=== PATIENT | male | born 1945 | race Caucasian/White ===

== ENCOUNTER 2024-11-12 20:51 | Emergency (ER) | payer MEDICARE, SELFPAY ==
[2024-11-12] VITALS (7 sets, daily range): BP systolic 138–155; BP diastolic 91–98; PULSE 70–100; RESP 12–16; TEMP 36.7; O2SAT 94–99
--- NOTE | ~2024-11-12 | XR_ITS ---
CHEST RADIOGRAPH CLINICAL HISTORY: covid (+), feeling weak . COMPARISON: None available TECHNIQUE: Single portable view of the chest. FINDINGS The cardiomediastinal silhouette is unremarkable. Patchy groundglass opacification bilaterally. Remainder of the lungs are clear. IMPRESSION: Patchy groundglass opacification bilaterally without a focal infiltrate. Reviewed, dictated and finalized at location A.
--- NOTE | 2024-11-12 21:17 | ED_ITS ---
HPI - Weakness General Chief complaint: Weakness Stated complaint: COVID+, WORSENING COVID S/S, WEARS 4L HOME O2. Time Seen by Provider: 11/12/24 20:51 Source: patient Mode of arrival: EMS Limitations: no limitations History of Present Illness HPI Narrative: This is a 79-year-old male who with PMH of COPD on chronic 4 L O2 nasal cannula who presents to the ED for chief complaint of feeling unwell with recent COVID diagnosis. Patient states that he tested positive for COVID about a week ago. States that he had been doing okay the last several days but today started feeling very nauseous and having dry heaves. Denies any actual emesis. Denies diarrhea or GI bleeding symptoms. Denies urinary symptoms, flank pain, chest pain. States that he feels like he is breathing well and has not had to use his rescue inhaler. He is taking his regular inhalers as prescribed. Related Data Allergies Allergy/AdvReac Type Severity Reaction Status Date / Time No Known Allergies Allergy Verified 11/12/24 23:18 Review of Systems 2 Review of Systems: All systems as dictated in HPI Exam 2 Narrative: GENERAL: Well-appearing, well-nourished, and in no acute distress. HEAD: Normocephalic, atraumatic. EYES: PERRLA and EOMI. ENT: Nares clear, no rhinorrhea or epistaxis. Mucous membranes moist. Oropharynx without tonsillar hypertrophy exudate or other lesions. NECK: Supple. No adenopathy or masses. CHEST: No respiratory distress. Clear to auscultation. No wheezes rales or rhonchi. Saturating well on 4 L nasal cannula. HEART: Regular rate and rhythm. No murmur heard. Normal peripheral pulses. ABDOMEN: Soft, nontender, nondistended, normal active bowel sounds. MSK: Normal range of motion. No edema. SKIN: Warm, dry, no rash. NEURO: Alert and oriented x4. No focal deficits. PSYCH: Normal mood and affect. Course Vital Signs Vital signs: Vital Signs Pulse Rate 100 11/12/24 20:54 Respiratory Rate 16 11/12/24 20:54 Blood Pressure 155/91 H 11/12/24 20:54 Pulse Oximetry 98 11/12/24 20:54 Oxygen Delivery Nasal Cannula 11/12/24 20:54 Oxygen Flow Rate 4 11/12/24 20:54 Temperature 98.1 F 11/12/24 21:05 Pulse Rate 93 11/13/24 00:35 Respiratory Rate 16 11/13/24 00:35 Blood Pressure 116/87 11/13/24 00:35 Pulse Oximetry 97 11/13/24 00:35 Oxygen Delivery Nasal Cannula 11/12/24 23:53 Oxygen Flow Rate 4 11/12/24 23:53 MDM - Weakness MDM Narrative Medical decision making narrative: This is a 79-year-old male who presents to the ED for chief complaint of feeling generally weak and nauseous, after recently diagnosed with COVID. Vitals are normal. Exam is benign. He is saturating well on 4 L nasal cannula which is his baseline with COPD. He is not feeling short of breath or having chest pain today. Lab work is unremarkable overall. CXR: IMPRESSION: Patchy groundglass opacification bilaterally without a focal infiltrate Patient is feeling much better after fluid administration, Zofran and Tylenol. Presentation consistent with viral syndrome. He is well out of the window for any benefit from something like Paxlovid Patient will be discharged in stable condition. Supportive measures discussed and return precautions given. Patient is understanding and agreeable with plan for discharge with PCP follow-up. Lab Data 11/12/24 22:08 11/12/24 22:08 Labs: Lab Results 11/12/24 Range/Units 22:08 WBC 9.2 (4.5-10.0) K/mm3 RBC 5.16 (4.6-6.20) M/mm3 Hgb 16.2 (14.0-18.0) g/dL Hct 47.8 (42.0-52.0) % MCV 92.6 (80-100) fl MCH 31.4 (26-34) pg MCHC 33.9 (32-36) g/dl RDW 13.4 (11.5-14.5) % Plt Count 360 (150-375) k/mm3 MPV 8.9 (7.4-10.4) fl Immature Gran % (Auto) 0.2 (0-0.5) % Neut % (Auto) 59.0 (45.5-73.1) % Lymph % (Auto) 24.5 (18.3-44.2) % [place] % (Auto) 7.3 (2.6-8.5) % Eos % (Auto) 8.2 H (0-4.4) % Baso % (Auto) 0.8 (0.2-1.2) % Lymph # (Auto) 2.26 (0.9-3.2) K/mm3 [place] # (Auto) 0.7 H (0.1-0.6) K/mm3 Eos # (Auto) 0.8 H (0-0.3) K/mm3 Baso # (Auto) 0.1 (0.0-0.1) K/mm3 Abs Immat Gran (auto) 0.02 (0.00-0.031) K/mm3 Absolute Neuts (auto) 5.5 (1.3-6.7) K/mm3 Absolute Nucleated RBC 0.000 (0.0-0.012) K/mm3 Nucleated RBC % 0.0 (0.0-0.2) % Sodium 140 (137-145) mmol/L Potassium 4.0 (3.4-5.0) mmol/L Chloride 106 (98-107) mmol/L Carbon Dioxide 23 (22-30) mmol/L Anion Gap 11 (4-12) mmol/L BUN 13 (9-20) mg/dL Creatinine 1.07 (0.7-1.3) mg/dL Estim Creat Clear Calc 54 ml/min Estimated GFR > 60 (59 - ) Glucose 108 (65-110) mg/dL Calcium 9.0 (8.4-10.2) mg/dL Total Bilirubin 0.7 (0.2-1.3) mg/dL AST 31 (17-59) U/L ALT 30 (6-50) U/L Alkaline Phosphatase 135 H (38-126) U/L Total Protein 7.0 (6.3-8.2) g/dL Albumin 4.2 (3.5-5.1) g/dL Urine Color Yellow (Yellow) Urine Appearance Clear (Clear) Urine pH 5.5 (5.0-9.0) Ur Specific [place] 1.016 (1.001-1.035) Urine Protein Trace (Negative) mg/dL Urine Glucose (UA) Negative (Negative) mg/dL Urine Ketones 1+ H (Negative) mg/dL Ur Blood (Man) Negative (Negative) Urine Nitrate Negative (Negative) Urine Bilirubin Negative (Negative) Urine Urobilinogen 1.0 (<2.0) mg/dL Leukocyte Esterase Rfl Negative (Negative) [place]/UL Urine RBC 0-2 (0-2) /hpf Urine WBC 0-5 (0-3) /hpf Ur Squamous Epith Cells None seen (Few) /hpf Urine Bacteria None seen /hpf Urine Casts 0-2 Discharge Plan Discharge Clinical Impression: Acute viral syndrome Patient Disposition: Home, Self-Care Condition: Stable Instructions: Antibiotic Form Additional Instructions: Exam and imaging today are reassuring overall. Please continue to stay well hydrated. Use Tylenol 500 mg every 6 hours as needed for aches and pains. Zofran as needed for nausea. If you have any new or worsening symptoms please return to the ER for further evaluation. Patient Language: Amharic Prescriptions: New ondansetron 4 mg tablet,disintegrating 4 mg PO Q8H PRN (Reason: nausea and vomiting) Qty: 10 0RF Follow-up/Referrals: UNKNOWN,DOCTOR [Primary Care Provider] - Time of Disposition: 00:03
--- NOTE | 2024-11-12 21:18 | ECG_ITS ---
Test Date: 2024-11-12 23:18:02 Measurements Intervals [place] Rate: 94 P: 77 LA: 180 QRS: -81 QRSD: 153 T: 66 QT: 390 QTc: 488 Interpretive Statements SINUS RHYTHM LEFT AXIS DEVIATION RIGHT BUNDLE BRANCH BLOCK INFERIOR INFARCT, AGE INDETERMINATE BASELINE ARTIFACT- I, II, AVR, AVL, V3-V6 ABNORMAL ECG No previous ECG available for comparison Electronically Signed On 11-13-2024 06:44:54 BUDGET EXAMINER by Gurwinder Kim D.O.
[2024-11-12 22:27] LABS: Basophils Absolute Auto 0.1 K/mm3 (0.0-0.1); Basophils Percent Auto 0.8 % (0.2-1.2); Eosinophils Absolute Auto 0.8 K/mm3 (0-0.3); Eosinophils Percent Auto 8.2 % (0-4.4); Hematocrit 47.8 % (42.0-52.0); Hemoglobin 16.2 g/dL (14.0-18.0); Immature Granulocyte Absolute 0.02 K/mm3 (0.00-0.031); Immature Granulocyte Percent A 0.2 % (0-0.5); Lymphocytes Absolute Auto 2.26 K/mm3 (0.9-3.2); Lymphocytes Percent Auto 24.5 % (18.3-44.2); Mean Corpuscular HGB Conc 33.9 g/dl (32-36); Mean Corpuscular Hemoglobin 31.4 pg (26-34); Mean Corpuscular Volume 92.6 fl (80-100); Mean Platelet Volume 8.9 fl (7.4-10.4); Monocytes Absolute Auto 0.7 K/mm3 (0.1-0.6); Monocytes Percent Auto 7.3 % (2.6-8.5); Neutrophils Absolute Auto 5.5 K/mm3 (1.3-6.7); Platelet Count Result 360 k/mm3 (150-375); Red Blood Count 5.16 M/mm3 (4.6-6.20); Red Cell Distribution Width 13.4 % (11.5-14.5); White Blood Count 9.2 K/mm3 (4.5-10.0)
[2024-11-12 22:33] LABS: Add Urine Microscopic? YES; Appearance Urine Clear (Clear); Bacteria Urine None Seen /hpf; Bilirubin Urine Negative (Negative); Blood Urine Negative (Negative); Color Urine Yellow (Yellow); Glucose Urine UA Negative (Negative); Ketones Urine 1+ mg/dL (Negative); Leukocyte Esterase Ur Negative LEU/UL (Negative); Nitrate Urine Negative (Negative); Non Pathogenic Casts 0-2; Protein Urine Trace mg/dL (Negative); RBC Urine 0-2 /hpf (0-2); Specific Grav Ur 1.016 (1.001-1.035); Squamous Epithelial Cell Urine None Seen /hpf (Few); WBC Urine 0-5 /hpf (0-3); pH Urine 5.5 (5.0-9.0)
[2024-11-12 22:37] LABS: Alanine Aminotransferase 30 U/L (6-50); Albumin Level 4.2 g/dL (3.5-5.1); Alkaline Phosphatase 135 U/L (38-126); Anion Gap 11 mmol/L (4-12); Aspartate Amino Transferase 31 U/L (17-59); Bilirubin,Total 0.7 mg/dL (0.2-1.3); Blood Urea Nitrogen 13 mg/dL (9-20); Carbon Dioxide 23 mmol/L (22-30); Chloride 106 mmol/L (98-107); Estimated CRCL calculation 54 ml/min; Estimated Glomerular Filt Rate > 60; Glucose 108 mg/dL (65-110); Sodium 140 mmol/L (137-145)
--- OUTSIDE RECORDS SUMMARY | 2024-11-12 23:17 | XMS_ITS | Encounter Summary ---
Author Organization [facility] Address [address] [place] [address] Phone Care Team Providers Care Environmental Laboratory Technician Name Role Phone Unknown, Notinfile Primary Care Provider Unavail able Rufus Candelario MD Primary Care Provider [phone] Coby Adler RN Unavailable [phone] Encounter Details Date Type Department Care Team (Latest Contact Info) Description 05/25/2015 Orders Only [facility] Scanning, Provider Social History Tobacco Use Types Packs/Day Years Used Date Smoking Tobacco: Never Assessed Sex and Gender Information Value Date Recorded Sex Assigned at Not on file Legal Sex Male 9:59 AM CDT Gender Identity Not on file Sexual Orientation Not on file documented as of this encounter Plan of Treatment Not on file documented as of this encounter Procedures Procedure Name Priority Date/Time Associated Diagnosis Comments SCAN - RADIOLOGY/IMAGING 05/25/2015 documented in this encounter Results * SCAN - RADIOLOGY/IMAGING (05/25/2015) Anatomical Region Laterality Modality Other us Provider Scanning Final Result documented in this encounter Visit Diagnoses Not on filedocumented in this encounter Additional Health Concerns Infection Onset Date Last Indicated Resolved Time Tuberculosis (rule out) 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 Ana Crook, RN AFB + BW on 10/1710/23/2023 10/23/2023 12/10/2023 3:[address] COVID: Suspected 12/10/2023 12/10/2023 12/10/2023 8:28 PM BLENDING LINE ATTENDANT Rhino/Enterovirus 12/10/2023 12/10/2023 12/17/2023 3:05 AM CDT documented as of this encounter Care Teams Environmental Laboratory Technician Relationship Specialty Start Date End Date Unknown, Notinfile PCP - General 01/24/23 04/14/23 Rufus Candelario MD [address] [place] [address] PCP - General Family Medicine 04/15/23 Coby Adler, RN [address] [address] [facility] Out[facility] Welder Fitter 12/17/23 12/17/23 documented as of this encounter
--- OUTSIDE RECORDS SUMMARY | 2024-11-12 23:17 | XMS_ITS | Encounter Summary ---
Author Organization [facility] Address [address] [place] [address] Phone Care Team Providers Care Electric Meter Tester Helper Name Role Phone Unknown, Notinfile Primary Care Provider Unavail able Rufus Candelario MD Primary Care Provider [phone] Coby Adler RN Unavailable [phone] Encounter Details Date Type Department Care Team (Latest Contact Info) Description 02/18/2020 Orders Only [facility] Scanning, Provider [...] Date/Time Associated Diagnosis Comments SCAN - RADIOLOGY/IMAGING 02/18/2020 documented in this encounter Results * SCAN - RADIOLOGY/IMAGING (02/18/2020) Anatomical Region Laterality Modality Other us Provider [...] COVID: Suspected 12/10/2023 12/10/2023 12/10/2023 8:28 PM VENTILATOR SPECIALIST Rhino/Enterovirus 12/10/2023 12/10/2023 12/17/2023 3:05 AM CDT documented as of this encounter Care Teams Electric Meter Tester Helper Relationship Specialty Start Date End Date Unknown, Notinfile PCP - General 01/24/23 04/14/23 Rufus Candelario MD [address] [place] [address] PCP - General Family Medicine 04/15/23 Coby Adler, RN [address] [address] [facility] Outpatient Environmental Consultant 12/17/23 12/17/23 documented as of this encounter
--- OUTSIDE RECORDS SUMMARY | 2024-11-12 23:17 | XMS_ITS | Encounter Summary ---
Author Organization [facility] Address [address] [place] [address] Phone Care Team Providers Care Assessment Expert Name Role Phone Unknown, Notinfile Primary Care Provider Unavail Rufus Mack MD Primary Care Provider [phone] Coby Adler RN Unavailable [phone] Encounter Details Date Type Department Care Team (Latest Contact Info) Description 08/08/2022 Orders Only [facility] Scanning, Provider [...] Date/Time Associated Diagnosis Comments SCAN - RADIOLOGY/IMAGING 08/08/2022 documented in this encounter Results * SCAN - RADIOLOGY/IMAGING (08/08/2022) Anatomical Region Laterality Modality Other us Provider Scanning Final Result documented in this encounter Visit Diagnoses Not on filedocumented in this encounter Additional Health Concerns Infection Onset Date Last Indicated Resolved Time Tuberculosis (rule out) 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 Ana Crook, SER[employer]IN [employer] + BW on 10/1710/23/2023 10/23/2023 12/10/2023 3:[address] COVID: Suspected 12/10/2023 12/10/2023 12/10/2023 8:28 PM VICE PRESIDENT GLOBAL ADVERTISING SALES Rhino/Enterovirus 12/10/2023 12/10/2023 12/17/2023 3:05 AM CDT documented as of this encounter Care Teams Assessment Expert Relationship Specialty Start Date End Date Unknown, Notinfile PCP - General 01/24/23 04/14/23 Rufus Candelario MD [address] [place] [address] PCP - General Family Medicine 04/15/23 Coby Adler, RN [address] [facility] [address] [place] [address] [facility] Outpatient Ocean Import Representative 12/17/23 12/17/23 documented as of this encounter
--- OUTSIDE RECORDS SUMMARY | 2024-11-12 23:17 | XMS_ITS | Encounter Summary ---
Author Organization [facility] Address [address] [place] [address] Phone Care Team Providers Care Automotive Machinist Name Role Phone Unknown, Notinfile Primary Care Provider Unavail Rufus Mack MD Primary Care Provider [phone] Coby Adler RN Unavailable [phone] Encounter Details Date Type Department Care Team (Latest Contact Info) Description 08/23/2021 Orders Only [facility] Scanning, Provider [...] Date/Time Associated Diagnosis Comments SCAN - RADIOLOGY/IMAGING 08/23/2021 documented in this encounter Results * SCAN - RADIOLOGY/IMAGING (08/23/2021) Anatomical Region Laterality Modality Other us Provider Scanning Edited Result - Final documented in this encounter Visit Diagnoses Not on filedocumented in this encounter Additional Health Concerns Infection Onset Date Last Indicated Resolved Time Tuberculosis (rule out) 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 Ana Crook RN [employer] + BW on 10/1710/23/2023 10/23/2023 12/10/2023 3:[address] COVID: Suspected 12/10/2023 12/10/2023 12/10/2023 8:28 PM PRODUCTION CONTROL PEGBOARD CLERK Rhino/Enterovirus 12/10/2023 12/10/2023 12/17/2023 3:05 AM CDT documented as of this encounter Care Teams Automotive Machinist Relationship Specialty Start Date End Date Unknown, Notinfile PCP - General 01/24/23 04/14/23 Rufus Candelario MD [address] [place] [address] PCP - General Family Medicine 04/15/23 Coby Adler, SERAFIN [address] [address] [facility] Outpatient Police Chief Deputy 12/17/23 12/17/23 documented as of this encounter
--- OUTSIDE RECORDS SUMMARY | 2024-11-12 23:18 | XMS_ITS | Encounter Summary ---
Author Organization [facility] Address [address] [place] [address] Phone Care Team Providers Care Ux Researcher Name Role Phone Unknown, Notinfile Primary Care Provider Unavail able Rufus Candelario MD Primary Care Provider [phone] Coby Adler RN Unavailable [phone] Encounter Details Date Type Department Care Team (Latest Contact Info) Description 08/24/2020 Orders Only [facility] Scanning, Provider [...] Date/Time Associated Diagnosis Comments SCAN - RADIOLOGY/IMAGING 08/24/2020 documented in this encounter Results * SCAN - RADIOLOGY/IMAGING (08/24/2020) Anatomical Region Laterality Modality Other us Provider [...] COVID: Suspected 12/10/2023 12/10/2023 12/10/2023 8:28 PM TERRAZZO INSTALLER Rhino/Enterovirus 12/10/2023 12/10/2023 12/17/2023 3:05 AM CDT documented as of this encounter Care Teams Ux Researcher Relationship Specialty Start Date End Date Unknown, Notinfile PCP - General 01/24/23 04/14/23 Rufus Candelario MD [address] [place] [address] PCP - General Family Medicine 04/15/23 Coby Adler, RN [address] [address] [facility] Outpatient Materials Supervisor 12/17/23 12/17/23 documented as of this encounter
--- OUTSIDE RECORDS SUMMARY | 2024-11-12 23:18 | XMS_ITS | Encounter Summary ---
Author Organization [facility] Address [address] [place] [address] Phone Care Team Providers Care Guard Driver Name Role Phone Unknown, Notinfile Primary Care Provider Unavail able Rufus Candelario MD Primary Care Provider [phone] Coby Alder RN Unavailable [phone] Encounter Details Date Type Department Care Team (Latest Contact Info) Description 08/03/2019 Orders Only [facility] Scanning, Provider [...] Date/Time Associated Diagnosis Comments SCAN - RADIOLOGY/IMAGING 08/03/2019 documented in this encounter Results * SCAN - RADIOLOGY/IMAGING (08/03/2019) Anatomical Region Laterality Modality Other us Provider [...] COVID: Suspected 12/10/2023 12/10/2023 12/10/2023 8:28 PM OPS MANAGER Rhino/Enterovirus 12/10/2023 12/10/2023 12/17/2023 3:05 AM CDT documented as of this encounter Care Teams Guard Driver Relationship Specialty Start Date End Date Unknown, Notinfile PCP - General 01/24/23 04/14/23 Rufus Candelario MD [address] [place] [address] PCP - General Family Medicine 04/15/23 Coby Adler, RN [address] [address] [facility] Outpatient Wall Cleaner 12/17/23 12/17/23 documented as of this encounter
--- OUTSIDE RECORDS SUMMARY | 2024-11-12 23:18 | XMS_ITS | Clinical Summary ---
Author Organization [facility] Address [address] [place] [address] Care Team Providers Care Jewelry Salesperson Name Role Phone Rufus Candelario MD Primary Care Provider [phone] Allergies No known active allergies Medications cyanocobalamin, vitamin B-12, (VITAMIN B-12 ORAL) Take by mouth daily Active albuterol HFA (Ventolin HFA) 90 mcg/actuation inhaler Inhale 1 puff every 6 (six) hours as needed for wheezing 3 each 3 04/15/20 23 Active naloxone (NARCAN) 4 mg/actuation spray,non-aerosol Administer 1 spray into affected nostril(s) as needed for opioid reversal or respiratory depression Call 911. Administer a single spray in one nostril. Repeat every 3 minutes as needed if no or minimal response. 2 each 1 05/01/20 23 Active vitamin D3-vitamin K2 25 mcg (1,000 unit)-90 mcg tablet,disintegrat ing Take by mouth daily Active fluticasone-umecli din-vilanter (Trelegy Ellipta) 200-62.5-25 mcg inhaler Inhale 1 puff daily 90 each 3 10/09/19 24 Active gabapentin (NEURONTIN) 300 mg capsule Take 1 capsule (300 mg total) by mouth 3 (three) times a day 90 capsule 11 12/16/19 24 025 Active ondansetron ODT (ZOFRAN-ODT) 4 mg disintegrating tabletIndications: Drug-induced nausea and vomiting Take 1 tablet (4 mg total) by mouth every 8 (eight) hours as needed for nausea 20 tablet 12/20/19 24 Active rosuvastatin (CRESTOR) 5 mg tablet Take 1 tablet by mouth once daily 100 tablet 1 03/08/[address] (CYMBALTA) 60 mg capsule Take 1 capsule by mouth once daily 90 capsule 3 06/29/20 24 Active amLODIPine (NORVASC) 10 mg tablet Take 1 tablet by mouth once daily 90 tablet 3 06/29/20 24 Active oxygen Administer 2 L/min into each nostril as needed Active allopurinoL (ZYLOPRIM) 100 mg tablet Take 1 tablet by mouth once daily 90 tablet 09/14/20 24 Active oxyCODONE (ROXICODONE) 20 mg tabletIndications: Pain Take 1 tablet (20 mg total) by mouth every 6 (six) hours as needed for pain 120 tablet 10/19/19 25 025 Active oxyCODONE (ROXICODONE) 20 mg tabletIndications: Pain Take 1 tablet (20 mg total) by mouth every 6 (six) hours as needed for pain 120 tablet 09/22/20 24 025 Discontin ued(Reord er) Active Problems Problem Noted Date Diagnosed Date Concern about memory 09/08/2024 Assessment & Plan (09/08/2024 4:08 PM FINISH INSPECTOR): Patient reports some concerns about memory, especially short-term Often things will come back to home, though can take extra time to find things Able to drive and does not get lost, able to manage finances Power of claims attorney for Will continue to monitor Drug-induced nausea and vomiting 12/20/2023 Assessment & Plan (12/20/2023 11:18 AM CDT): Has been having nausea with his Linezolid Has been eating with medication Zofran as needed Hypoxia 12/16/2023 Assessment & Plan (12/16/2023 11:25 AM CDT): -check walking O2 assessment prior to discharge -O2 walk test in clinic recently did not show hypoxia Bronchiectasis without complication 12/11/2023 Assessment & Plan (12/12/2023 1:21 PM FINISH INSPECTOR): -continue airway clearance with hypertonic saline twice daily and flutter valve Assessment & Plan (12/11/2023 12:39 PM FINISH INSPECTOR): -continue airway clearance with hypertonic saline twice daily and flutter valve 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 Afterwards likely transition to inhaled amikacin, clofazimine, ?linezolid vs omadacycline -monitor irration at PICC insertion site (demarcated today) Assessment & Plan (12/12/2023 1:20 PM FINISH INSPECTOR): -diagnosed 10/2023 on bronchoscopy, nodular disease w/ cavitary nodules but no large cavities -subspecies abscessus, macrolide resistant -continue Imipenem 500mg IV BID (renally dosed), tigecycline 25mg IV daily (increase to 50mg IV daily as tolerated) -start PO linezolid 600mg daily -PICC placed, plan for 2 months of IV antibiotics, tentatively. Afterwards likely transition to inhaled amikacin, clofazimine, ?linezolid vs omadacycline Assessment & Plan (12/11/2023 12:36 PM FINISH INSPECTOR): -diagnosed 10/2023 on bronchoscopy, nodular disease w/ cavitary nodules but no large cavities -subspecies abscessus, macrolide resistant -start Imipenem 500mg IV BID (renally dosed), tigecycline 25mg IV daily (increase to 50mg IV daily as tolerated) -start PO linezolid 600mg daily -PICC placed, plan for 2 months of IV antibiotics, tentatively. Afterwards likely transition to inhaled amikacin, clofazimine, ?linezolid vs omadacycline Assessment & Plan (12/16/2023 3:17 PM CDT): Bronch 10/17/23 grew Mycobacterium abscessus, a few M chimaera-intracellulare. Now admitted for treatment. - PICC placed. - Pulm following - Started IV imipenem 500 BID (renally dosed), tigecycline 50 mg IV daily and PO linezolid 600 daily. Planning to discharge with linezolid BID with weekly labs - Acappella flutter valve - Hypertonic saline nebs - Discuss referral for home infusion with CM Chronic pain 12/10/2023 Assessment & Plan (09/08/2024 4:07 PM FINISH INSPECTOR): Stable, has chronic pain, multiple sites, generally well controlled with current medications Patient unable to bend over to do work, has pain with walking Current doses no longer providing significant relief Patient is strictly medications, no risk for abuse Will increase oxycodone to 20 mg q.6 hours p.r.n. Assessment & Plan (12/10/2023 6:36 PM FINISH INSPECTOR): - cont home oxy, duloxetine, gabapentin - pending renal function, may want to dose reduce gabapentin - stool softeners PRN Gout 12/10/2023 Assessment & Plan (02/11/2024 4:05 PM CDT): Stable, well controlled, no major flares Continue allopurinol 100 mg daily Assessment & Plan (12/10/2023 6:35 PM FINISH INSPECTOR): - allopurinol CKD (chronic kidney disease) 12/10/2023 Assessment & Plan (09/08/2024 4:07 PM FINISH INSPECTOR): Last EGFR was 54, PTH mildly elevated normal serum calcium, will continue to avoid nephrotoxic medications; focused with the appropriate blood pressure control If advancement of disease, may benefit from SGLT2 inhibitor Assessment & Plan (12/16/2023 11:25 AM CDT): -monitor renal function, renally dose meds -elevation in creatinine to 1.9 3/6. Unlikely due to antibiotics which were just started, but will monitor. Cr currently stable and at baseline Assessment & Plan (12/12/2023 1:21 PM FINISH INSPECTOR): -monitor renal function, renally dose meds -elevation in creatinine to 1.9 3/6. Unlikely due to antibiotics which were just started, but will monitor. Agree with IV hydration Assessment & Plan (12/11/2023 12:37 PM FINISH INSPECTOR): -monitor renal function, renally dose meds Assessment & Plan (12/14/2023 11:54 AM FINISH INSPECTOR): Cr 1.55 outpatient, presumably representing CKD3. 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 - RPP + rhino/entero virus - CXR as elsewhere - abx as elsewhere - see COPD Cervical radiculopathy 04/30/2023 Assessment & Plan (07/22/2023 10:03 AM CDT): Continues to have constant pain; has some relief with current medications to improve function -symptoms worse in lower back -with medication able to take [facility] and -use every 6 hours (4 tabs per day) Left foot drop 04/30/2023 Lumbosacral neuritis 04/30/2023 Lumbar spondylosis with myelopathy 04/30/2023 Assessment & Plan (02/11/2024 4:05 PM CDT): Continues to have significant pain, some progression, doing well with current medications with no major side effects Constipation controlled with laxatives Continue gabapentin 300 mg t.i.d., oxycodone 15 mg q.6 hours p.r.n. Assessment & Plan (07/22/2023 12:45 PM CDT): Has left calf pain with walking -had surgery in 2014; with left foot drop foot Continue gabapentin 600 mg t.i.d., oxycodone 15 mg q.i.d. 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, can not run lift or bull due to pain and drop foot Can not engaging guarding Continue oxycodone q.i.d.; has good relief with pain medications, though continues to have limitations to physical activities due to neuropathy and myelopathy Continue oxycodone 15 mg q.i.d.; gabapentin 600 mg t.i.d., duloxetine 60 mg daily Chronic obstructive pulmonary disease 04/15/2023 Assessment & Plan (09/08/2024 4:07 PM FINISH INSPECTOR): Stable, patient reports it takes less to cause dyspnea and cause limitations SpO2 is low today At home uses oxygen, has generator Does not meet his often with general movement Continue Trelegy Ellipta 1 puff daily Assessment & Plan (02/11/2024 4:04 PM CDT): Stable, doing well with patient, no major concerns; patient declines further treatment for mycobacterium; had significant side effects related to antibacterial medications Patient is not able to stay at hospital as he needs to be at home to care for Continue Trelegy Ellipta; continue albuterol Continue to monitor breathing function determine if further treatment will be required Assessment & Plan (12/13/2023 4:45 PM FINISH INSPECTOR): -Continue home Trelegy daily and albuterol prn Assessment & Plan (12/12/2023 1:20 PM FINISH INSPECTOR): -Continue home Trelegy daily and albuterol prn Assessment & Plan (12/11/2023 12:36 PM FINISH INSPECTOR): Continue home Trelegy and albuterol prn Assessment & Plan (12/11/2023 10:25 AM FINISH INSPECTOR): COPD w/ severe airflow limitation and lower lobe predominant bronchiectasis. Thirty-five pack-year smoking history, quit in 2001. Patient reports he has not been wearing any oxygen at home recently, although did have a walking O2 assessment indicating the need for 2 L at night and with exertion. On arrival to the floor, SpO2 85% on room air, improved to 88% on 2 L. - cont home inhalers - CXR with Scattered nodular opacities in the right upper lobe were better evaluated on prior CT scan. No consolidation, edema, effusion or PTX. - RPP + rhino/enterovirus, supportive care - pulmonology c/s, appreciate recommendations - supplemental oxygen to maintain SpO2 at least 88% Assessment & Plan (07/22/2023 12:43 PM CDT): Breathing is improved, completed treatment for exacerbatino -continues to have mild (improving) cough with some production -no fever or chills -continues to use inhalers as needed -has been off oxygen for 6 months --was discontinued only due to move; had been on O2 for nightime and during exertion -did not use inhaler when feeling bad, but tries to use every day Continue Trelegy Ellipta 1 puff daily, albuterol p.r.n. Assessment & Plan (04/30/2023 5:52 PM CDT): Stable, well controlled; continue Trelegy 1 puff daily Hypertensive disorder 02/09/2019 Assessment & Plan (02/11/2024 4:05 PM CDT): Stable, well controlled, blood pressure at goal today; no chest pain or headaches, continue to monitor Assessment & Plan (12/15/2023 7:15 AM CDT): - Continue home amlodipine - Holding losartan Assessment & Plan (07/22/2023 12:44 PM CDT): Stable, well controlled -bp at goal today; n oside effects from medicatin Continue losartan 50 mg daily, amlodipine 10 mg daily Assessment & Plan (04/30/2023 5:52 PM CDT): Stable, well controlled; blood pressure at target Continue amlodipine 10 mg daily, losartan 50 mg daily Dyslipidemia 08/10/2018 Assessment & Plan (09/08/2024 4:06 PM FINISH INSPECTOR): Stable, well controlled Continue rosuvastatin 5 mg daily Assessment & Plan (02/11/2024 4:05 PM CDT): Stable, well controlled, LDL goal Continue Crestor 5 mg daily Assessment & Plan (12/15/2023 7:14 AM CDT): - Continue home statin Assessment & Plan (07/22/2023 12:44 PM CDT): Stable, follow-up with lipid panel; continue Crestor 5 mg daily; encourage low- fat high-fiber diet Encounters Date Type Department Care Team Description 10/14/2024 4:10 PM FINISH INSPECTOR - 10/14/2024 11:59 PM FINISH INSPECTOR Hospital Encounter [facility] [address] [place] [address] Chronic obstructive pulmonary disease, unspecified COPD type (HCC) Discharge Disposition: Discharge to home or self care 10/14/2024 3:30 PM FINISH INSPECTOR - 10/14/2024 11:59 PM FINISH INSPECTOR Hospital Encounter [facility] [address] [facility] [address] [place] [address] Chronic obstructive pulmonary disease, unspecified COPD type (HCC) Discharge Disposition: Discharge to home or self care 10/14/2024 3:30 PM FINISH INSPECTOR Office Visit [facility] [address] [facility] [address]th [place] [address] [place] [address] Lester Hair MD Chronic obstructive pulmonary disease, unspecified COPD type (HCC) (Primary Dx); Bronchiectasis without complication (HCC); Cavitary lesion of lung; 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; Hypoxemia 10/14/2024 Telephone [facility] [address] [facility] 8th [place] [address] [place] [address] Andrea Sherman RN 10/14/2024 Orders Only [facility] [address] [facility] 8[address] [place] [address] [place] [address] Andrea Sherman RN Chronic obstructive pulmonary disease, unspecified COPD type (HCC) (Primary Dx) 08/27/2024 Telephone [facility] [address] [phone] Rufus Candelario MD Test Results 08/25/2024 11:00 AM FINISH INSPECTOR Office Visit [facility] [address] [address] Rufus Candelario MD Medicare annual wellness visit, subsequent (Primary Dx); Need for hepatitis B screening test; Encounter for hepatitis C screening test for low risk patient; Dyslipidemia; Chronic pain syndrome; Elevated PTHrP level; Centrilobular emphysema (HCC); Stage 3a chronic kidney disease (HCC); Concern about memory 08/24/2024 Telephone [facility] [address] [address] Rufus Candelario MD Test Results 08/21/2024 11:22 AM FINISH INSPECTOR - 08/21/2024 11:59 PM FINISH INSPECTOR Hospital Encounter [facility] [address] [place] [address] Hemoptysis Discharge Disposition: Discharge to home or self care 08/21/2024 11:13 AM FINISH INSPECTOR - 08/21/2024 11:59 PM FINISH INSPECTOR Hospital Encounter [address] [address] Hemoptysis; Mycobacterium abscessus infection Discharge Disposition: Discharge to home or self care 08/20/[address] [address] Cristy Quick 08/19/2024 10:20 AM FINISH INSPECTOR Lab [facility] [address] [place] [phone] Dyslipidemia; Encounter for hepatitis C screening test for low risk patient; Need for hepatitis B screening test; Hypocalcemia 08/18/2024 Telephone [facility] [address] [address] Ruufs Candelario MD Lab Orders from Last 3 Months Immunizations Name Administration Dates Next Due Influenza, Quadrivalent, Hig h Dose, Preservative Free, Intrr 08/02/2023 Influenza, Quadrivalent, Spl it, Intramuscular 07/20/2020 Influenza, Quadrivalent, Spl it, Preservative Free, Intramuscular 10/13/2014 Influenza, Trivalent, Cell Culture-based MDCK, Preservative Free, Antibiotic Free, Intramuscular 07/21/2018,06/11/2017 Influenza, Trivalent, High D ose, Split, Preservative Free, Intramuscular 06/29/2019 Influenza, Trivalent, IM (MDV) 06/18/2016,2014 Influenza, Unspecified 07/30/2024,2023(Deferred: Patient ill today),09/23/2023(Deferred: Patient Refused),07/22/2023(Deferred: Patient Refused),07/11/2023(Deferred: Patient Refused),10/07/2022(Deferred: Patient Refused),07/13/2022(Deferred: Patient Refused),07/07/2022(Deferred: Patient Refused),10/07/2021(Deferred: Patient Refused),07/20/2020,06/29/2019, 018 MMR 03/13/2019 Pneumococcal Conjugate 7-Valent 10/02/2016 Pneumococcal Polysaccharide PPV23 10/02/2016,,07/21/2015 RSV Vaccine, Pref, Recombina nt, Subunit, Adjuvanted, PF, IM (Arexvy) 08/02/2023 Sars-cov-2 Covid-19 Mrna, Bi valent, Original/omicron Ba.1 07/30/2024 ZOSTER Recombinant 07/14/2019,05/12/2019 Surgical History Surgery Date Site/Laterality Comments SPINE SURGERY 10/07/2014 - 10/06/2015 L4 Medical History Medical History Date Comments Hypertension COPD (chronic obstructive pulmonary disease) (HC C) Hyperlipidemia Chronic kidney disease Family History Medical History Relation Name Comments Heart disease Mother Hypertension Mother Stroke Mother Relation Name Status Comments Mother Social History Tobacco Use Types Packs/Day Years Used Date Smoking Tobacco: Former Cigarettes Smokeless Tobacco: Never AUDIT-C Answer Date Recorded Q1: How often do you have a drink containing alc ohol? 2-3 times a week 10/17/2023 Q2: How many drinks containi ng alcohol do you have on a typical day when you are drinking? 3 or 4 10/17/2023 Q3: How often do you have si x or more drinks on one occasion? Never 10/17/2023 PHQ-2 Answer Date Recorded PHQ-2 Total Score (If total score is 3 or more points, staff should administer the PHQ-9) 0 08/25/2024 Personal Safety Answer Date Recorded Have you ever been in or are you currently in a harmful physical or emotional relationship or is someone making you feel afraid or unsafe? Denies 12/10/2023 Sex and Gender Information Value Date Recorded Sex Assigned at Not on file Legal Sex Male 9:59 AM CDT Gender Identity Not on file Sexual Orientation Not on file Obstetrics History Last Filed Vital Signs Vital Sign Reading Time Taken Comments Blood Pressure 150/68 10/14/2024 3:21 PM FINISH INSPECTOR Pulse 107 10/14/2024 3:21 PM FINISH INSPECTOR Temperature 37.1 C (98.8 F) 10/14/2024 3:21 PM FINISH INSPECTOR Respiratory Rate 18 10/14/2024 3:21 PM FINISH INSPECTOR Oxygen Saturation 84% 10/14/2024 3:21 PM FINISH INSPECTOR Inhaled Oxygen Concentration - - Weight 88 kg (194 lb) 10/14/2024 3:21 PM FINISH INSPECTOR Height 182.9 cm (6') 10/14/2024 3:21 PM FINISH INSPECTOR Body Mass Index 26.31 10/14/2024 3:21 PM FINISH INSPECTOR Plan of Treatment Health Maintenance Due Date Last Done Comments DTaP/Tdap/Td Vaccine (1 - Tdap) 1956 Depression Screening 08/25/2025 08/25/2024, 01/22/2024, 12/20/2023, Additional history exists Fall Risk Assessment 08/25/2025 08/25/2024, 01/22/2024, 12/16/2023, Additional history exists Well Visit 65+ 08/25/2025 08/25/2024 Pneumococcal vaccine 65+ Completed 016, 10/02/2016, 09/20/2015, Additional history exists Zoster Vaccine Completed 07/14/2019, 05/12/2019 Influenza Vaccine Completed 07/30/2024, , 06/25/2022, Additional history exists Hepatitis B Screening Completed 08/19/2024 Hepatitis C Screening Completed 08/19/2024 Procedures Procedure Name Priority Date/Time Associated Diagnosis Comments XR CHEST PA LATERAL 2 VIEWS Schedule Routine, Read Routine (OP Routine) 10/14/2024 4:16 PM FINISH INSPECTOR Chronic obstructive pulmonary disease, unspecified COPD type (HCC) PULMONARY FUNCTION TEST (PFT) Routine 10/14/2024 4:01 PM FINISH INSPECTOR Chronic obstructive pulmonary disease, unspecified COPD type (HCC) XR CHEST PA LATERAL 2 VIEWS Schedule Routine, Read Routine (OP Routine) 08/21/2024 11:39 AM FINISH INSPECTOR Hemoptysis CT CHEST WO CONTRAST Schedule Routine, Read Routine (OP Routine) 08/21/2024 11:28 AM FINISH INSPECTOR Hemoptysis Mycobacterium abscessus infection EGFR Routine 08/19/2024 10:22 AM FINISH INSPECTOR Hypocalcemia DIFFERENTIAL AUTO Routine 08/19/2024 10: 22 AM FINISH INSPECTOR Dyslipidemia COMPREHENSIVE METABOLIC PANEL Routine 08/19/2024 10:22 AM FINISH INSPECTOR Hypocalcemia PTH Routine 08/19/2024 10:22 AM FINISH INSPECTOR Hypocalcemia PHOSPHORUS Routine 08/19/2024 10:22 AM FINISH INSPECTOR Hypocalcemia MAGNESIUM Routine 08/19/2024 10:22 AM FINISH INSPECTOR Hypocalcemia VITAMIN D 25 HYDROXY Routine 08/19/2024 10:22 AM FINISH INSPECTOR Hypocalcemia LIPID PANEL Routine 08/19/2024 10:22 AM FINISH INSPECTOR Dyslipidemia CBC WITH AUTO DIFFERENTIAL Routine 08/19/2024 10:22 AM FINISH INSPECTOR Dyslipidemia HEPATITIS B SURFACE ANTIGEN Routine 08/19/2024 10:22 AM FINISH INSPECTOR Need for hepatitis B screening test HEPATITIS B CORE ANTIBODY, TOTAL Routine 08/19/2024 10:22 AM FINISH INSPECTOR Need for hepatitis B screening test HEPATITIS B SURFACE ANTIBODY (IMMUNE STATUS) Routine 08/19/2024 10:22 AM FINISH INSPECTOR Need for hepatitis B screening test HEPATITIS C ANTIBODY Routine 08/19/2024 10:22 AM FINISH INSPECTOR Encounter for hepatitis C screening test for low risk patient ALKALINE PHOSPHATASE, ISOENZYMES Routine 08/19/2024 10:18 AM FINISH INSPECTOR from Last 3 Months Results * X-ray chest 2 views (10/14/2024 4:16 PM FINISH INSPECTOR) Anatomical Region Laterality Modality Body, Chest N/A Computed Radiogr aphy 10/14/2024 4:59 PM FINISH INSPECTOR Impressions 10/14/2024 5:00 PM FINISH INSPECTOR The current study is compared with the prior radiograph and CT dated 08/21/2024. No pneumothorax or pleural effusion. No focal consolidation. The lungs are mildly hyperexpanded. The cardiomedial sternal silhouette is normal. Numerous subcentimeter pulmonary nodules in the setting of the patient's treated nontuberculous mycobacterial infection are better seen on comparison CT, most of which are not well seen on this study. Remonstrated left upper lobe pulmonary nodule with central cavitation. Dictated by: Orville Perkins M.D. The radiology attending physician has personally reviewed this study, and had reviewed and/or edited this written report and agrees with it. Electronically signed by: Haroon Garcia M.D. Narrative 10/14/2024 5:00 PM FINISH INSPECTOR EXAMINATION: 2 view chest radiograph Procedure Note Haroon Garcia MD - 10/14/2024 EXAMINATION: 2 view chest radiograph IMPRESSION: The current study is compared with the prior radiograph and CT dated 08/21/2024. No pneumothorax or pleural effusion. No focal consolidation. The lungs are mildly hyperexpanded. The cardiomedial sternal silhouette is normal. Numerous subcentimeter pulmonary nodules in the setting of the patient's treated nontuberculous mycobacterial infection are better seen on comparison CT, most of which are not well seen on this study. Remonstrated left upper lobe pulmonary nodule with central cavitation. Dictated by: Orville Perkins M.D. The radiology attending physician has personally reviewed this study, and had reviewed and/or edited this written report and agrees with it. Electronically signed by: Haroon Garcia M.D. us Lester Sidhu MD IMG XR PROCEDURES F inal Result * Pulmonary Function Test -[facility] PFT [facility]- [facility]; Oxygen Assessment Titration (10/14/2024 4:01PM FINISH INSPECTOR) Anatomical Region Laterality Modality PFT Narrative 10/15/2024 5:16 PM FINISH INSPECTOR Table formatting from the original result was not included. [facility] of [facility] & Critical Care Medicine [address] [place] [address]; [place] [facility]; [place] [address]; [phone] Pulmonary Function Laboratory Pulmonary Stress Test Simple/Oxygen Assessment Patient: Norman Fry Date: 10/14/2024 : 1945 Ht: 72 IN Wt: 194 LBS Time (min) Distance (ft)/ Reyes O2 L/M SpO2 HR Som* BP FEV1 % Pred Rest: RA 86 97 2 150/79 2/4 88/91 103/96 Walk/Bike: 1 4 91 107 2 2 4/6 87/89 110/114 2 3 6/8 87/91 110/106 2 4 8 89 119 4 5 88/90 113/119 4 6 min 0 sec 8 89 122 5 Recovery: 1 8 90 116 5 134/76 3 8 92 110 3 *Som rate of perceived exertion (1-10 dyspnea scale) Reji, CHEST 2003; [id number] Walk Test Summary: Six Minute Walk Distance: 850 ft Six-minute Walk Work [distance (m) x body wt (kg)]: 09968 kg.m (normal >60,000kg.m) Oxygen required to maintain SpO2 greater than 90% during six minutes of walkin L/M Comments: PATIENT UNABLE TO TO TOLERATE 15 L. Interpretation: Breathing room air and then supplemental O2 at 2 L/min, SpO2 is in the hypoxemic range at rest. During exercise sufficient to increase pulse, SpO2 falls to hypoxemic levels while breathing supplemental O2 at 4, 6, and then 8 L/min. On this basis, SpO2 is adequate at rest breathing supplemental O2 at 4 L/min and while walking breathing supplemental O2 at 15 L/min. Petar Maher MD By signing this report, the attending pulmonary physician certifies that he has personally reviewed and interpreted the graphic and numerical data associated with this pulmonary function study and has reviewed and /or edited a preliminary draft report and agrees with the written final report. us Lester Sidhu MD PFT ORDERABLES Fin al Result * XR Chest PA Lateral 2 Views (08/21/2024 11:39 AM FINISH INSPECTOR) Anatomical Region Laterality Modality Body, Chest N/A Computed Radiogr aphy 08/25/2024 8:44 PM FINISH INSPECTOR Narrative 08/25/2024 8:52 PM FINISH INSPECTOR EXAM DESCRIPTION: XR CHEST PA LATERAL 2 VIEWS REASON FOR STUDY: Coughed up blood x 3 weeks ago. No complaints at this time. Former smoker. Hx of COPD. Pt states that he has 2 spots on his lungs the past 2 years. No surgery to heart/lungs. TECHNIQUE: There are 2 radiographic view(s) of the chest. COMPARISON: Prior exam 12/11/2023, 10/17/2023 and 08/16/2023 FINDINGS: LUNGS: Lungs are hyperinflated as was previously seen. No confluent infiltrate or effusion. Areas of tiny nodularity have not significantly changed on the plain films compared to the prior exams. Patient has been recently followed up with CT. HEART/MEDIASTINUM: Cardiac silhouette normal in size. Mediastinal and hilar contours appear normal. LINES/TUBES: None. BONES: No acute osseous abnormality. IMPRESSION: Hyperinflation of the lungs as was previously seen, unchanged. Mild underlying emphysematous change favored. Areas of tiny nodularity have not significantly changed on the plain films compared to the prior exams dating back to 08/16/2023. Nodules have been followed by CT which is more sensitive. THIS IS AN ELECTRONICALLY VERIFIED FINAL REPORT 08/25/2024 8:52 PM - Electronically signed by Haroon JERRY: ROSALINO Report ID: [id number] Reading Location: [place] [address] Procedure Note Haroon Beatty MD - 08/25/2024 EXAM DESCRIPTION: XR CHEST PA LATERAL 2 VIEWS REASON FOR STUDY: Coughed up blood x 3 weeks ago. No complaints at this time. Formersmoker. Hx of COPD. Pt states that he has 2 spots on his lungs the past 2years. No surgery to heart/lungs. TECHNIQUE: There are 2 radiographic view(s) of the chest. COMPARISON: Prior exam 12/11/2023, 10/17/2023 and 08/16/2023 FINDINGS: LUNGS: Lungs are hyperinflated as was previously seen. No confluent infiltrate or effusion. Areas of tiny nodularity have not significantly changed on the plain films compared to the prior exams. Patient has been recently followed up with CT. HEART/MEDIASTINUM: Cardiac silhouette normal in size. Mediastinal andhilar contours appear normal. LINES/TUBES: None. BONES: No acute osseous abnormality. IMPRESSION: Hyperinflation of the lungs as was previously seen, unchanged. Mild underlying emphysematous change favored. Areas of tiny nodularity have not significantly changed on the plainfilms compared to the prior exams dating back to 08/16/2023. Nodules have been followed by CT which is more sensitive. THIS IS AN ELECTRONICALLY VERIFIED FINAL REPORT 08/25/2024 8:52 PM - Electronically signed by Haroon Beatty M.D. MJ: ROSALINO Report ID: [id number] Reading Location: [id number] us Rufus Candelario MD IMG XR PROCEDURES Final R esult * CT Chest WO Contrast (08/21/2024 11:28 AM FINISH INSPECTOR) Anatomical Region Laterality Modality Body N/A Computed Tomogra phy 08/26/2024 2:57 PM FINISH INSPECTOR Narrative 08/26/2024 3:21 PM FINISH INSPECTOR EXAM DESCRIPTION: CT CHEST WO CONTRAST REASON FOR STUDY: Hemoptysis Pt states he had a episode about 1 month ago that he coughed up blood one morning. Pt also states that he has a slow growing fungus in his lungs. TECHNIQUE: CT scan of the chest performed without intravenous contrast using helical scanning technique. Reconstructed coronal and sagittal MPR images reviewed. All images stored on PACS. Automated exposure control was used as a dose optimization technique for this examination. COMPARISON: May 01, 2024 FINDINGS: The sensitivity for detection of solid visceral lesions is diminished without the use of intravenous contrast. LUNGS: Poorly defined spiculated nodule in left lung apex (transverse image 16) is unchanged. 11 mm cavitary nodule in lateral left upper lobe (transverse image 45) is unchanged. There are multiple new poorly defined nodules in the right lower lobe with the largest measuring 9 mm (transverse image 56), 7 mm (transverse image 67), and 10 mm (transverse image 70). Pleural-based nodular opacity seen along the lateral right lower lobe on transverse image 121 of the prior study has resolved. Otherwise, fairly extensive bilateral tree-in-bud opacities appear very similar to the prior exam. Multiple waxing and waning nodules such as this are strongly suggestive of an atypical infectious etiology. PLEURA: No effusion. No pneumothorax. MEDIASTINUM/JEET: Small calcified mediastinal and hilar lymph nodes in keeping with old granulomatous disease. Scattered small noncalcified mediastinal lymph nodes are unchanged. HEART: Heart size is normal with no pericardial effusion. CORONARY ARTERY CALCIFICATION: Moderate multivessel coronary artery calcifications. VASCULATURE: Unchanged ectasia of the ascending thoracic aorta measuring up to 4.2 cm in AP diameter. Otherwise, no thoracic aortic aneurysm. AXILLA: No adenopathy. CHEST WALL: No masses. No subcutaneous air. HARDWARE/LINES/TUBES: None. UPPER ABDOMEN: Partially visualized low-density left renal mass is probably a cyst. 4 mm nonobstructing calculus mid right kidney. MUSCULOSKELETAL: Old healed fracture anterolateral right 5th rib. No acute bony abnormality. OTHER: No other significant abnormality. IMPRESSION: Poorly defined spiculated nodule in left lung apex is unchanged. 11 mm cavitary nodule in lateral left upper lobe is unchanged. Multiple new poorly defined nodules in the right lower lobe with the largest measuring 9 mm and 10 mm. Pleural-based nodular opacity seen along lateral right lower lobe on the prior study has resolved. Otherwise, fairly extensive bilateral tree-in-bud opacities appear very similar to the prior exam. Multiple waxing and waning nodules such as this are strongly suggestive of an atypical infectious etiology. Follow-up non-contrast CT chest in 6 months is recommended. No pleural effusion. No adenopathy. Unchanged ectasia of ascending thoracic aorta measuring up to 4.2 cm in AP diameter. Moderate multivessel coronary artery calcifications. Partially visualized low-density left renal mass is probably a cyst. 4 mm nonobstructing calculus mid right kidney. Old healed fracture anterolateral right 5th rib. No acute bony abnormality. THIS IS AN ELECTRONICALLY VERIFIED FINAL REPORT 08/26/2024 3:21 PM - Electronically signed by Balta Browne M.D. RB: ANNELIESE Report ID: [id number] Reading Location: [id number] Procedure Note Balta Browne MD - 08/26/2024 EXAM DESCRIPTION: CT CHEST WO CONTRAST REASON FOR STUDY: Hemoptysis Pt states he had a episode about 1 month ago that he coughed up blood one morning. Pt also states that he has a slow growing fungus in his lungs. TECHNIQUE: CT scan of the chest performed without intravenous contrastusing helical scanning technique. Reconstructed coronal and sagittal MPR images reviewed. All images stored on PACS. Automated exposure control was usedas a dose optimization technique for this examination. COMPARISON: May 01, 2024 FINDINGS: The sensitivity for detection of solid visceral lesions is diminishedwithout the use of intravenous contrast. LUNGS: Poorly defined spiculated nodule in left lung apex (transverseimage 16) is unchanged. 11 mm cavitary nodule in lateral left upper lobe (transverse image 45) is unchanged. There are multiple new poorly defined nodules in the right lower lobe with the largest measuring 9 mm(transverse image 56), 7 mm (transverse image 67), and 10 mm (transverse image 70). Pleural-based nodular opacity seen along the lateral right lower lobe on transverse image 121 of the prior study has resolved. Otherwise, fairly extensive bilateral tree-in-bud opacities appear very similar to the prior exam. Multiple waxing and waning nodules such as this are stronglysuggestive of an atypical infectious etiology. PLEURA: No effusion. No pneumothorax. MEDIASTINUM/JEET: Small calcified mediastinal and hilar lymph nodes in keeping with old granulomatous disease. Scattered small noncalcified mediastinal lymph nodes are unchanged. HEART: Heart size is normal with no pericardial effusion. CORONARY ARTERY CALCIFICATION: Moderate multivessel coronary artery calcifications. VASCULATURE: Unchanged ectasia of the ascending thoracic aorta measuringup to 4.2 cm in AP diameter. Otherwise, no thoracic aortic aneurysm. AXILLA: No adenopathy. CHEST WALL: No masses. No subcutaneous air. HARDWARE/LINES/TUBES: None. UPPER ABDOMEN: Partially visualized low-density left renal mass isprobably a cyst. 4 mm nonobstructing calculus mid right kidney. MUSCULOSKELETAL: Old healed fracture anterolateral right 5th rib. Noacute bony abnormality. OTHER: No other significant abnormality. IMPRESSION: Poorly defined spiculated nodule in left lung apex is unchanged. 11 mm cavitary nodule in lateral left upper lobe is unchanged. Multiple new poorly defined nodules in the right lower lobe with thelargest measuring 9 mm and 10 mm. Pleural-based nodular opacity seen along lateral right lower lobe on the prior study has resolved. Otherwise, fairlyextensive bilateral tree-in-bud opacities appear very similar to the prior exam. Multiple waxing and waning nodules such as this are strongly suggestive ofan atypical infectious etiology. Follow-up non-contrast CT chest in 6 monthsis recommended. No pleural effusion. No adenopathy. Unchanged ectasia of ascending thoracic aorta measuring up to 4.2 cm inAP diameter. Moderate multivessel coronary artery calcifications. Partially visualized low-density left renal mass is probably a cyst. 4 mm nonobstructing calculus mid right kidney. Old healed fracture anterolateral right 5th rib. No acute bonyabnormality. THIS IS AN ELECTRONICALLY VERIFIED FINAL REPORT 08/26/2024 3:21 PM - Electronically signed by Balta Browne M.D. RB: ANNELIESE Report ID: [id number] Reading Location: [id number] us Rufus Candelario MD IMG CT PROCEDURES Final R esult * (ABNORMAL) eGFR (08/19/2024 10:22 AM FINISH INSPECTOR) Pathologist [facility] eGFR 57(L) >=60 mL/min/1. 73 m2 Comment: Interpretive Data Reference Interval Normal >/= 90 mL/min/1.73m2 Mildly decreased* 60 - 89 mL/min/1.73m2 Mildly to moderately decreased 45 - 59 mL/min/1.73m2 Moderately to severely decreased 30 - 44 mL/min/1.73m2 Severely decreased 15 - 29 mL/min/1.73m2 Kidney Failure < 15 mL/min/1.73m2 *Relative to young adult level Estimated glomerular filtration rate is determined by the 2020 CKD-EPI equation recommended by the National Kidney Foundation (A Unifying Approach to GFR Estimation: Recommendations of the NKF-ASK Task Force on Reassessing the Inclusion of Race in Diagnosing Kidney Disease, JASN 2020). The CKD-EPI equation should not be used for patients with unstable renal function and has not been validated in children and those over 70. Current interpretive data was last reviewed 2021. Testing performed by: [facility], [address] [place] [address], [place]., [id number] Blood 08/19/2024 10:2 2 AM FINISH INSPECTOR 08/19/2024 5:43 PM FINISH INSPECTOR us Rufus Candelario MD LAB BLOOD ORDERABLES Patria l Result ARACELI SANDERS ELGIN) 4 [facility] Department [place] [address] * Differential, auto (08/19/2024 10:22 AM FINISH INSPECTOR) Pathologist [facility] Neutrophil abs 3.7 1.5 - 6.5 K/cumm Comment:Testing performed by : [facility], [address] [place] [address]., [id number] Imm gran abs 0.0 0.0 - 0.1 K/cumm [facility] (CAR) Comment:Testing performed by : [facility], [address] [place] [address]., [id number] Lymphocyte abs 1.5 0.8 - 3.3 K/cumm [facility] (CAR) Comment:Testing performed by : [facility], [address] [place] [address]., [id number] Monocyte abs 0.5 0.2 - 0.8 K/cumm [facility] (CAR) Comment:Testing performed by : [facility], [address] [place] [address]., [id number] Eosinophil abs 0.5 0.0 - 0.5 K/cumm [facility] (CAR) Comment:Testing performed by : [facility], [address] [place] [address]., [address] Basophil abs 0.0 0.0 - 0.1 K/cumm [facility] (CAR) Comment:Testing performed by : [facility], [address] [place] [address]., [id number] Neutrophil pct 59.9 % [facility] (CAR) Comment: Interpretive Data Percent cell count reference ranges are not reported, since discordance with absolute values may lead to misinterpretation of CBC data. Current Interpretive Data was last revised on 2018. Testing performed by: [facility], [address] [place] [address]., [address] Imm gran pct 0.2 % [facility] (CRA) Comment: Interpretive Data Percent cell count reference ranges are not reported, since discordance with absolute values may lead to misinterpretation of CBC data. Current Interpretive Data was last revised on 2018. Testing performed by: [facility], [address] [place] [address]., [id number] Lymphocyte pct 24.2 % [facility] (CAR) Comment: Interpretive Data Percent cell count reference ranges are not reported, since discordance with absolute values may lead to misinterpretation of CBC data. Current Interpretive Data was last revised on 2018. Testing performed by: [address], [address] Monocyte pct 7.7 % [facility] (CAR) Comment: Interpretive Data Percent cell count reference ranges are not reported, since discordance with absolute values may lead to misinterpretation of CBC data. Current Interpretive Data was last revised on 2018. Testing performed by: [facility], [address] [place] [address]., [address] Eosinophil pct 7.4 % ROMA SANDERS (CAR) Comment: Interpretive Data Percent cell count reference ranges are not reported, since discordance with absolute values may lead to misinterpretation of CBC data. Current Interpretive Data was last revised on 2018. Testing performed by: [facility], [address] [place] [address]., [address] Basophil pct 0.6 % ARACELI SANDERS (CAR) Comment: Interpretive Data Percent cell count reference ranges are not reported, since discordance with absolute values may lead to misinterpretation of CBC data. Current Interpretive Data was last revised on 2018. Testing performed by: [address], [id number] Blood 08/19/2024 10:2 2 AM FINISH INSPECTOR 08/19/2024 5:19 PM FINISH INSPECTOR us Rufus Candelario MD LAB BLOOD ORDERABLES Patria mane Result ARACELI SANDERS (CAR) 1 [facility] Department [place] [address] * (ABNORMAL) CBC with auto differential (08/19/2024 10:22 AM FINISH INSPECTOR) WBC 6.2 3.8 - 9.9 K/cumm Comment:Testing performed by : [address] [address] Hgb 13.8 13.0 - 17.5 g/dL ARCAELI SANDERS (CAR) Comment:Testing performed by : [address], [address] Hct 44.1 38.9 - 50.3 % ARACELI SANDERS (CAR) Comment:Testing performed by : [address], [address] Plt 335 150 - 400 K/cumm [facility] (CAR) Comment:Testing performed by : [facility], [address] [place] [address], [address] MPV 9.0(L) 9.1 - 12.3 fL [facility] (CAR) Comment:Testing performed by : [facility], [address] [place] [address], [id number] RBC 4.60 4.30 - 5.80 M/cumm [facility] (CAR) Comment:Testing performed by : [facility], [address] [place] [address], [id number] MCV 95.9 81.3 - 96.4 fL [facility] (CAR) Comment:Testing performed by : [address], [address] MCH 30.0 27.1 - 33.3 pg [facility] (CAR) Comment:Testing performed by : [address], [address] MCHC 31.3(L) 32.3 - 35.7 g/dL [facility] (CAR) Comment:Testing performed by : [address], [address] RDW CV 14.6 11.1 - 14.9 % [facility] (CAR) Comment:Testing performed by : [address], [address] RDW SD 50.5(H) 35.7 - 48.1 fL [facility] (CAR) Comment:Testing performed by : [address], [address] NRBC abs 0.00 0.00 - 0.01 K/cumm [facility] (CAR) Comment:Testing performed by : [address], [id number] Blood 08/19/2024 10:2 2 AM FINISH INSPECTOR 08/19/2024 5:19 PM FINISH INSPECTOR us Rufus Candelario MD LAB BLOOD ORDERABLES Patria mane Result [facility] ([place]) 1 [facility] Department [place] [address] * Hepatitis C antibody Blood (08/19/2024 10:22 AM FINISH INSPECTOR) Hep C Ab Nonreactive Nonreactive Comment: Interpretive Data Nonreactive: Antibodies to HCV not detected. Does NOT exclude the possibility of recent exposure to HCV. Equivocal: Equivocal for HCV antibodies. Supplemental molecular testing will be automatically performed to determine infection status in accordance with current CDC screening recommendations. Reactive: Positive for HCV antibodies. This may represent current or past HCV infection. Supplemental molecular testing will be automatically performed to determine current infection status in accordance with current CDC screening recommendations. Interpretive data was last revised on 2019. Testing performed by: [facility], [address] [place] [address]., [id number] Blood 08/19/2024 10:2 2 AM FINISH INSPECTOR 08/19/2024 5:19 PM FINISH INSPECTOR Rufus Candelario MD LAB MICROBIOLOGY - GENERA L ORDERABLES Final Result Performing Organization Address City/[facility]/ZIP Co de Phone Number [facility] ([place]) 1 [facility] Department [place] [place] [address] * Hepatitis B core antibody, total Blood (08/19/2024 10:22 AM FINISH INSPECTOR) Pathologist [facility] Hep B core IgG/IgM Nonreactive Nonreactive Comment:Testing performed by : [facility], [address] [place] [address]., [id number] Blood 08/19/2024 10:2 2 AM FINISH INSPECTOR 08/20/2024 10:00 AM FINISH INSPECTOR Rufus Candelario MD LAB MICROBIOLOGY - GENERA L ORDERABLES Final Result [facility] ([place]) 1 [facility] Department [place] [address] * (ABNORMAL) Vitamin D 25 hydroxy (08/19/2024 10:22 AM FINISH INSPECTOR) Pathologist [facility] Vitamin D 25-OH 22(L) 30 - 80 ng/mL Comment:Testing performed by : [address] [address] Blood 08/19/2024 10:2 2 AM FINISH INSPECTOR 08/19/2024 5:19 PM FINISH INSPECTOR Rufus Candelario MD LAB BLOOD ORDERABLES Patria l Result Performing Organization Address [facility] Co de Phone Number ARACELI SANDERS CAR) [address] [place] [address] * Hepatitis B surface antibody (immune status) Blood (08/19/2024 10:22 AM FINISH INSPECTOR) HBsAb (immune status) Nonreactive Comment: Interpretive Data Nonreactive: This result is consistent with a lack of immunity to Hepatitis B Virus when used in the setting of routine screening. Equivocal: The immune status of the individual should be further assessed, if appropriate, after consideration of clinical status, risk factors, and additional diagnostic information. Reactive: This result is consistent with immunity to Hepatitis B Virus when used in the setting of routine screening. Current interpretive data was last revised on 19. Testing performed by: [address] [address] Blood 08/19/2024 10:2 2 AM FINISH INSPECTOR 08/19/2024 5:19 PM FINISH INSPECTOR Rufus Candelario MD LAB MICROBIOLOGY - GENERA L ORDERABLES Final Result Performing Organization Address City/[facility] Co de Phone Number ARACELI SANDERS (ELGIN) 1 [place] [address] * Hepatitis B Surface Antigen Blood (08/19/2024 10:22 AM FINISH INSPECTOR) HepBsAg Nonreactive Nonreactive Comment:Testing performed by : [address] [address] Blood 08/19/2024 10:2 2 AM FINISH INSPECTOR 08/19/2024 5:19 PM FINISH INSPECTOR Rufus Candelario MD LAB MICROBIOLOGY - GENERA L ORDERABLES Final Result Performing Organization Address [facility]/ZIP Co de Phone Number [facility] ([place]) [address] [place] [address] * Phosphorus (08/19/2024 10:22 AM FINISH INSPECTOR) Phosphorus, pl 3.4 2.3 - 4.5 mg/dL Comment:Testing performed by : [facility], [address] [place] [address], [id number] Blood 08/19/2024 10:2 2 AM FINISH INSPECTOR 08/19/2024 5:19 PM FINISH INSPECTOR Rufus Candelario MD LAB BLOOD ORDERABLES Patria l Result Performing Organization Address [facility] Co de Phone Number [facility] ([place]) [address] [place] [address] * (ABNORMAL) PTH (08/19/2024 10:22 AM FINISH INSPECTOR) PTH 133(H) 15 - 65 pg/mL Comment:Testing performed by : [address], [address] Blood 08/19/2024 10:2 2 AM FINISH INSPECTOR 08/19/2024 5:19 PM FINISH INSPECTOR Rufus Candelario MD LAB BLOOD ORDERABLES Patria l Result Performing Organization Address City/[facility]/ZIP Co de Phone Number [facility] ([place]) 1 [facility] [place] [address] * Magnesium (08/19/2024 10:22 AM FINISH INSPECTOR) Magnesium 1.9 1.4 - 2.5 mg/dL Comment:Testing performed by : [address] [address] Blood 08/19/2024 10:2 2 AM FINISH INSPECTOR 08/19/2024 5:19 PM FINISH INSPECTOR us Rufus Candelario MD LAB BLOOD ORDERABLES Patria antonietta Result ARACELI SANDERS (CAR) 1 [facility] Department [place] [address] * Lipid panel (08/19/2024 10:22 AM FINISH INSPECTOR) Cholesterol 163 30 - 199 mg/dL Comment: Interpretive Data Ages < or = 19 years Acceptable: <170 mg/dL Borderline high: 170-199 mg/dL High: >or= 200 mg/dL Ages > or = 20 years Desirable: <200 mg/dL Borderline high: 200-239 mg/dL High: >or= 240 mg/dL Literature References: 1. Expert Panel on Integrated Guidelines for Cardiovascular Health and Risk Reduction in Children and Adolescents. Pediatrics 2011;128:S213 2. NCEP Expert Panel. Circulation 2004;110:227 Current Interpretive Data was last revised on 2018. Testing performed by: [facility], [address] [place] [address]., [id number] Triglycerides 77 <=149 mg/dL [facility] (CAR) Comment: Interpretive Data Ages < or = 9 years Acceptable: <75 mg/dL Borderline high: 75-99 mg/dL High: >or= 100 mg/dL Ages 10 to 20 years Acceptable: <90 mg/dL Borderline high: 90-129 mg/dL High: >or= 130 mg/dL Ages > or = 20 years Desirable: <150 mg/dL Borderline high: 150-199 mg/dL High: 200-499 mg/dL Very high: >or= 499 mg/dL Literature References: 1. Expert Panel on Integrated Guidelines for Cardiovascular Health and Risk Reduction in Children and Adolescents. Pediatrics 2011;128:S213 2. NCEP Expert Panel. Circulation 2004;110:227 Current Interpretive Data was last revised on 2018. Testing performed by: [facility], [address] [place] [address]., [id number] HDL 72 >=40 mg/dL [facility] (CAR) Comment: Interpretive Data Ages < or = 19 years Acceptable: >45 mg/dL Borderline low: 40-45 mg/dL Low: <40 mg/dL Ages > or = 20 years Desirable: >or= 60 mg/dL Low: <40 mg/dL Literature References: 1. Expert Panel on Integrated Guidelines for Cardiovascular Health and Risk Reduction in Children and Adolescents. Pediatrics 2011;128:S213 2. NCEP Expert Panel. Circulation 2004;110:227 Current Interpretive Data was last revised on 2018. Testing performed by: [facility], [address] [place] [address]., [id number] LDL, calculated 76 <=129 mg/dL ARACELI SANDERS (CAR) Comment: Interpretive Data Ages < or = 19 years Acceptable: <110 mg/dL Borderline high: 110-129 mg/dL High: >or= 130 mg/dL Ages > or = 20 years Optimal: <100 mg/dL Near optimal: 100-129 mg/dL Borderline high: 130-159 mg/dL High: >160 mg/dL Calculated using the Christian LDL-C estimating equation. This equation was implemented on 2024. Prior to this date LDL-C was estimated using the Friedewald equation. Literature References: 1. Expert Panel on Integrated Guidelines for Cardiovascular Health and Risk Reduction in Children and Adolescents. Pediatrics 2011;128:S213 2. NCEP Expert Panel. Circulation 2004;110:227 3. Christian Andrews et al. MELVIN Cardiol. 2020 February 04;5(5):540-548. doi: 10.1001/jamacardio.2020.0013 Current Interpretive Data was last revised on 2024. Testing performed by: [facility], [address] [place] [address]., [id number] Non-HDL Cholesterol 91 mg/dL ARACELI SANDERS (CAR) Comment: Interpretive Data Ages < or = 19 years Acceptable: <120 mg/dL Borderline high: 120-144 mg/dL High: >145 mg/dL Ages > or = 20 years When triglycerides are >200 mg/dL, Non-HDL cholesterol is a secondary target of therapy with treatment goals that are 30 mg/dL greater than the LDL cholesterol target. Literature References: 1. Expert Panel on Integrated Guidelines for Cardiovascular Health and Risk Reduction in Children and Adolescents. Pediatrics 2011;128:S213 2. NCEP Expert Panel. Circulation 2004;110:227 Current Interpretive Data was last revised on 2018. Testing performed by: [facility], [address] [place] [address]., [id number] Chol/HDL ratio 2 [facility] (CAR) Comment:Testing performed by : [address] [address] Blood 08/19/2024 10:2 2 AM FINISH INSPECTOR 08/19/2024 5:19 PM FINISH INSPECTOR us Rufus Candelario MD LAB BLOOD ORDERABLES Patria mane Result ARACELI SANDERS (ELGIN) 1 [facility] Department [place] [address] * (ABNORMAL) Comprehensive metabolic panel (08/19/2024 10:22 AM FINISH INSPECTOR) Sodium 142 135 - 145 mmol/L Comment:Testing performed by : [address], [address] Potassium, pl 3.5 3.3 - 4.9 mmol/L [facility] (CAR) Comment:Testing performed by : [address], [address] Chloride 104 97 - 110 mmol/L [facility] (CAR) Comment:Testing performed by : [address], [address] CO2 25 22 - 32 mmol/L [facility] (CAR) Comment:Testing performed by : [address], [address] Anion gap 13 2 - 15 mmol/L [facility] (CAR) Comment:Testing performed by : [address], [address] BUN 16 6 - 25 mg/dL [facility] (CAR) Comment:Testing performed by : [address], [address] Creatinine 1.29 0.80 - 1.30 mg/dL [facility] (CAR) Comment:Testing performed by : [address], [address] Glucose 116 70 - 199 mg/dL [facility] (CAR) Comment: Interpretive Data Fasting glucose >/= 126 mg/dl is diagnostic for diabetes. Fasting is defined as no caloric intake for at least 8 hours. Fasting glucose between 100 mg/dl to 125 mg/dl is diagnostic of prediabetes. In a patient with classic symptoms of hyperglycemia or hyperglycemic crisis, a random glucose >/= 200 mg/dl is diagnostic for diabetes. In the absence of unequivocal hyperglycemia, results should be confirmed by repeat testing. The classification and Diagnosis of Diabetes Diabetes Care 202; 46: S19-S40. Current interpretive data was last revised 2022. Testing performed by: [facility], [address] [place] [address], [address] Calcium 8.6 8.5 - 10.3 mg/dL [facility] (CAR) Comment:Testing performed by : [address], [address] Bilirubin, total 0.4 0.1 - 1.2 mg/dL [facility] (CAR) Comment:Testing performed by : [address], [address] Protein, pl 6.8 6.5 - 8.5 g/dL [facility] (CAR) Comment:Testing performed by : [address], [address] Albumin 3.9 3.5 - 5.0 g/dL [facility] (CAR) Comment:Testing performed by : [address], [address] Alk phos 133(H) 40 - 130 Units/L [facility] (CAR) Comment:Testing performed by : [address], [address] ALT 11 7 - 55 Units/L [facility] (CAR) Comment:Testing performed by : [address], [address] AST 24 10 - 50 Units/L [facility] (CAR) Comment:Testing performed by : [address], [address] Blood 08/19/2024 10:2 2 AM FINISH INSPECTOR 08/19/2024 5:19 PM FINISH INSPECTOR us Rufus Candelario MD LAB BLOOD ORDERABLES Patria mane Result [facility] (CAR) 1 [facility] Department [place] [address] * (ABNORMAL) Alkaline phosphatase, isoenzymes (08/19/2024 10:18 AM FINISH INSPECTOR) Alk phos 136(H) 40 - 129 Units/L [place] [facility] Comment:Testing performed by : [facility], [address] [place] [address], [address] Alk phos isoenzymes Not Reported [facility] (CAR) Comment:Testing performed by : [facility], [address] [place] [address], [address] Alk phos, liver 1 % 47.9 27.8 - 76.3 % [facility] (CAR) Comment:Testing performed by : [address], [address] Alk phos, liver 1 65.1 16.2 - 70.2 IUnits/L [facility] (CAR) Comment:Testing performed by : [address], [address] Alk phos, liver 2 % 4.6 0.0 - 8.0 % [facility] (CAR) Comment:Testing performed by : [address], [address] Alk phos, liver 2 6.3(H) 0.0 - 5.8 IUnits/L [facility] (CAR) Comment:Testing performed by : [address], [address] Bone % 44.2 19.1 - 67.7 % [facility] (CAR) Comment:Testing performed by : [address], [address] Bone 60.1(H) 12.1 - 42.7 IUnits/L [facility] (CAR) Comment:Testing performed by : [address], [address] Intestine % 3.3 0.0 - 20.6 % [facility] (CAR) Comment:Testing performed by : [address], [address] Intestine 4.5 0.0 - 11.0 IUnits/L [facility] (CAR) Comment:Testing performed by : [facility] [address] [place] [address]., [address] Alk phos, placental Not Present Not present ARACELI SANDERS (CAR) Comment: Test Performed by: [address] [address] Car Builder: Natalie Flynn Ph.D.; CLIA# [id number] Testing performed by: [facility], [address] [place] [address]., [address] Blood 08/19/2024 10:1 8 AM FINISH INSPECTOR 08/20/2024 7:28 AM FINISH INSPECTOR us Rufus Candelario MD LAB BLOOD ORDERABLES Patria mane Result ARACELI SANDERS (CAR) 1 [facility] Department [place] [address] [place] [facility] from Last [address] [facility] MEDICARE Advance Directives For more information, please contact: [phone] * Full Code (Latest Code Status on File) Date Activated Date Inactivated Comments 12/10/2023 5:44 PM 12/16/2023 10:07 PM * Full Code Date Activated Date Inactivated Comments 10/17/2023 10:30 AM 10/18/2023 5:35 AM Care Teams Jewelry Salesperson Relationship Specialty Start Date End Date Rufus Candelario MD [address] [place] [address] PCP - General Family Medicine 04/15/23
--- OUTSIDE RECORDS SUMMARY | 2024-11-12 23:18 | XMS_ITS | Referral Summary ---
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 Selector Name Role Phone Rufus Candelario MD Primary Care Provider [phone] Encounters Date Type Department Care Team Description 10/14/2024 4:10 PM DISTRIBUTED ENERGY SYSTEMS CONSULTANT - 10/14/2024 11:59 PM DISTRIBUTED ENERGY SYSTEMS CONSULTANT Hospital [facility] [address] [place] [id number] Chronic obstructive pulmonary disease, unspecified COPD type (HCC) Discharge Disposition: Discharge to home or self care 10/14/2024 Telephone [facility] [address]th [place] [address] [place] [address] Andrea Sherman RN 10/14/2024 3:30 PM DISTRIBUTED ENERGY SYSTEMS CONSULTANT - 10/14/2024 11:59 PM DISTRIBUTED ENERGY SYSTEMS CONSULTANT Hospital Encounter [facility] [address] [place] [address] Chronic obstructive pulmonary disease, unspecified COPD type (HCC) Discharge Disposition: Discharge to home or self care 10/14/2024 Orders Only [facility] 8th [place] [address] [place] [address] Andrea Sherman, field worker obstructive pulmonary disease, unspecified COPD type (HCC) (Primary Dx) 10/14/2024 3:30 PM DISTRIBUTED ENERGY SYSTEMS CONSULTANT Office Visit [facility] [address]th [place] [address] [place] [address] Lester Hair MD Chronic obstructive pulmonary disease, unspecified COPD type (HCC) (Primary Dx); Bronchiectasis without complication (HCC); Cavitary lesion of lung; 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; Hypoxemia 08/27/2024 Telephone [facility] [address] [address] Rufus Candelario MD Test Results 08/25/2024 11:00 AM DISTRIBUTED ENERGY SYSTEMS CONSULTANT Office Visit [facility] [address] [address] Rufus Candelario MD Medicare annual wellness visit, subsequent (Primary Dx); Need for hepatitis B screening test; Encounter for hepatitis C screening test for low risk patient; Dyslipidemia; Chronic pain syndrome; Elevated PTHrP level; Centrilobular emphysema (HCC); Stage 3a chronic kidney disease (HCC); Concern about memory 08/24/2024 Telephone [facility] [address] [address] Rufus Candelario MD Test Results 08/21/2024 11:22 AM DISTRIBUTED ENERGY SYSTEMS CONSULTANT - 08/21/2024 11:59 PM DISTRIBUTED ENERGY SYSTEMS CONSULTANT Hospital Encounter [address] [address] Hemoptysis Discharge Disposition: Discharge to home or self care 08/21/2024 11:13 AM DISTRIBUTED ENERGY SYSTEMS CONSULTANT - 08/21/2024 11:59 PM DISTRIBUTED ENERGY SYSTEMS CONSULTANT Hospital Encounter [address] [address] Hemoptysis; Mycobacterium abscessus infection Discharge Disposition: Discharge to home or self care 08/20/[address] [address] Cristy Quick 08/19/2024 10:20 AM DISTRIBUTED ENERGY SYSTEMS CONSULTANT Lab [facility] [address] [place] [address] Dyslipidemia; Encounter for hepatitis C screening test for low risk patient; Need for hepatitis B screening test; Hypocalcemia 08/18/2024 Telephone [facility] [address] [address] Rufus Candelario MD Lab Orders from Last 3 Months Allergies No known active allergies Medications cyanocobalamin, vitamin B-12, (VITAMIN B-12 ORAL) Take by mouth daily Active albuterol HFA (Ventolin HFA) 90 mcg/actuation inhaler Inhale 1 puff every 6 (six) hours as needed for wheezing 3 each 04/15/20 23 Active naloxone (NARCAN) 4 mg/actuation [...] inhaler Inhale 1 puff daily 90 each 10/09/19 24 Active gabapentin (NEURONTIN) 300 mg [...] 09/08/2024 Assessment & Plan (09/08/2024 4:08 PM DISTRIBUTED ENERGY SYSTEMS CONSULTANT): Patient reports some concerns about memory, especially short-term Often things will come back to home, though can take extra time to find things Able to drive and does not get lost, able to manage finances 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 Will continue to monitor Drug-induced nausea [...] 12/11/2023 Assessment & Plan (12/12/2023 1:21 PM DISTRIBUTED ENERGY SYSTEMS CONSULTANT): -continue airway clearance with hypertonic saline twice daily and flutter valve Assessment & Plan (12/11/2023 12:39 PM DISTRIBUTED ENERGY SYSTEMS CONSULTANT): -continue airway clearance with hypertonic saline twice [...] today) Assessment & Plan (12/12/2023 1:20 PM DISTRIBUTED ENERGY SYSTEMS CONSULTANT): -diagnosed 10/2023 on bronchoscopy, nodular disease w/ [...] omadacycline Assessment & Plan (12/11/2023 12:36 PM DISTRIBUTED ENERGY SYSTEMS CONSULTANT): -diagnosed 10/2023 on bronchoscopy, nodular disease w/ [...] 12/10/2023 Assessment & Plan (09/08/2024 4:07 PM DISTRIBUTED ENERGY SYSTEMS CONSULTANT): Stable, has chronic pain, multiple sites, generally well controlled with current medications Patient unable to bend over to do work, has pain with walking Current doses no longer providing significant relief Patient is strictly medications, no risk for abuse Will increase oxycodone to 20 mg q.6 hours p.r.n. Assessment & Plan (12/10/2023 6:36 PM DISTRIBUTED ENERGY SYSTEMS CONSULTANT): - cont home oxy, duloxetine, gabapentin - pending renal function, may want to dose reduce gabapentin - stool softeners PRN Gout 12/10/2023 Assessment & Plan (02/11/2024 4:05 PM CDT): Stable, well controlled, no major flares Continue allopurinol 100 mg daily Assessment & Plan (12/10/2023 6:35 PM DISTRIBUTED ENERGY SYSTEMS CONSULTANT): - allopurinol CKD (chronic kidney disease) 12/10/2023 Assessment & Plan (09/08/2024 4:07 PM DISTRIBUTED ENERGY SYSTEMS CONSULTANT): Last EGFR was 54, PTH mildly elevated normal serum calcium, will continue to avoid nephrotoxic medications; focused with the appropriate blood pressure control If advancement of disease, may benefit from SGLT2 inhibitor Assessment & Plan (12/16/2023 11:25 AM CDT): -monitor renal function, renally dose meds -elevation in creatinine to 1.9 12/10. Unlikely due to antibiotics which were just started, but will monitor. Cr currently stable and at baseline Assessment & Plan (12/12/2023 1:21 PM DISTRIBUTED ENERGY SYSTEMS CONSULTANT): -monitor renal function, renally dose meds -elevation in creatinine to 1.9 12/10. Unlikely due to antibiotics which were just started, but will monitor. Agree with IV hydration Assessment & Plan (12/11/2023 12:37 PM DISTRIBUTED ENERGY SYSTEMS CONSULTANT): -monitor renal function, renally dose meds Assessment & Plan (12/14/2023 11:54 AM DISTRIBUTED ENERGY SYSTEMS CONSULTANT): Cr 1.55 outpatient, presumably representing CKD3. 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 - RPP + rhino/entero virus - CXR [...] 04/15/2023 Assessment & Plan (09/08/2024 4:07 PM DISTRIBUTED ENERGY SYSTEMS CONSULTANT): Stable, patient reports it takes less to [...] required Assessment & Plan (12/13/2023 4:45 PM DISTRIBUTED ENERGY SYSTEMS CONSULTANT): -Continue home Trelegy daily and albuterol prn Assessment & Plan (12/12/2023 1:20 PM DISTRIBUTED ENERGY SYSTEMS CONSULTANT): -Continue home Trelegy daily and albuterol prn Assessment & Plan (12/11/2023 12:36 PM DISTRIBUTED ENERGY SYSTEMS CONSULTANT): Continue home Trelegy and albuterol prn Assessment & Plan (12/11/2023 10:25 AM DISTRIBUTED ENERGY SYSTEMS CONSULTANT): COPD w/ severe airflow limitation and lower [...] 08/10/2018 Assessment & Plan (09/08/2024 4:06 PM DISTRIBUTED ENERGY SYSTEMS CONSULTANT): Stable, well controlled Continue rosuvastatin 5 mg daily Assessment & Plan (02/11/2024 4:05 PM CDT): Stable, well controlled, LDL goal Continue Crestor 5 mg daily Assessment & Plan (12/15/2023 7:14 AM CDT): - Continue home statin Assessment & Plan (07/22/2023 12:44 PM CDT): Stable, follow-up with lipid panel; continue Crestor 5 mg daily; encourage low- fat high-fiber diet Immunizations Name Administration Dates Next Due Influenza, [...] valent, Original/omicron Ba.1 07/30/2024 ZOSTER Recombinant 07/14/2019,05/12/2019 Social History Tobacco Use Types Packs/Day Years [...] on file Sexual Orientation Not on file Last Filed Vital Signs Vital Sign Reading Time Taken Comments Blood Pressure 150/68 10/14/2024 3:21 PM DISTRIBUTED ENERGY SYSTEMS CONSULTANT Pulse 107 10/14/2024 3:21 PM DISTRIBUTED ENERGY SYSTEMS CONSULTANT Temperature 37.1 C (98.8 F) 10/14/2024 3:21 PM DISTRIBUTED ENERGY SYSTEMS CONSULTANT Respiratory Rate 18 10/14/2024 3:21 PM DISTRIBUTED ENERGY SYSTEMS CONSULTANT Oxygen Saturation 84% 10/14/2024 3:21 PM DISTRIBUTED ENERGY SYSTEMS CONSULTANT Inhaled Oxygen Concentration - - Weight 88 kg (194 lb) 10/14/2024 3:21 PM DISTRIBUTED ENERGY SYSTEMS CONSULTANT Height 182.9 cm (6') 10/14/2024 3:21 PM DISTRIBUTED ENERGY SYSTEMS CONSULTANT Body Mass Index 26.31 10/14/2024 3:21 PM DISTRIBUTED ENERGY SYSTEMS CONSULTANT Plan of Treatment Not on file Procedures Procedure Name Priority Date/Time Associated Diagnosis Comments XR CHEST PA LATERAL 2 VIEWS Schedule Routine, Read Routine (OP Routine) 10/14/2024 4:16 PM DISTRIBUTED ENERGY SYSTEMS CONSULTANT Chronic obstructive pulmonary disease, unspecified COPD type (HCC) PULMONARY FUNCTION TEST (PFT) Routine 10/14/2024 4:01 PM DISTRIBUTED ENERGY SYSTEMS CONSULTANT Chronic obstructive pulmonary disease, unspecified COPD type (HCC) XR CHEST PA LATERAL 2 VIEWS Schedule Routine, Read Routine (OP Routine) 08/21/2024 11:39 AM DISTRIBUTED ENERGY SYSTEMS CONSULTANT Hemoptysis CT CHEST WO CONTRAST Schedule Routine, Read Routine (OP Routine) 08/21/2024 11:28 AM DISTRIBUTED ENERGY SYSTEMS CONSULTANT Hemoptysis Mycobacterium abscessus infection EGFR Routine 08/19/2024 10:22 AM DISTRIBUTED ENERGY SYSTEMS CONSULTANT Hypocalcemia DIFFERENTIAL AUTO Routine 08/19/2024 10: 22 AM DISTRIBUTED ENERGY SYSTEMS CONSULTANT Dyslipidemia COMPREHENSIVE METABOLIC PANEL Routine 08/19/2024 10:22 AM DISTRIBUTED ENERGY SYSTEMS CONSULTANT Hypocalcemia PTH Routine 08/19/2024 10:22 AM DISTRIBUTED ENERGY SYSTEMS CONSULTANT Hypocalcemia PHOSPHORUS Routine 08/19/2024 10:22 AM DISTRIBUTED ENERGY SYSTEMS CONSULTANT Hypocalcemia MAGNESIUM Routine 08/19/2024 10:22 AM DISTRIBUTED ENERGY SYSTEMS CONSULTANT Hypocalcemia VITAMIN D 25 HYDROXY Routine 08/19/2024 10:22 AM DISTRIBUTED ENERGY SYSTEMS CONSULTANT Hypocalcemia LIPID PANEL Routine 08/19/2024 10:22 AM DISTRIBUTED ENERGY SYSTEMS CONSULTANT Dyslipidemia CBC WITH AUTO DIFFERENTIAL Routine 08/19/2024 10:22 AM DISTRIBUTED ENERGY SYSTEMS CONSULTANT Dyslipidemia HEPATITIS B SURFACE ANTIGEN Routine 08/19/2024 10:22 AM DISTRIBUTED ENERGY SYSTEMS CONSULTANT Need for hepatitis B screening test HEPATITIS B CORE ANTIBODY, TOTAL Routine 08/19/2024 10:22 AM DISTRIBUTED ENERGY SYSTEMS CONSULTANT Need for hepatitis B screening test HEPATITIS B SURFACE ANTIBODY (IMMUNE STATUS) Routine 08/19/2024 10:22 AM DISTRIBUTED ENERGY SYSTEMS CONSULTANT Need for hepatitis B screening test HEPATITIS C ANTIBODY Routine 08/19/2024 10:22 AM DISTRIBUTED ENERGY SYSTEMS CONSULTANT Encounter for hepatitis C screening test for low risk patient ALKALINE PHOSPHATASE, ISOENZYMES Routine 08/19/2024 10:18 AM DISTRIBUTED ENERGY SYSTEMS CONSULTANT from Last 3 Months Results * X-ray chest 2 views (10/14/2024 4:16 PM DISTRIBUTED ENERGY SYSTEMS CONSULTANT) Anatomical Region Laterality Modality Body, Chest N/A Computed Radiogr aphy 10/14/2024 4:59 PM DISTRIBUTED ENERGY SYSTEMS CONSULTANT Impressions 10/14/2024 5:00 PM DISTRIBUTED ENERGY SYSTEMS CONSULTANT The current study is compared with the [...] agrees with it. Electronically signed by: Haroon aGrcia M.D. Narrative 10/14/2024 5:00 PM DISTRIBUTED ENERGY SYSTEMS CONSULTANT EXAMINATION: 2 view chest radiograph Procedure Note [...] Lab- CAM-8D; Oxygen Assessment Titration (10/14/2024 4:01PM DISTRIBUTED ENERGY SYSTEMS CONSULTANT) Anatomical Region Laterality Modality PFT Narrative 10/15/2024 5:16 PM DISTRIBUTED ENERGY SYSTEMS CONSULTANT Table formatting from the original result was not included. [facility] Division of Pulmonary & Critical Care Medicine [address] [place] [address]; [place] [address]; [place] [id number]; [phone] Pulmonary Function Laboratory Pulmonary Stress Test Simple/Oxygen [...] 2 4 8 89 119 4 5 8/15/8 88/90 113/119 4 6 min 0 sec 8 89 122 5 Recovery: 1 8 90 116 5 134/76 3 8 92 110 3 *Som rate of perceived exertion (1-10 dyspnea scale) Reji, CHEST 2003; 123:1408 Walk Test Summary: Six Minute Walk Distance: 850 ft Six-minute Walk Work [distance (m) x body wt (kg)]: 23785 kg.m (normal >60,000kg.m) Oxygen required to maintain [...] PA Lateral 2 Views (08/21/2024 11:39 AM DISTRIBUTED ENERGY SYSTEMS CONSULTANT) Anatomical Region Laterality Modality Body, Chest N/A Computed Radiogr aphy 08/25/2024 8:44 PM DISTRIBUTED ENERGY SYSTEMS CONSULTANT Narrative 08/25/2024 8:52 PM DISTRIBUTED ENERGY SYSTEMS CONSULTANT EXAM DESCRIPTION: XR CHEST PA LATERAL 2 [...] Haroon Beatty M.D. MJ: ROSALINO Report ID: [id number] Reading Location: [id number] Procedure Note Haroon Beatty MD - 08/25/2024 [...] Haroon Beatty M.D. MJ: ROSALINO Report ID: [id number] Reading Location: [place] [address] us Rufus Candelario MD IMG XR PROCEDURES Final R esult * CT Chest WO Contrast (08/21/2024 11:28 AM DISTRIBUTED ENERGY SYSTEMS CONSULTANT) Anatomical Region Laterality Modality Body N/A Computed Tomogra phy 08/26/2024 2:57 PM DISTRIBUTED ENERGY SYSTEMS CONSULTANT Narrative 08/26/2024 3:21 PM DISTRIBUTED ENERGY SYSTEMS CONSULTANT EXAM DESCRIPTION: CT CHEST WO CONTRAST REASON [...] Balta Browne M.D. RB: ANNELIESE Report ID: [id number] Reading Location: [id number] Procedure Note Balta Browne MD - 08/26/2024 [...] Balta Browne M.D. RB: ANNELIESE Report ID: [id number] Reading Location: [place] [address] Rufus Candelario MD IMG CT PROCEDURES Final R esult * (ABNORMAL) eGFR (08/19/2024 10:22 AM DISTRIBUTED ENERGY SYSTEMS CONSULTANT) eGFR 57(L) >=60 mL/min/1. 73 m2 Comment: [...] of Race in Diagnosing Kidney Disease, JASN 202). The CKD-EPI equation should not be used for patients with unstable renal function and has not been validated in children and those over 70. Current interpretive data was last reviewed 2021. Testing performed by: [facility], [address] [place] [address]., [id number] Blood 08/19/2024 10:2 2 AM DISTRIBUTED ENERGY SYSTEMS CONSULTANT 08/19/2024 5:43 PM DISTRIBUTED ENERGY SYSTEMS CONSULTANT us Rufus Candelario MD LAB BLOOD ORDERABLES Patria mane Result [facility] ([place]) [facility] [place] [address] * Differential, auto (08/19/2024 10:22 AM DISTRIBUTED ENERGY SYSTEMS CONSULTANT) Neutrophil abs 3.7 1.5 - 6.5 K/cumm Comment:Testing performed by : [facility], [address] [place] [address]., [address] Imm gran abs 0.0 0.0 - 0.1 K/cumm [facility] ([facility]) Comment:Testing performed by : [facility], [address] [place] [address]., [id number] Lymphocyte abs 1.5 0.8 - 3.3 K/cumm [facility] ([facility]) Comment:Testing performed by : [address] [address] Monocyte abs 0.5 0.2 - 0.8 K/cumm [facility] ([facility]) Comment:Testing performed by : [address] [address] Eosinophil abs 0.5 0.0 - 0.5 K/cumm [facility] ([facility]) Comment:Testing performed by : [address] [address] Basophil abs 0.0 0.0 - 0.1 K/cumm [facility] ([facility]) Comment:Testing performed by : [facility], [address], [place]., [address] Neutrophil pct 59.9 % [facility] ([facility]) Comment: Interpretive Data Percent cell count reference ranges are not reported, since discordance with absolute values may lead to misinterpretation of CBC data. Current Interpretive Data was last revised on 2018. Testing performed by: [facility], [address] [place] [address]., [address] Imm gran pct 0.2 % [facility] ([facility]) Comment: Interpretive Data Percent cell count reference ranges are not reported, since discordance with absolute values may lead to misinterpretation of CBC data. Current Interpretive Data was last revised on 2018. Testing performed by: [facility], [address] [place] [address]., [address] Lymphocyte pct 24.2 % [facility] ([facility]) Comment: Interpretive Data Percent cell count reference ranges are not reported, since discordance with absolute values may lead to misinterpretation of CBC data. Current Interpretive Data was last revised on 2018. Testing performed by: [address] [address] Monocyte pct 7.7 % [facility] ([facility]) Comment: Interpretive Data Percent cell count reference ranges are not reported, since discordance with absolute values may lead to misinterpretation of CBC data. Current Interpretive Data was last revised on 2018. Testing performed by: [facility], [address] [place] [address]., [address] Eosinophil pct 7.4 % [facility] ([facility]) Comment: Interpretive Data Percent cell count reference ranges are not reported, since discordance with absolute values may lead to misinterpretation of CBC data. Current Interpretive Data was last revised on 2018. Testing performed by: [address] [address] Basophil pct 0.6 % [facility] ([facility]) Comment: Interpretive Data Percent cell count reference ranges are not reported, since discordance with absolute values may lead to misinterpretation of CBC data. Current Interpretive Data was last revised on 2018. Testing performed by: [address] [address] Blood 08/19/2024 10:2 2 AM DISTRIBUTED ENERGY SYSTEMS CONSULTANT 08/19/2024 5:19 PM DISTRIBUTED ENERGY SYSTEMS CONSULTANT us Rufus Candelario MD LAB BLOOD ORDERABLES Patria antonietta Result [facility] ([facility]) [facility] [place] [address] * (ABNORMAL) CBC with auto differential (08/19/2024 10:22 AM DISTRIBUTED ENERGY SYSTEMS CONSULTANT) WBC 6.2 3.8 - 9.9 K/cumm Comment:Testing performed by : [facility], [address] [place] [address], [address] Hgb 13.8 13.0 - 17.5 g/dL [facility] ([facility]) Comment:Testing performed by : [address], [address] Hct 44.1 38.9 - 50.3 % [facility] ([facility]) Comment:Testing performed by : [address], [address] Plt 335 150 - 400 K/cumm [facility] ([facility]) Comment:Testing performed by : [address], [address] MPV 9.0(L) 9.1 - 12.3 fL [facility] ([facility]) Comment:Testing performed by : [address], [address] RBC 4.60 4.30 - 5.80 M/cumm [facility] ([facility]) Comment:Testing performed by : [address], [address] MCV 95.9 81.3 - 96.4 fL [facility] ([facility]) Comment:Testing performed by : [address], [address] MCH 30.0 27.1 - 33.3 pg [facility] ([facility]) Comment:Testing performed by : [address], [address] MCHC 31.3(L) 32.3 - 35.7 g/dL [facility] ([facility]) Comment:Testing performed by : [address], [address] RDW CV 14.6 11.1 - 14.9 % [facility] ([place]) Comment:Testing performed by : [facility], [address] [place] [address], [address] RDW SD 50.5(H) 35.7 - 48.1 fL [facility] ([facility]) Comment:Testing performed by : [facility], [address] [place] [address], [address] NRBC abs 0.00 0.00 - 0.01 K/cumm [facility] ([facility]) Comment:Testing performed by : [facility], [address] [place] [address], [address] Blood 08/19/2024 10:2 2 AM DISTRIBUTED ENERGY SYSTEMS CONSULTANT 08/19/2024 5:19 PM DISTRIBUTED ENERGY SYSTEMS CONSULTANT Rufus Candelario MD LAB BLOOD ORDERABLES Patria l Result Performing Organization Address City/[facility]/ZIP Co de Phone Number [facility] ([place]) 1 [facility] [place] [address] * Hepatitis C antibody Blood (08/19/2024 10:22 AM DISTRIBUTED ENERGY SYSTEMS CONSULTANT) Hep C Ab Nonreactive Nonreactive Comment: Interpretive [...] last revised on 2019. Testing performed by: [facility], [address] [place] [address], [id number] Blood 08/19/2024 10:2 2 AM DISTRIBUTED ENERGY SYSTEMS CONSULTANT 08/19/2024 5:19 PM DISTRIBUTED ENERGY SYSTEMS CONSULTANT Rufus Candelario MD LAB MICROBIOLOGY - GENERA L ORDERABLES Final Result Performing Organization Address City/[facility]/ZIP Co de Phone Number [facility] ([place]) 1 [facility] [place] [address] * Hepatitis B core antibody, total Blood (08/19/2024 10:22 AM DISTRIBUTED ENERGY SYSTEMS CONSULTANT) Hep B core IgG/IgM Nonreactive Nonreactive Comment:Testing performed by : [facility], [address] [place] [address], [id number] Blood 08/19/2024 10:2 2 AM DISTRIBUTED ENERGY SYSTEMS CONSULTANT 08/20/2024 10:00 AM DISTRIBUTED ENERGY SYSTEMS CONSULTANT Rufus Candelario MD LAB MICROBIOLOGY - GENERA L ORDERABLES Final Result [facility] ([place]) 1 [facility] [place] [address] * (ABNORMAL) Vitamin D 25 hydroxy (08/19/2024 10:22 AM DISTRIBUTED ENERGY SYSTEMS CONSULTANT) Pathologist [facility] Vitamin D 25-OH 22(L) 30 - 80 ng/mL Comment:Testing performed by : [facility], [address] [place] [address], [id number] Blood 08/19/2024 10:2 2 AM DISTRIBUTED ENERGY SYSTEMS CONSULTANT 08/19/2024 5:19 PM DISTRIBUTED ENERGY SYSTEMS CONSULTANT Rufus Candelario MD LAB BLOOD ORDERABLES Patria l Result [facility] ([place]) 1 [facility] [place] [address] * Hepatitis B surface antibody (immune status) Blood (08/19/2024 10:22 AM DISTRIBUTED ENERGY SYSTEMS CONSULTANT) HBsAb (immune status) Nonreactive Comment: Interpretive Data [...] last revised on 19. Testing performed by: [facility], [address] [place] [address]., [id number] Blood 08/19/2024 10:2 2 AM DISTRIBUTED ENERGY SYSTEMS CONSULTANT 08/19/2024 5:19 PM DISTRIBUTED ENERGY SYSTEMS CONSULTANT Rufus Candelario MD LAB MICROBIOLOGY - GENERA L ORDERABLES Final Result [facility] ([place]) 1 [facility] [place] [address] * Hepatitis B Surface Antigen Blood (08/19/2024 10:22 AM DISTRIBUTED ENERGY SYSTEMS CONSULTANT) Pathologist [facility] HepBsAg Nonreactive Nonreactive Comment:Testing performed by : [facility], [address] [place] [address], [id number] Blood 08/19/2024 10:2 2 AM DISTRIBUTED ENERGY SYSTEMS CONSULTANT 08/19/2024 5:19 PM DISTRIBUTED ENERGY SYSTEMS CONSULTANT Rufus Candelario MD LAB MICROBIOLOGY - GENERA L ORDERABLES Final Result Performing Organization Address [facility]/ZIP Co de Phone Number [facility] ([place]) [address] [place] [address] * Phosphorus (08/19/2024 10:22 AM DISTRIBUTED ENERGY SYSTEMS CONSULTANT) Pathologist [facility] Phosphorus, pl 3.4 2.3 - 4.5 mg/dL Comment:Testing performed by : [address] [address] Blood 08/19/2024 10:2 2 AM DISTRIBUTED ENERGY SYSTEMS CONSULTANT 08/19/2024 5:19 PM DISTRIBUTED ENERGY SYSTEMS CONSULTANT Rufus Candelario MD LAB BLOOD ORDERABLES Patria l Result [facility] ([place]) 1 [facility] [place] [address] * (ABNORMAL) PTH (08/19/2024 10:22 AM DISTRIBUTED ENERGY SYSTEMS CONSULTANT) Pathologist [facility] PTH 133(H) 15 - 65 pg/mL Comment:Testing performed by : [address] [address] Blood 08/19/2024 10:2 2 AM DISTRIBUTED ENERGY SYSTEMS CONSULTANT 08/19/2024 5:19 PM DISTRIBUTED ENERGY SYSTEMS CONSULTANT Rufus Candelario MD LAB BLOOD ORDERABLES Patria l Result [facility] ([place]) 1 [facility] [place] [address] * Magnesium (08/19/2024 10:22 AM DISTRIBUTED ENERGY SYSTEMS CONSULTANT) Magnesium 1.9 1.4 - 2.5 mg/dL Comment:Testing performed by : [address], [address] Blood 08/19/2024 10:2 2 AM DISTRIBUTED ENERGY SYSTEMS CONSULTANT 08/19/2024 5:19 PM DISTRIBUTED ENERGY SYSTEMS CONSULTANT Rufus Candelario MD LAB BLOOD ORDERABLES Patria l Result Performing Organization Address City/[facility]/ZIP Co de Phone Number [facility] 1 [facility] [place] [address] * Lipid panel (08/19/2024 10:22 AM DISTRIBUTED ENERGY SYSTEMS CONSULTANT) Cholesterol 163 30 - 199 mg/dL Comment: [...] last revised on 2018. Testing performed by: [facility], [address] [place] [address]., [id number] Triglycerides 77 <=149 mg/dL [facility] ([facility]) Comment: Interpretive Data Ages < or [...] last revised on 2018. Testing performed by: [facility], [address] [place] [address]., [address] HDL 72 >=40 mg/dL ARACELI [facility] ([facility]) Comment: Interpretive Data Ages < or [...] last revised on 2018. Testing performed by: [facility], [address] [place] [address]., [address] LDL, calculated 76 <=129 mg/dL ARACELI [facility] [...] 3. Christian Andrews et al. MELVIN Cardiol. 2019February 04;5(5):540-548. doi: [email or web address] Current Interpretive Data was last revised on 2024. Testing performed by: [address] [address] Non-HDL Cholesterol 91 mg/dL ARACELI SANDERS (CAR) [...] last revised on 2018. Testing performed by: [address] [address] Chol/HDL ratio 2 ALEXISNE Rohit SANDERS (CAR) Comment:Testing performed by : [address] [address] Blood 08/19/2024 10:2 2 AM DISTRIBUTED ENERGY SYSTEMS CONSULTANT 08/19/2024 5:19 PM DISTRIBUTED ENERGY SYSTEMS CONSULTANT us Rufus Candelario MD LAB BLOOD ORDERABLES Patria mane Result ARACELI [facility]ANDERS ([facility]) 1 [facility] [place] [address] * (ABNORMAL) Comprehensive metabolic panel (08/19/2024 10:22 AM DISTRIBUTED ENERGY SYSTEMS CONSULTANT) Sodium 142 135 - 145 mmol/L Comment:Testing performed by : [address] [address] Potassium, pl 3.5 3.3 - 4.9 mmol/L [facility]ERS ([facility]) Comment:Testing performed by : [address] [address] Chloride 104 97 - 110 mmol/L [facility] ([facility]) Comment:Testing performed by : [facility], [address] [place] [address]., [address] CO2 25 22 - 32 mmol/L [facility] ([facility]) Comment:Testing performed by : [address] [address] Anion gap 13 2 - 15 mmol/L [facility] ([facility]) Comment:Testing performed by : [address], [address] BUN 16 6 - 25 mg/dL [facility] ([facility]) Comment:Testing performed by : [address], [address] Creatinine 1.29 0.80 - 1.30 mg/dL [facility] ([facility]) Comment:Testing performed by : [address], [address] Glucose 116 70 - 199 mg/dL [facility] ([facility]) Comment: Interpretive Data Fasting glucose [...] was last revised 2022. Testing performed by: [facility], [address] [place] [address], [address] Calcium 8.6 8.5 - 10.3 mg/dL [facility] ([facility]) Comment:Testing performed by : [address] [address] Bilirubin, total 0.4 0.1 - 1.2 mg/dL [facility] ([facility]) Comment:Testing performed by : [address] [address] Protein, pl 6.8 6.5 - 8.5 g/dL [facility] ([facility]) Comment:Testing performed by : [address], [address] Albumin 3.9 3.5 - 5.0 g/dL [facility] ([facility]) Comment:Testing performed by : [facility], [address] [place] [address]., [address] Alk phos 133(H) 40 - 130 Units/L [facility] ([facility]) Comment:Testing performed by : [facility], [address] [place] [address], [address] ALT 11 7 - 55 Units/L [facility] ([facility]) Comment:Testing performed by : [facility], [address] [place] [address], [address] AST 24 10 - 50 Units/L [facility] ([facility]) Comment:Testing performed by : [facility], [address] [place] [address], [address] Blood 08/19/2024 10:2 2 AM DISTRIBUTED ENERGY SYSTEMS CONSULTANT 08/19/2024 5:19 PM DISTRIBUTED ENERGY SYSTEMS CONSULTANT Rufus Candelario MD LAB BLOOD ORDERABLES Patria mane Result [facility] ([facility]) 1 [facility] Department [place] [address] * (ABNORMAL) Alkaline phosphatase, isoenzymes (08/19/2024 10:18 AM DISTRIBUTED ENERGY SYSTEMS CONSULTANT) Alk phos 136(H) 40 - 129 Units/L [facility] Comment:Testing performed by : [address], [address] Alk phos isoenzymes Not Reported [facility] ([facility]) Comment:Testing performed by : [address], [address] Alk phos, liver 1 % 47.9 27.8 - 76.3 % [facility] ([facility]) Comment:Testing performed by : [address], [address] Alk phos, liver 1 65.1 16.2 - 70.2 IUnits/L [facility] ([facility]) Comment:Testing performed by : [address], [address] Alk phos, liver 2 % 4.6 0.0 - 8.0 % [facility] ([facility]) Comment:Testing performed by : [facility], [address] [place] [address]., [address] Alk phos, liver 2 6.3(H) 0.0 - 5.8 IUnits/L [facility] ([facility]) Comment:Testing performed by : [facility], [address] [place] [address], [address] Bone % 44.2 19.1 - 67.7 % [facility] ([facility]) Comment:Testing performed by : [facility], [address] [place] [address], [address] Bone 60.1(H) 12.1 - 42.7 IUnits/L [facility] ([facility]) Comment:Testing performed by : [facility], [address] [place] [address], [address] Intestine % 3.3 0.0 - 20.6 % [facility] ([facility]) Comment:Testing performed by : [facility], [address] [place] [address], [address] Intestine 4.5 0.0 - 11.0 IUnits/L [facility] ([facility]) Comment:Testing performed by : [facility], [address] [place] [address], [address] Alk phos, placental Not Present Not present [facility] ([facility]) Comment: Test Performed by: [place] [address] Director Independent: Natalie Flynn Ph.D.; CLIA# [id number] Testing performed by: [address], [address] Blood 08/19/2024 10:1 8 AM DISTRIBUTED ENERGY SYSTEMS CONSULTANT 08/20/2024 7:28 AM DISTRIBUTED ENERGY SYSTEMS CONSULTANT us Rufus Candelario MD LAB BLOOD ORDERABLES Patria mane Result [facility] ([facility]) 1 [facility] [place] [address] [facility] from Last 3 Months Insurance MEDICARE [facility] MEDICARE [facility] Advance Directives For more information, please contact: [phone] * Full Code (Latest Code Status on File) Date Activated Date Inactivated Comments 12/10/2023 5:44 PM 12/16/2023 10:07 PM * Full Code Date Activated Date Inactivated Comments 10/17/2023 10:30 AM 10/18/2023 5:35 AM Care Teams Frozen Food Selector Relationship Specialty Start Date End Date [place]uf[place] [address] PCP - General Family Medicine 04/15/23
--- OUTSIDE RECORDS SUMMARY | 2024-11-12 23:18 | XMS_ITS | Encounter Summary ---
Author Organization [facility] Address [address] [place] [address] Phone Care Team Providers Care Skilled Laborer Name Role Phone Unknown, Notinfile Primary Care Provider Unavail able Rufus Candelario MD Primary Care Provider [phone] Coby Adler RN Unavailable [phone] Encounter Details Date Type Department Care Team (Latest Contact Info) Description 02/02/2019 Orders Only [facility] Scanning, Provider [...] Date/Time Associated Diagnosis Comments SCAN - RADIOLOGY/IMAGING 02/02/2019 documented in this encounter Results * SCAN - RADIOLOGY/IMAGING (02/02/2019) Anatomical Region Laterality Modality Other us Provider [...] COVID: Suspected 12/10/2023 12/10/2023 12/10/2023 8:28 PM PAINT PREPPER Rhino/Enterovirus 12/10/2023 12/10/2023 12/17/2023 3:05 AM CDT documented as of this encounter Care Teams Skilled Laborer Relationship Specialty Start Date End Date Unknown, Notinfile PCP - General 01/24/23 04/14/23 Rufus Candelario MD [address] [place] [address] PCP - General Family Medicine 04/15/23 Coby Adler, RN [address] [address] [facility] Audit Practice Intern 12/17/23 12/17/23 documented as of this encounter
[2024-11-12] MEDS: SODIUM CHLORIDE 0.9% IV 500 ML 999 ML IV CONT (23:23)
[2024-11-12] MEDS: ONDANSETRON INJ 4 MG/2 ML VIAL IV PUSH (23:23)
[2024-11-12] MEDS: ACETAMINOPHEN 500 MG TABLET 1000 MG PO (23:23)
[2024-11-13 00:35] VITALS: BP 116/87; PULSE 93; RESP 16; O2SAT 97
== END 2024-11-13 00:35 | disposition home or self-care (01) ==
PROVIDERS: Emergency Provider Physician Assistant
DX: U07.1 COVID-19 (principal); J44.9 Chronic obstructive pulmonary disease, unspecified; Z99.81 Dependence on supplemental oxygen; I45.10 Unspecified right bundle-branch block; R94.31 Abnormal electrocardiogram [ECG] [EKG]
CPT/HCPCS: 36415; 71045; 80053; 81001; 85025; 93005; 96361; 96374; 99284; A9270; J2405; J7040

== ENCOUNTER 2025-02-23 10:30 | Observation (INO) | payer MEDICARE, SELFPAY ==
[2025-02-23] VITALS (12 sets, daily range): BP systolic 109–177; BP diastolic 60–93; PULSE 71–88; RESP 12–18; TEMP 36.4–36.8; O2SAT 89–98; BMI 24.0
--- NOTE | ~2025-02-23 | XR_ITS ---
EXAMINATION: XR retrograde pyelo w/stent RT DATE: 02/24/2025 08:18 INDICATION: Right internal ureteral stent placement TECHNIQUE: Fluoroscopic images from a right internal ureteral stent placement are submitted for anny rosario 36 seconds of fluoroscopy time. FINDINGS: There is a right double-J internal ureteral stent projecting in expected position, with proximal Butler loop at the level of the renal pelvis and distal loop in the pelvis within the bladder lumen. IMPRESSION: 1. Right internal ureteral stent placement. Please refer to real-time procedural findings for detmary ls. Reviewed, dictated and finalized at location [] IMPRESSION: 1. Right internal ureteral stent placement. Please refer to real-time procedu ral findings for details.
--- NOTE | ~2025-02-23 | CT_ITS ---
CT abdomen pelvis wo con Ordering provider: Uche Haque MD History: 79 years Male with . Right flank pain . Comparison: None. Technique: CT abdomen and pelvis without IV and without oral contrast. Automated exposure control and iterative reconstruction technique were employed. The dose-length product was 375.92 mGy-cm. Findings: VISUALIZED LOWER CHEST: Emphysematous changes. Nodule is seen in the right lower lobe measuring 1.3 x 0.8 cm. 3 months follow-up CT is advised. Tree-in-bud appearance is seen in the left lower lobe with nodularity. Pneumonia cannot be excluded. UPPER ABDOMINAL ORGANS: Liver: Normal. Benign calcifications. Gallbladder: Distended gallbladder. Spleen: Normal. Benign calcifications. Stomach/duodenum: Thickened lower esophagus which may indicate reflux esophagitis. Pancreas: Normal. Adrenals: Normal. Kidneys: left kidney cyst measuring 1.5 x 5.2 cm. Stone in the right upper ureter is seen measuring 5 mm with hydronephrotic changes. 2 stones in the right kidney lower pole measuring 7 mm is seen. PELVIC ORGANS: The bladder is underfilled with thickened wall. BOWEL AND MESENTERY: Colon: No evidence of diverticulitis.. Appendix is not demonstrated. Small Bowel: Normal. No obstruction. Peritoneum/mesentery: No free air or free fluid. No mesenteric lymphadenopathy. RETROPERITONEUM: Mild atheromatous disease of the abdominal aorta. No retroperitoneal lymphadenopat hy. MUSCULOSKELETAL: Superficial soft tissues: The superficial soft tissues are normal. Bones: Age appropriate degenerative changes of the spine. Postoperative changes in the lower lumbar a nadeem. Bilateral sacroiliitis. IMPRESSION: 1. No evidence of appendicitis, diverticulitis or intestinal obstruction. 2. Stone in the right upper ureter with right hydronephrotic changes. Right kidney stones. 3. Left renal cyst. Reviewed, dictated and finalized at location A. IMPRESSION: 1. No evidence of appendicitis, diverticulitis or intestinal obstruction. 2. Stone in the right upper ureter with right hydronephrotic changes. Right ki dney stones. 3. Left renal cyst.
--- NOTE | ~2025-02-23 | XR_ITS ---
EXAM: XR abdomen/kub 1V DATE: 02/23/2025 16:39 HISTORY: Right ureteral calculus . COMPARISON: CT abdomen pelvis, same date. FINDINGS: Bibasilar scar/atelectasis. Increasing gaseous distention of the pylorus. Bowel gas pattern otherwise normal. Large volume of colonic fecal material, which obscures radiographic detail. Multil evel lumbar degenerative disc disease. Lumbar scoliosis. Posterior lumbar fusion hardware. 4 x 6 mm r ounded calcification projecting to the right of L3, likely corresponding to the ureteral calcificatio n in the prior CT. Scattered vascular calcifications. IMPRESSION: Increased gaseous distention of the pylorus, correlate for symptoms of developing abdominal pain. 4 x 6 mm calcification to the right of L3, likely corresponding to the known right ureteral stone. David wel gas and fecal material limit evaluation. The right inferior nephroliths is not confidently visual ized. Reviewed, dictated and finalized at location K. IMPRESSION: Increased gaseous distention of the pylorus, correlate for symptoms of developi ng abdominal pain. 4 x 6 mm calcification to the right of L3, likely corresponding to the known ri ght ureteral stone. Bowel gas and fecal material limit evaluation. The right in ferior nephroliths is not confidently visualized.
--- OUTSIDE RECORDS SUMMARY | 2025-02-23 10:43 | XMS_ITS | Encounter Summary ---
Author Organization [facility] Address [address] [place] [address] Phone Care Team Providers Care Wool Buyer Name Role Phone Unknown, Notinfile Primary Care Provider Unavail Rufus Mack MD Primary Care Provider [phone] Coby Adler RN Unavailable [phone] Encounter Details Date Type Department Care Team [...] COVID: Suspected 12/10/2023 12/10/2023 12/10/2023 8:28 PM CONCRETE BLOCK LAYER Rhino/Enterovirus 12/10/2023 12/10/2023 12/17/2023 3:05 AM CDT documented as of this encounter Care Teams Wool Buyer Relationship Specialty Start Date End Date Unknown, Notinfile PCP - General 01/24/23 04/14/23 Rufus Candelario MD [address] [place] [address] PCP - General Family Medicine 04/15/23 Coby Adler, RN [address] [address] [facility] Outpatient Hygiene Coordinator 12/17/23 12/17/23 documented as of this encounter
--- OUTSIDE RECORDS SUMMARY | 2025-02-23 10:43 | XMS_ITS | Encounter Summary ---
Author Organization [facility] Address [address] [place] [address] Phone Care Team Providers Care Oracle Programmer Analyst Name Role Phone Unknown, Notinfile Primary Care Provider Unavail Rufus Mack MD Primary Care Provider [phone] Coby Adler RN Unavailable [phone] Encounter Details Date Type Department Care Team [...] COVID: Suspected 12/10/2023 12/10/2023 12/10/2023 8:28 PM LINE CLEANER Rhino/Enterovirus 12/10/2023 12/10/2023 12/17/2023 3:05 AM CDT documented as of this encounter Care Teams Oracle Programmer Analyst Relationship Specialty Start Date End Date Unknown, Notinfile PCP - General 01/24/23 04/14/23 Rufus Candelario MD [address] [place] [address] PCP - General Family Medicine 04/15/23 Coby Adler, RN [address] [address] [facility] Outpatient Geospatial Program Management Officer 12/17/23 12/17/23 documented as of this encounter
--- OUTSIDE RECORDS SUMMARY | 2025-02-23 10:43 | XMS_ITS | Referral Summary ---
Author Organization [facility] Address [address] [place] [address] Care Team Providers Care Director Informatics Name Role Phone Rufus Candelario MD Primary Care Provider [phone] Encounters Date Type Department Care Team Description 01/08/2025 Telephone [facility] [address] [facility] 8th [place] [address] Andrea Sherman RN 01/06/2025 1:30 PM CDT Office Visit [facility] [address] [facility] 8th [place] [address] [place] [address] Lester Hair MD Abnormal chest CT (Primary Dx); Chronic obstructive pulmonary disease, unspecified COPD type (HCC); Hypoxemia; Cavitary lesion of lung; 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 01/06/2025 12:17 PM CDT - 01/06/2025 11:59 PM CDT Hospital Encounter [facility] [address] [facility] [address] [place] [address] Chronic obstructive pulmonary disease, unspecified COPD type (HCC) Discharge Disposition: Discharge to home or self care 01/01/2025 Results Follow-Up [facility] [address] [address] Bharati Zamora MD Dexa Axial Skeleton Bone Density 1 or 2 Site 01/01/2025 Results Follow-Up [facility] [address] [address] Bharati Zamora MD Vitamin D 25 hydroxy, Basic metabolic panel, eGFR 12/24/2024 11:55 AM CDT Lab [facility] [address] [place] [address] Secondary hyperparathyroidism; Vitamin D deficiency 12/24/2024 11:52 AM CDT - 12/24/2024 11:59 PM CDT Hospital Encounter [facility] [address] [place] [address] Osteopenia of multiple sites Discharge Disposition: Discharge to home or self care 12/14/2024 Telephone [facility] [address] [facility] 8th [place] [address] [place] [address] Andrea Sherman RN 11/30/2024 11:45 AM SEAM PRESSER [facility] [address] [place] [address] Bharati Zamora MD Secondary hyperparathyroidism (Primary Dx); Vitamin D deficiency; Osteopenia of multiple sites from Last 3 Months Allergies No known active allergies Medications cyanocobalamin, vitamin B-12, (VITAMIN B-12 ORAL) Take by mouth daily Active naloxone (NARCAN) 4 mg/actuation spray,non-aerosol Administer [...] a day 90 capsule 11 12/16/19 24 Active Additional Information Patient not taking.Reported on 01/06/2025 ondansetron ODT (ZOFRAN-ODT) 4 mg disintegrating tabletIndications: Drug-induced nausea and vomiting Take 1 tablet (4 mg total) by mouth every 8 (eight) hours as needed for nausea 20 tablet 12/20/[address] (CYMBALTA) 60 mg capsule Take 1 capsule by mouth once daily 90 capsule 3 06/29/20 24 Active amLODIPine (NORVASC) 10 mg tablet Take 1 tablet by mouth once daily 90 tablet 3 06/29/20 24 Active oxygen Administer 2 L/min into each nostril as needed Active gabapentin (NEURONTIN) 600 mg tablet Take 1 tablet (600 mg total) by mouth 3 (three) times a day 90 tablet 11 11/17/19 25 026 Active Ventolin HFA 90 mcg/actuation inhaler INHALE 1 PUFF BY MOUTH EVERY 6 HOURS NEEDED FOR WHEEZING 18 g 11/25/19 25 Active rosuvastatin (CRESTOR) 5 mg tablet Take 1 tablet (5 mg total) by mouth daily 100 tablet 1 12/15/19 25 Active allopurinoL (ZYLOPRIM) 100 mg tablet Take 1 tablet by mouth once daily 90 tablet 12/29/19 25 Active ergocalciferol (VITAMIN D) 50,000 unit capsule Take 1 capsule (50,000 Units total) by mouth once a week 4 capsule 3 01/02/20 25 026 Active oxyCODONE (ROXICODONE) 20 mg tabletIndications: Pain Take 1 tablet (20 mg total) by mouth every 6 (six) hours as needed for pain 120 tablet 02/13/20 25 025 Active oxyCODONE (ROXICODONE) 20 mg tabletIndications: Pain Take 1 tablet (20 mg total) by mouth every 6 (six) hours as needed for pain 120 tablet 01/14/20 25 025 Discontin ued(Reord er) Active Problems Problem Noted Date Diagnosed Date Chronic respiratory failure with hypoxia 025 Solitary pulmonary nodule 11/30/2024 Essential (primary) hypertension 11/30/2024 Secondary hyperparathyroidism 11/30/2024 Vitamin D deficiency 11/30/2024 Osteopenia of multiple sites 11/30/2024 Concern about memory 09/08/2024 Assessment & Plan (09/08/2024 4:08 PM SEAM PRESSER): Patient reports some concerns about memory, especially short-term Often things will come back to home, though can take extra time to find things Able to drive and does not get lost, able to manage finances Power of health care attorney for Will continue to monitor Drug-induced [...] 12/11/2023 Assessment & Plan (12/12/2023 1:21 PM SEAM PRESSER): -continue airway clearance with hypertonic saline twice daily and flutter valve Assessment & Plan (12/11/2023 12:39 PM SEAM PRESSER): -continue airway clearance with hypertonic saline twice [...] today) Assessment & Plan (12/12/2023 1:20 PM SEAM PRESSER): -diagnosed 10/2023 on bronchoscopy, nodular disease w/ [...] omadacycline Assessment & Plan (12/11/2023 12:36 PM SEAM PRESSER): -diagnosed 10/2023 on bronchoscopy, nodular disease w/ [...] 12/10/2023 Assessment & Plan (09/08/2024 4:07 PM SEAM PRESSER): Stable, has chronic pain, multiple sites, generally well controlled with current medications Patient unable to bend over to do work, has pain with walking Current doses no longer providing significant relief Patient is strictly medications, no risk for abuse Will increase oxycodone to 20 mg q.6 hours p.r.n. Assessment & Plan (12/10/2023 6:36 PM SEAM PRESSER): - cont home oxy, duloxetine, gabapentin - pending renal function, may want to dose reduce gabapentin - stool softeners PRN Gout 12/10/2023 Assessment & Plan (02/11/2024 4:05 PM CDT): Stable, well controlled, no major flares Continue allopurinol 100 mg daily Assessment & Plan (12/10/2023 6:35 PM SEAM PRESSER): - allopurinol CKD (chronic kidney disease) 12/10/2023 Assessment & Plan (09/08/2024 4:07 PM SEAM PRESSER): Last EGFR was 54, PTH mildly elevated [...] baseline Assessment & Plan (12/12/2023 1:21 PM SEAM PRESSER): -monitor renal function, renally dose meds -elevation in creatinine to 1.9 3/6. Unlikely due to antibiotics which were just started, but will monitor. Agree with IV hydration Assessment & Plan (12/11/2023 12:37 PM SEAM PRESSER): -monitor renal function, renally dose meds Assessment & Plan (12/14/2023 11:54 AM SEAM PRESSER): Cr 1.55 outpatient, presumably representing CKD3. - Cr 1.71 > 1.92 > 1.43 > 1.58, ALICE improved with IVF - Hold losartan for now - Renally dose meds, avoid nephrotoxins - requesting RN to assist with records from prior [employer] - Referral to Nephrology at discharge Sore throat 12/10/2023 Assessment & Plan (12/11/2023 10:27 AM SEAM PRESSER): C/o sore throat x 4 days [employer] - RPP + rhino/entero virus - CXR as elsewhere - abx as elsewhere - see COPD Cervical radiculopathy 04/30/2023 Assessment & Plan (07/22/2023 10:03 AM CDT): Continues to have constant pain; has some relief with current medications to improve function -symptoms worse in lower back -with medication able to take chcf and -use every 6 hours (4 tabs [...] 04/15/2023 Assessment & Plan (09/08/2024 4:07 PM SEAM PRESSER): Stable, patient reports it takes less to [...] required Assessment & Plan (12/13/2023 4:45 PM SEAM PRESSER): -Continue home Trelegy daily and albuterol prn Assessment & Plan (12/12/2023 1:20 PM SEAM PRESSER): -Continue home Trelegy daily and albuterol prn Assessment & Plan (12/11/2023 12:36 PM SEAM PRESSER): Continue home Trelegy and albuterol prn Assessment & Plan (12/11/2023 10:25 AM SEAM PRESSER): COPD w/ severe airflow limitation and lower [...] 08/10/2018 Assessment & Plan (09/08/2024 4:06 PM SEAM PRESSER): Stable, well controlled Continue rosuvastatin 5 mg daily Assessment & Plan (02/11/2024 4:05 PM CDT): Stable, well controlled, LDL goal Continue Crestor 5 mg daily Assessment & Plan (12/15/2023 7:14 AM CDT): - Continue home statin Assessment & Plan (07/22/2023 12:44 PM CDT): Stable, follow-up with lipid panel; continue Crestor 5 mg daily; encourage low- fat high-fiber diet Immunizations Immunization Administration Dates Next Due Influenza, Quadrivalent, Hig h Dose, Preservative Free, Intrr 08/02/2023 Influenza, Quadrivalent, Spl it, Intramuscular 06/25/2022,07/20/2020 Influenza, Quadrivalent, Spl it, Preservative Free, Intramuscular [...] Years Used Date Smoking Tobacco: Former Cigarettes Q uit: 01/06/2001 Smokeless Tobacco: Never Tobacco Cessation:Counseling Given: Not Answered AUDIT-C Answer Date Recorded Q1: How often [...] Sign Reading Time Taken Comments Blood Pressure 110/62 01/06/2025 1:02 PM CDT Pulse 92 01/06/2025 1:02 PM CDT Temperature 36.6 C (97.9 F) 01/06/2025 1:02 PM CDT Respiratory Rate 18 01/06/2025 1:02 PM CDT Oxygen Saturation 88% 01/06/2025 1:02 PM CDT Inhaled Oxygen Concentration - - Weight 83.5 kg (184 lb) 01/06/2025 1:02 PM CDT Height 182.9 cm (6') 01/06/2025 1:02 PM CDT Body Mass Index 24.95 01/06/2025 1:02 PM CDT Plan of Treatment Not on file Procedures Procedure Name Priority Date/Time Associated Diagnosis Comments PULMONARY FUNCTION TEST (PFT) Routine 01/06/2025 12:42 PM CDT Chronic obstructive pulmonary disease, unspecified COPD type (HCC) DEXA AXIAL SKELETON BONE DENSITY 1 OR MORE SITES Schedule Routine, Read Routine (OP Routine) 12/24/2024 12:27 PM CDT Osteopenia of multiple sites EGFR Routine 12/24/2024 11:57 AM CDT Secondary hyperparathyroidis m Vitamin D deficiency BASIC METABOLIC PANEL Routine 12/24/2024 11:57 AM CDT Secondary hyperparathyroidis m Vitamin D deficiency VITAMIN D 25 HYDROXY Routine 12/24/2024 11:57 AM CDT Secondary hyperparathyroidis m Vitamin D deficiency HEPATITIS C ANTIBODY Routine 08/19/2024 10:22 AM SEAM PRESSER Encounter for hepatitis C screening test for low risk patient from Last 3 Months or Most Recently Relevant to Health Maintenance Results * Pulmonary Function Test -[facility]- [facility]; Oxygen Assessment Titration (01/06/2025 12:42 PM CDT) Anatomical Region Laterality Modality PFT Narrative 01/06/2025 5:09 PM CDT Table formatting from the original result was not included. [facility] [address] [place] [address]; [address]; [place] [address]; [phone] Pulmonary Function Laboratory Pulmonary Stress Test Simple/Oxygen Assessment Patient: Norman Fry Date: 01/06/2025 : 1945 Ht: 72 IN Wt: 184 LBS Time (min) Distance (ft)/ Reyes O2 L/M SpO2 HR Som* BP FEV1 % Pred Rest: RA 94 89 0 114/67 1.03 34% Walk/Bike: 1 RA 90 108 0 2 RA/2 88/90 117 0 3 2 90 120 0 4 2/3 88/90 122 0 5 3 90 124 0 6 min 0 sec 3/4 88/91 125 2 Recovery: 1 4 92 115 1 161/81 1.03 34% 3 4 98 96 0.5 *Som rate of perceived exertion (1-10 dyspnea scale) Reji, CHEST 2003; 123:1408 Walk Test Summary: Six Minute Walk Distance: 750 ft Six-minute Walk Work [distance (m) x body wt (kg)]: 41925 kg.m (normal >60,000kg.m) Oxygen required to maintain SpO2 greater than 90% during six minutes of walkin L/M Comments: Interpretation: Breathing room air, SpO2 is adequate at rest. During exercise sufficient to increase pulse, SpO2 falls to hypoxemic levels. On this basis, SpO2 is adequate at rest breathing room air and while walking breathing supplemental O2 at 4 L/min. This level of exercise is associated with no significant change of FEV1. Petar Maher MD By signing this report, the attending pulmonary physician certifies that he has personally reviewed and interpreted the graphic and numerical data associated with this pulmonary function study and has reviewed and /or edited a preliminary draft report and agrees with the written final report. us Lester Sidhu MD PFT ORDERABLES Fin al Result * Dexa Axial Skeleton Bone Density 1 or 2 Site (12/24/2024 12:27 PM CDT) Anatomical Region Laterality Modality Body N/A Other 12/27/2024 8:41 AM CDT Narrative 12/27/2024 8:54 AM CDT EXAM DESCRIPTION: DEXA AXIAL SKELETON BONE DENSITY 1 OR MORE SITES REASON FOR STUDY: 79 y/o year old M with given history of: vitamin d defiency Screening. Vitamin D deficiency, Osteopenia of multiple sites. Lpn Rn Hospice/Model: [email or web address] (S/N [id number]) Facility LSC value of 0.022 for the AP spine, 0.027 for the femur, and 0.023 for the forearm. CLINICAL INFORMATION: Current height: 74 inches Maximum height: 74 inches Weight: 174 pounds Risk factors: Vitamin-D deficiency COMPARISON: None available FINDINGS: AP LUMBAR SPINE L1-L3: Total BMD is 1.202 g/cm2 T-score is 1.7 LEFT HIP: Total BMD is 0.988 g/cm2 T-score is 0.4 Femoral neck BMD is 0.728 g/cm2 T-score is -1.1 FRAX: 10 year risk for a major osteoporotic fracture is 6.5 %, 10 year risk for a hip fracture is 2.3 % Per National Osteoporosis Foundation guidelines, this patient does not meet criteria for treating patients with FRAX 10 year major osteoporotic fracture risk scores of = or greater than 20% or a 10 year probability of a hip fracture = or greater than 3%, to reduce fracture risk. Additional factors such as frequent falls, not represented in FRAX, warrant individual clinical judgment. IMPRESSION: Low Bone Mass. REFERENCE: Bone mineral density: T-Score: Normal (T-score above or = -1.0) Low bone mass (T-score between -1.0 and -2.5) replaces the previously used term osteopenia Osteoporosis (T-score = or below -2.5) Z-Score: Within the expected range for age (Z-score above -2.0) Below the expected range for age (Z-score is -2.0 or below) Please see below follow up recommendations. Medical evaluation for secondary causes of low bone mineral density may be appropriate. FRAX is a World Health Organization validated fracture risk assessment tool that calculates a person's 10 year probability of a major osteoporosis related fracture and hip fracture. According to the National Osteoporosis Foundation guidelines, postmenopausal women and men age 50 or older with low bone mass and a 10 year probability of a major osteoporosis related fracture = or greater than 20% or a 10 year probability of a hip fracture = or greater than 3% should be considered for pharmacological treatment for the prevention of osteoporosis. For further information, including treatment recommendations, please refer to the 2019 ISCD Official Positions (http://www.iscd.org) and the NOF's Clinician's Guide to Prevention and Treatment of Osteoporosis (http://www.nof.org/professionals/clinical-guidelines) THIS IS AN ELECTRONICALLY VERIFIED FINAL REPORT 12/27/2024 8:54 AM - Electronically signed by Haroon Lund M.D. MF: ALBERT Report ID: [id number] Reading Location: [place] [address] Procedure Note Haroon Lund MD - 12/27/2024 EXAM DESCRIPTION: DEXA AXIAL SKELETON BONE DENSITY 1 OR MORE SITES REASON FOR STUDY: 79 y/o year old M with given history of: vitamin d defiency Screening. Vitamin D deficiency, Osteopenia of multiple sites. Lpn Rn Hospice/Model: [facility] (S/N [id number]) Facility LSC value of 0.022 for the AP spine, 0.027 for the femur, and0.023 for the forearm. CLINICAL INFORMATION: Current height: 74 inches Maximum height: 74 inches Weight: 174 pounds Risk factors: Vitamin-D deficiency COMPARISON: None available FINDINGS: AP LUMBAR SPINE L1-L3: Total BMD is 1.202 g/cm2 T-score is 1.7 LEFT HIP: Total BMD is 0.988 g/cm2 T-score is 0.4 Femoral neck BMD is 0.728 g/cm2 T-score is -1.1 FRAX: 10 year risk for a major osteoporotic fracture is 6.5 %, 10 year risk fora hip fracture is 2.3 % Per National Osteoporosis Foundation guidelines, this patient does notmeet criteria for treating patients with FRAX 10 year major osteoporoticfracture risk scores of = or greater than 20% or a 10 year probability of a hip fracture = or greater than 3%, to reduce fracture risk. Additional factors such as frequent falls, not represented in FRAX, warrant individualclinical judgment. IMPRESSION: Low Bone Mass. REFERENCE: Bone mineral density: T-Score: Normal (T-score above or = -1.0) Low bone mass (T-score between -1.0 and -2.5) replaces thepreviously used term osteopenia Osteoporosis (T-score = or below -2.5) Z-Score: Within the expected range for age (Z-score above -2.0) Below the expected range for age (Z-score is -2.0 or below) Please see below follow up recommendations. Medical evaluation forsecondary causes of low bone mineral density may be appropriate. FRAX is a World Health Organization validated fracture risk assessmenttool that calculates a person's 10 year probability of a major osteoporosisrelated fracture and hip fracture. According to the National OsteoporosisFoundation guidelines, postmenopausal women and men age 50 or older with low bonemass and a 10 year probability of a major osteoporosis related fracture = or greater than 20% or a 10 year probability of a hip fracture = or greaterthan 3% should be considered for pharmacological treatment for the preventionof osteoporosis. For further information, including treatment recommendations, please referto the 2019 ISCD Official Positions (http://www.iscd.org) and the NOF's Clinician's Guide to Prevention and Treatment of Osteoporosis (http://www.nof.org/professionals/clinical-guidelines) THIS IS AN ELECTRONICALLY VERIFIED FINAL REPORT 12/27/2024 8:54 AM - Electronically signed by Haroon Lund M.D. MF: ALBERT Report ID: [id number] Reading Location: [place] [address] Bharati Zamora MD IMG DXA PROCEDURES Final Result * eGFR (12/24/2024 11:57 AM CDT) eGFR 63 >=60 mL/min/1. 73 m2 Comment: Interpretive Data [...] Current interpretive data was last reviewed 2021. Blood 12/24/2024 11:5 7 AM CDT 12/24/2024 12:02 PM CDT Bharati Zamora MD LAB BLOOD ORDERABLES Final Resul t Performing Organization Address City/[facility]/ZIP Co de Phone Number [facility]) [address] [place] [address] [place] [address] * Vitamin D 25 hydroxy (12/24/2024 11:57 AM CDT) Pathologist [facility] Vitamin D 25-OH 37 30 - 80 ng/mL Blood 12/24/2024 11:5 7 AM CDT 12/24/2024 12:02 PM CDT Bharati Zamora MD LAB BLOOD ORDERABLES Final Resul t Performing Organization Address City/State/[facility] Co de Phone Number [facility]) [address] [place] [address] [place] [address] * Basic metabolic panel (12/24/2024 11:57 AM CDT) Pathologist [facility] Sodium 137 135 - 145 mmol/L Potassium, pl 3.9 3.3 - 4.9 mmol/L [facility] ([facility]) Chloride 100 97 - 110 mmol/L [facility] ([facility]) CO2 25 22 - 32 mmol/L [facility] ([facility]) Anion gap 12 2 - 15 mmol/L [facility] ([facility]) BUN 11 6 - 25 mg/dL [facility] ([facility]) Creatinine 1.18 0.80 - 1.30 mg/dL [facility] ([facility]) Glucose 141 70 - 199 mg/dL [facility] ([facility]) Comment: Interpretive Data Fasting glucose [...] classification and Diagnosis of Diabetes Diabetes Care 2021; 46: S19-S40. Current interpretive data was last revised 2022. Calcium 8.5 8.5 - 10.3 mg/dL [facility] ([facility]) Blood 12/24/2024 11:5 7 AM CDT 12/24/2024 12:02 PM CDT us Bharati Zamora MD LAB BLOOD ORDERABLES Final Resul t [facility] ([facility]) [address] [facility] Department [place] [address] * Hepatitis C antibody Blood (08/19/2024 10:22 AM SEAM PRESSER) Hep C Ab Nonreactive Nonreactive Comment: Interpretive [...] last revised on 2019. Testing performed by: [facility], [address] [place] [address], [place]., [address] Blood 08/19/2024 10:2 2 AM SEAM PRESSER 08/19/2024 5:19 PM SEAM PRESSER us Rufus Candelario MD LAB MICROBIOLOGY - GENERA L ORDERABLES Final Result [facility] ([facility]) [address] [facility] Department [place] [address] from Last 3 Months or Most Recently Relevant to Health Maintenance Insurance MEDICARE [facility] Advance Directives For more information, please contact: [phone] * Full Code (Latest Code Status on File) Date Activated Date Inactivated Comments 12/10/2023 5:44 PM 12/16/2023 10:07 PM * Full Code Date Activated Date Inactivated Comments 10/17/2023 10:30 AM 10/18/2023 5:35 AM Care Teams Director Informatics Relationship Specialty Start Date End Date Rufus Candelario [place] [address] PCP - General Family Med [id number]|2025-02-24 13:13:00|2025-02-24 13:13:00|P.PNIM_ITS|MILRHIANNAJN|Health Information Management|[id number]|"Subjective Date/time seen: 02/24/25 13:13 Review of Systems Review of Systems: All systems reviewed & are unremarkable except as noted in HPI and below Objective Data Vital Signs Vital Signs: Vital Signs - 24 hr 02/23/25 13:26 02/23/25 13:39 02/23/25 13:45 Temperature Pulse Rate 72 71 72 Respiratory Rate 16 18 18 Blood Pressure 165/93 H 165/71 H 163/80 H Pulse Oximetry 89 L 97 97 Oxygen Delivery Oxygen Flow Rate 02/23/25 14:00 02/23/25 14:15 02/23/25 14:30 Temperature Pulse Rate 82 86 75 Respiratory Rate 18 17 16 Blood Pressure 147/75 H 177/93 H 174/86 H Pulse Oximetry 98 95 97 Oxygen Delivery Oxygen Flow Rate 02/23/25 14:45 02/23/25 16:21 02/23/25 17:02 Temperature 98.3 F Pulse Rate 76 75 75 Respiratory Rate 16 18 12 Blood Pressure 153/76 H 109/67 151/75 H Pulse Oximetry 96 97 96 Oxygen Delivery Oxygen Flow Rate 02/23/25 20:00 02/23/25 20:13 02/24/25 00:00 Temperature 97.8 F Pulse Rate 86 72 Respiratory Rate 16 Blood Pressure 111/60 Pulse Oximetry 94 94 Oxygen Delivery Nasal Cannula Oxygen Flow Rate 4 02/24/25 04:28 02/24/25 05:05 02/24/25 06:21 Temperature 97.4 F L 97.7 F Pulse Rate 72 66 64 Respiratory Rate 12 20 Blood Pressure 158/67 H 137/73 Pulse Oximetry 98 92 Oxygen Delivery Nasal Cannula Oxygen Flow Rate 4 02/24/25 07:58 02/24/25 08:10 02/24/25 08:25 Temperature 97.1 F L Pulse Rate 72 75 66 Respiratory Rate 10 L 11 L 12 Blood Pressure 145/73 H 146/85 H 144/71 H Pulse Oximetry 99 100 100 Oxygen Delivery Simple Face Mask Simple Face Mask Nasal Cannula Oxygen Flow Rate 10 10 4 02/24/25 08:40 02/24/25 08:49 02/24/25 09:07 Temperature 98.2 F Pulse Rate 62 62 65 Respiratory Rate 12 12 12 Blood Pressure 158/71 H 148/72 H 162/94 H Pulse Oximetry 100 100 97 Oxygen Delivery Nasal Cannula Nasal Cannula Oxygen Flow Rate 4 4 02/24/25 09:22 02/24/25 09:50 02/24/25 10:50 Temperature 98.2 F 98.2 F 98.2 F Pulse Rate 70 68 92 Respiratory Rate 12 12 12 Blood Pressure 150/83 H 154/64 H 155/70 H Pulse Oximetry 97 97 100 Oxygen Delivery Oxygen Flow Rate Intake/Output Intake/Output: Intake & Output 02/21/25 02/22/25 02/23/25 02/24/25 23:59 23:59 23:59 23:59 Intake Total 1000 958.3 Output Total 1600 Balance 1000 -641.7 Meds/Results Medications: Active Medications Generic Name Dose Route Start Last Admin Trade Name Freq PRN Reason Stop Dose Admin Acetaminophen 650 mg 02/23/25 17:35 02/24/25 04:10 Acetaminophen 325 Mg Tablet PO 650 mg Q6H PRN Administration Mild Pain (1-3) or Fever Albuterol 2 puff 02/23/25 22:42 Albuterol Sulfate (*Sp) Aerosol 1 Puff INHALATION Q6HRT PRN Shortness Of Breath Or Wheezing Allopurinol 100 mg 02/24/25 09:00 02/24/25 09:47 Allopurinol 100 Mg Tablet PO 100 mg DAILY FAYE Administration Amlodipine Besylate 10 mg 02/24/25 09:00 02/24/25 09:47 Amlodipine Besylate 10 Mg Tablet PO 10 mg DAILY FAYE Administration Duloxetine HCl 60 mg 02/24/25 09:00 02/24/25 09:47 Duloxetine Hcl 60 Mg Capsule.Dr PO 60 mg DAILY FAYE Administration Fentanyl Citrate 25 mcg 02/24/25 07:21 Fentanyl Citrate Inj (*Crx) 100 Mcg/2 Ml Vial IV PUSH Q2M PRN Pain Fluticasone/Umeclidinium/Vilanterol 1 puff 02/24/25 08:00 Fluticasone/Umeclidin/Vilanter 200-62.5-25 Mcg Ellipta INHALATION DAILYRT FAYE Gabapentin 600 mg 02/24/25 09:00 02/24/25 09:47 Gabapentin 300 Mg Capsule PO 600 mg TID FAYE Administration Hydromorphone HCl 0.5 mg 02/23/25 16:10 02/24/25 05:06 Hydromorphone Hcl Inj (*Crx) 2 Mg/Ml Vial IV PUSH 0.5 mg Q4H PRN Administration Pain Rated 7-10 Lactated Ringer's 1,000 mls @ 100 mls/hr 02/23/25 17:40 02/24/25 05:11 Lr - Lactated Ringers Iv IV CONT 02/24/25 13:39 100 mls/hr .Q10H FAYE Administration Lactated Ringer's 1,000 mls @ 30 mls/hr 02/24/25 07:25 02/24/25 07:58 Lr - Lactated Ringers Iv IV CONT 30 mls/hr .Q24H FAYE Infusion Lactated Ringer's 1,000 mls @ 30 mls/hr 02/24/25 07:25 02/24/25 09:13 Lr - Lactated Ringers Iv IV CONT Not Given .Q24H FAYE Ondansetron HCl 4 mg 02/23/25 16:10 02/23/25 20:05 Ondansetron Inj 4 Mg/2 Ml Vial IV PUSH 4 mg Q4H PRN Administration Nausea Ondansetron HCl 4 mg 02/24/25 07:21 Ondansetron Inj 4 Mg/2 Ml Vial IV PUSH ONCE PRN Nausea Oxycodone HCl 20 mg 02/23/25 22:41 02/24/25 00:05 Oxycodone Hcl (*Crx) 5 Mg Tab Ir PO 20 mg Q6H PRN Administration Pain Rated 4-6 Rosuvastatin Calcium 5 mg 02/24/25 21:00 Rosuvastatin 5 Mg Tablet PO HS [facility] Vitamin B Complex 1 cap 02/24/25 09:00 02/24/25 09:47 Vitamin B Complex Capsule PO 1 cap DAILY FAYE Administration Radiology Results: ITS Impressions Abdomen/Pelvis CT 02/23/25 13:19 IMPRESSION: 1. No evidence of appendicitis, diverticulitis or intestinal obstruction. 2. Stone in the right upper ureter with right hydronephrotic changes. Right kidney stones. 3. Left renal cyst. Retrograde Pyelogram 02/24/25 08:41 IMPRESSION: 1. Right internal ureteral stent placement. Please refer to real-time pr ocedural findings for details. Abdomen X-Ray 02/24/25 09:39 IMPRESSION: NO ACUTE ABDOMINAL FINDINGS. Possible stones opposite the midportion of the right double-J stent. Noncontrast abdomen CT is better for evaluation. Labs Labs: Laboratory Results - last 24 hr 02/23/25 02/23/25 02/24/25 12:57 12:58 05:26 WBC 11.2 H RBC 4.43 L Hgb 14.0 Hct 42.1 MCV 95.0 MCH 31.6 MCHC 33.3 RDW 13.2 Plt Count 384 H MPV 8.7 Immature Gran % (Auto) 0.4 Neut % (Auto) 83.7 H Lymph % (Auto) 9.8 L Greene % (Auto) 5.3 Eos % (Auto) 0.4 Baso % (Auto) 0.4 Lymph # (Auto) 1.10 Greene # (Auto) 0.6 Eos # (Auto) 0.1 Baso # (Auto) 0.1 Abs Immat Gran (auto) 0.04 H Absolute Neuts (auto) 9.4 H Absolute Nucleated RBC 0.000 Nucleated RBC % 0.0 PT 13.5 INR 1.0 APTT 29.0 Sodium 136 L Potassium 4.1 Chloride 101 Carbon Dioxide 27 Anion Gap 8 BUN 18 Creatinine 1.64 H Estim Creat Clear Calc 36 Estimated GFR 41 L Glucose 114 H Calcium 8.7 Magnesium 2.2 Total Bilirubin 0.6 AST 33 ALT 23 Alkaline Phosphatase 131 H Total Protein 8.0 Albumin 4.4 Urine Color Yellow Urine Appearance Clear Urine pH 6.5 Ur Specific [place] 1.015 Urine Protein 1+ H Urine Glucose (UA) Negative Urine Ketones Negative Ur Blood (Man) 3+ H Urine Nitrate Negative Urine Bilirubin Negative Urine Urobilinogen 1.0 Leukocyte Esterase Rfl Negative Urine RBC >100 H Urine WBC 0-5 Ur Squamous Epith Cells None seen Urine Bacteria None seen Urine Casts 0-2 02/24/25 05:31 WBC 10.0 RBC 4.06 L Hgb 12.7 L Hct 40.0 L MCV 98.5 MCH 31.3 MCHC 31.8 L RDW 13.3 Plt Count 282 MPV 8.8 Immature Gran % (Auto) 0.5 Neut % (Auto) 75.6 H Lymph % (Auto) 11.5 L [place] % (Auto) 10.1 H Eos % (Auto) 2.0 Baso % (Auto) 0.3 Lymph # (Auto) 1.15 Greene # (Auto) 1.0 H Eos # (Auto) 0.2 Baso # (Auto) 0.0 Abs Immat Gran (auto) 0.05 H Absolute Neuts (auto) 7.6 H Absolute Nucleated RBC 0.000 Nucleated RBC % 0.0 PT INR APTT Sodium 139 Potassium 5.2 H Chloride 105 Carbon Dioxide 32 H Anion Gap 2 L BUN 19 Creatinine 2.00 H Estim Creat Clear Calc 30 Estimated GFR 32 L Glucose 110 Calcium 8.3 L Magnesium Total Bilirubin 0.7 AST 29 ALT 18 Alkaline Phosphatase 102 Total Protein 7.0 Albumin 3.7 Urine Color Urine Appearance Urine pH Ur Specific [place] Urine Protein Urine Glucose (UA) Urine Ketones Ur Blood (Man) Urine Nitrate Urine Bilirubin Urine Urobilinogen Leukocyte Esterase Rfl Urine RBC Urine WBC Ur Squamous Epith Cells Urine Bacteria Urine Casts "
--- OUTSIDE RECORDS SUMMARY | 2025-02-23 10:43 | XMS_ITS | Encounter Summary ---
Author Organization [facility] Address [address] [place] [address] Phone Care Team Providers Care Certified Orthotist/Pedorthist Name Role Phone Unknown, Notinfile Primary Care Provider Unavail Rufus Mack MD Primary Care Provider [phone] Coby Adler RN Unavailable [phone] Encounter Details Date Type Department Care Team [...] COVID: Suspected 12/10/2023 12/10/2023 12/10/2023 8:28 PM ASSEMBLY STOCK SUPERVISOR Rhino/Enterovirus 12/10/2023 12/10/2023 12/17/2023 3:05 AM CDT documented as of this encounter Care Teams Certified Orthotist/Pedorthist Relationship Specialty Start Date End Date Unknown, Notinfile PCP - General 01/24/23 04/14/23 Rufus Candelario MD [address] [place] [address] PCP - General Family Medicine 04/15/23 Coby Adler, RN [address] [address] [facility] Out[facility] Exhibition Carver 12/17/23 12/17/23 documented as of this encounter
--- OUTSIDE RECORDS SUMMARY | 2025-02-23 10:43 | XMS_ITS | Encounter Summary ---
Author Organization [facility] Address [address] [place] [address] Phone Care Team Providers Care Forest Pathology Professor Name Role Phone Unknown, Notinfile Primary Care Provider Unavail Rufus Mack MD Primary Care Provider [phone] Coby Adler RN Unavailable [phone] Encounter Details Date Type Department Care Team [...] COVID: Suspected 12/10/2023 12/10/2023 12/10/2023 8:28 PM PAINTINGS CONSERVATOR Rhino/Enterovirus 12/10/2023 12/10/2023 12/17/2023 3:05 AM CDT documented as of this encounter Care Teams Forest Pathology Professor Relationship Specialty Start Date End Date Unknown, Notinfile PCP - General 01/24/23 04/14/23 Rufus Candelario MD [address] [place] [address] PCP - General Family Medicine 04/15/23 Coby Adler, SERAFIN [address] [address] [facility] Outpatient Poultry Hanger 12/17/23 12/17/23 documented as of this encounter
--- OUTSIDE RECORDS SUMMARY | 2025-02-23 10:43 | XMS_ITS | Encounter Summary ---
Author Organization [facility] Address [address] [place] [address] Phone Care Team Providers Care Retail Reset Merchandiser Name Role Phone Unknown, Notinfile Primary Care Provider Unavail Rufus Mack MD Primary Care Provider [phone] Coby Adler RN Unavailable [phone] Encounter Details Date Type Department Care Team [...] COVID: Suspected 12/10/2023 12/10/2023 12/10/2023 8:28 PM FERRY OPERATOR Rhino/Enterovirus 12/10/2023 12/10/2023 12/17/2023 3:05 AM CDT documented as of this encounter Care Teams Retail Reset Merchandiser Relationship Specialty Start Date End Date Unknown, Notinfile PCP - General 01/24/23 04/14/23 Rufus Candelario MD [address] [place] [address] PCP - General Family Medicine 04/15/23 Coby Adler, RN [address] [address] [facility] Outpatient Geriatric Case Manager 12/17/23 12/17/23 documented as of this encounter
--- OUTSIDE RECORDS SUMMARY | 2025-02-23 10:43 | XMS_ITS | Encounter Summary ---
Author Organization [facility] Address [address] [place] [address] Phone Care Team Providers Care Montessori Lead Teacher Name Role Phone Unknown, Notinfile Primary Care Provider Unavail Rufus Mack MD Primary Care Provider [phone] Coby Adler RN Unavailable [phone] Encounter Details Date Type Department Care Team [...] COVID: Suspected 12/10/2023 12/10/2023 12/10/2023 8:28 PM ASTRONOMY PROFESSOR Rhino/Enterovirus 12/10/2023 12/10/2023 12/17/2023 3:05 AM CDT documented as of this encounter Care Teams Montessori Lead Teacher Relationship Specialty Start Date End Date Unknown, Notinfile PCP - General 01/24/23 04/14/23 Rufus Candelario MD [address] [place] [address] PCP - General Family Medicine 04/15/23 Coby Adler, RN [address] [address] [facility] Outpatient Packaging Sales Representative 12/17/23 12/17/23 documented as of this encounter
--- OUTSIDE RECORDS SUMMARY | 2025-02-23 10:43 | XMS_ITS | Encounter Summary ---
Author Organization [facility] Address [address] [place] [address] Phone Care Team Providers Care Public Health Staff Nurse Name Role Phone Unknown, Notinfile Primary Care Provider Unavail Rufus Mack MD Primary Care Provider [phone] Coby Adler RN Unavailable [phone] Encounter Details Date Type Department Care Team [...] COVID: Suspected 12/10/2023 12/10/2023 12/10/2023 8:28 PM TERMITE RENEWAL INSPECTOR Rhino/Enterovirus 12/10/2023 12/10/2023 12/17/2023 3:05 AM CDT documented as of this encounter Care Teams Public Health Staff Nurse Relationship Specialty Start Date End Date Unknown, Notinfile PCP - General 01/24/23 04/14/23 Rufus Candelario MD [address] [place] [address] PCP - General Family Medicine 04/15/23 Coby Adler, SERAFIN [address] [address] [facility] [employer] Paralegal 12/17/23 12/17/23 documented as of this encounter
--- OUTSIDE RECORDS SUMMARY | 2025-02-23 10:43 | XMS_ITS | Clinical Summary ---
Author Organization [facility] Address [address] [place] [address] Care Team Providers Care Multimedia Specialist Name Role Phone Rufus Candelario MD Primary Care Provider [phone] Allergies No known active allergies Medications cyanocobalamin, [...] 09/08/2024 Assessment & Plan (09/08/2024 4:08 PM OUTDOOR RECREATION SPECIALIST): Patient reports some concerns about memory, especially short-term Often things will come back to home, though can take extra time to find things Able to drive and does not get lost, able to manage finances Power of commercial development manager for Will continue to monitor Drug-induced nausea [...] 12/11/2023 Assessment & Plan (12/12/2023 1:21 PM OUTDOOR RECREATION SPECIALIST): -continue airway clearance with hypertonic saline twice daily and flutter valve Assessment & Plan (12/11/2023 12:39 PM OUTDOOR RECREATION SPECIALIST): -continue airway clearance with hypertonic saline twice [...] today) Assessment & Plan (12/12/2023 1:20 PM OUTDOOR RECREATION SPECIALIST): -diagnosed 10/2023 on bronchoscopy, nodular disease w/ [...] omadacycline Assessment & Plan (12/11/2023 12:36 PM OUTDOOR RECREATION SPECIALIST): -diagnosed 10/2023 on bronchoscopy, nodular disease w/ [...] 12/10/2023 Assessment & Plan (09/08/2024 4:07 PM OUTDOOR RECREATION SPECIALIST): Stable, has chronic pain, multiple sites, generally well controlled with current medications Patient unable to bend over to do work, has pain with walking Current doses no longer providing significant relief Patient is strictly medications, no risk for abuse Will increase oxycodone to 20 mg q.6 hours p.r.n. Assessment & Plan (12/10/2023 6:36 PM OUTDOOR RECREATION SPECIALIST): - cont home oxy, duloxetine, gabapentin - pending renal function, may want to dose reduce gabapentin - stool softeners PRN Gout 12/10/2023 Assessment & Plan (02/11/2024 4:05 PM CDT): Stable, well controlled, no major flares Continue allopurinol 100 mg daily Assessment & Plan (12/10/2023 6:35 PM OUTDOOR RECREATION SPECIALIST): - allopurinol CKD (chronic kidney disease) 12/10/2023 Assessment & Plan (09/08/2024 4:07 PM OUTDOOR RECREATION SPECIALIST): Last EGFR was 54, PTH mildly elevated [...] baseline Assessment & Plan (12/12/2023 1:21 PM OUTDOOR RECREATION SPECIALIST): -monitor renal function, renally dose meds -elevation in creatinine to 1.9 3/6. Unlikely due to antibiotics which were just started, but will monitor. Agree with IV hydration Assessment & Plan (12/11/2023 12:37 PM OUTDOOR RECREATION SPECIALIST): -monitor renal function, renally dose meds Assessment & Plan (12/14/2023 11:54 AM OUTDOOR RECREATION SPECIALIST): Cr 1.55 outpatient, presumably representing CKD3. - Cr 1.71 > 1.92 > 1.43 > 1.58, ALICE improved with IVF - Hold losartan for now - Renally dose meds, avoid nephrotoxins - requesting RN to assist with records from prior Surgical Instrument Mechanic - Referral to Nephrology at discharge Sore throat 12/10/2023 Assessment & Plan (12/11/2023 10:27 AM OUTDOOR RECREATION SPECIALIST): C/o sore throat x 4 days BARREL RIFLER HOOK. - RPP + rhino/entero virus - CXR [...] 04/15/2023 Assessment & Plan (09/08/2024 4:07 PM OUTDOOR RECREATION SPECIALIST): Stable, patient reports it takes less to [...] required Assessment & Plan (12/13/2023 4:45 PM OUTDOOR RECREATION SPECIALIST): -Continue home Trelegy daily and albuterol prn Assessment & Plan (12/12/2023 1:20 PM OUTDOOR RECREATION SPECIALIST): -Continue home Trelegy daily and albuterol prn Assessment & Plan (12/11/2023 12:36 PM OUTDOOR RECREATION SPECIALIST): Continue home Trelegy and albuterol prn Assessment & Plan (12/11/2023 10:25 AM OUTDOOR RECREATION SPECIALIST): COPD w/ severe airflow limitation and lower [...] 08/10/2018 Assessment & Plan (09/08/2024 4:06 PM OUTDOOR RECREATION SPECIALIST): Stable, well controlled Continue rosuvastatin 5 mg [...] Type Department Care Team Description 01/08/2025 Telephone [facility] 8th [place] [address] [place] [address] Andrea Sherman RN 01/06/2025 1:30 PM CDT Office Visit [facility] [address] [facility] 8th [place] [address] [place] [address] Lester Hair MD Abnormal chest CT (Primary Dx); Chronic obstructive pulmonary disease, unspecified COPD type (HCC); Hypoxemia; Cavitary lesion of lung; 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 01/06/2025 12:17 PM CDT - 01/06/2025 11:59 PM CDT Hospital Encounter [facility] [address] [facility] [address] [place] [id number] Chronic obstructive pulmonary disease, unspecified COPD type (HCC) Discharge Disposition: Discharge to home or self care 01/01/2025 Results Follow-Up [facility] [address] [address] Bharati Zamora MD Dexa Axial Skeleton Bone Density 1 or 2 Site 01/01/2025 Results Follow-Up [facility] [address] [address] Bharati Zamora MD Vitamin D 25 hydroxy, Basic metabolic panel, eGFR 12/24/2024 11:55 AM CDT Lab [address] [address] Secondary hyperparathyroidism; Vitamin D deficiency 12/24/2024 11:52 AM CDT - 12/24/2024 11:59 PM CDT Hospital Encounter [facility] [address] [place] [address] Osteopenia of multiple sites Discharge Disposition: Discharge to home or self care 12/14/2024 Telephone [facility] [address] [facility] 8th [address] [place] [id number] Andrea Sherman RN 11/30/2024 11:45 AM OUTDOOR RECREATION SPECIALIST Office Visit [facility] [address] [address] Bharati Zamora MD Secondary hyperparathyroidism (Primary Dx); Vitamin D deficiency; Osteopenia of multiple sites from Last 3 Months Immunizations Immunization Administration Dates Next Due Influenza, [...] 01/06/2025 1:02 PM CDT Plan of Treatment Health Maintenance Due Date [...] HEPATITIS C ANTIBODY Routine 08/19/2024 10:22 AM OUTDOOR RECREATION SPECIALIST Encounter for hepatitis C screening test for [...] Division of Pulmonary & Critical Care Medicine [address] [place] [address]; [facility] [place] [facility]; [place] [address]; [phone] Pulmonary Function Laboratory Pulmonary Stress Test Simple/Oxygen [...] Work [distance (m) x body wt (kg)]: 62693 kg.m (normal >60,000kg.m) Oxygen required to maintain [...] Vitamin D deficiency, Osteopenia of multiple sites. Chief Substation Operator/Model: [employer] (S/N [id number]) Facility LSC value of 0.022 for the [...] Haroon Lund M.D. MF: ALBERT Report ID: [id number] Reading Location: [id number] Procedure Note Haroon Lund MD - 12/27/2024 EXAM DESCRIPTION: DEXA AXIAL SKELETON BONE DENSITY 1 OR MORE SITES REASON FOR STUDY: 79 y/o year old M with given history of: vitamin d defiency Screening. Vitamin D deficiency, Osteopenia of multiple sites. Chief Substation Operator/Model: [employer] ([id number]/N [id number]) Facility LSC value of 0.022 for the [...] Haroon Lund M.D. MF: ALBERT Report ID: [id number] Reading Location: [place] [address] Bharati Zamora MD IM DXA PROCEDURES Final Result * eGFR (12/24/2024 [...] MD LAB BLOOD ORDERABLES Final Resul t [facility] ([place]) 1 [facility] [place] [address] * Vitamin D 25 hydroxy (12/24/2024 11:57 AM CDT) Vitamin D 25-OH 37 30 - 80 ng/mL Blood 12/24/2024 11:5 7 AM CDT 12/24/2024 12:02 PM CDT us Bharati Zamora MD LAB BLOOD ORDERABLES Final Resul t Performing Organization Address [facility] de Phone Number [facility] S[facility] ([place]) 1 [facility] [place] [address] * Basic metabolic panel (12/24/2024 11:57 AM CDT) Sodium 137 135 - 145 mmol/L Potassium, pl 3.9 3.3 - 4.9 mmol/L [facility] ([place]) Chloride 100 97 - 110 mmol/L [facility] ([place]) CO2 25 22 - 32 mmol/L [facility] ([place]) Anion gap 12 2 - 15 mmol/L [facility] ([place]) BUN 11 6 - 25 mg/dL [facility] ([place]) Creatinine 1.18 0.80 - 1.30 mg/dL [facility] ([place]) Glucose 141 70 - 199 mg/dL [facility] ([place]) Comment: Interpretive Data Fasting glucose >/= [...] 2022. Calcium 8.5 8.5 - 10.3 mg/dL [facility] ([place]) Blood 12/24/2024 11:5 7 AM CDT 12/24/2024 12:02 PM CDT us Bharati Zamora MD LAB BLOOD ORDERABLES Final Resul t [facility] ([place]) 1 [facility] [place] [address] * Hepatitis C antibody Blood (08/19/2024 10:22 AM OUTDOOR RECREATION SPECIALIST) Hep C Ab Nonreactive Nonreactive Comment: Interpretive [...] last revised on 2019. Testing performed by: [facility], [address] [place] [address]., [address] Blood 08/19/2024 10:2 2 AM OUTDOOR RECREATION SPECIALIST 08/19/2024 5:19 PM OUTDOOR RECREATION SPECIALIST us Rufus Candelario MD LAB MICROBIOLOGY - GENERA L ORDERABLES Final Result Performing Organization Address City/[facility]/ZIP Co de Phone Number [facility] S[facility] ([place]) 1 [facility] [place] [address] from Last 3 Months or Most Recently Relevant to Health Maintenance Insurance MEDICARE MEDICARE [facility] * Guarantor: Norman Fry [id number]||2025-02-24 09:39:00|XR_ITS|ELZIMMILIZ|Imaging|[id number]|"XR abdomen/kub 1V Ordering provider: Mariano Newton MD History: . Right ureteral stone location post stent placement . Comparison: None. FINDINGS: BOWEL: Nonobstructive bowel gas pattern. ORGANOMEGALY: None. SIGNIFICANT PATHOLOGIC CALCIFICATIONS: Fecal material is overlapping the kidneys and ureters. Possibl e calcification is present the midportion of the right double-J stent. Right double-J stent. OTHER: No free air is seen under the diaphragm. Postoperative changes in the lower lumbar area. Dextroscoliosis with degenerative changes of the spin e. IMPRESSION: NO ACUTE ABDOMINAL FINDINGS. Possible stones opposite the midportion of the right double-J stent. Noncontrast abdomen CT is better for evaluation. Reviewed, dictated and finalized at location A. IMPRESSION: NO ACUTE ABDOMINAL FINDINGS. Possible stones opposite the midportion of the right double-J stent. Noncontras t abdomen CT is better for evaluation. "
--- OUTSIDE RECORDS SUMMARY | 2025-02-23 12:10 | XMS_ITS | Encounter Summary ---
Author Organization [facility] Address [address] [place] [address] Phone Care Team Providers Care Supervisor Polishing Name Role Phone Unknown, Notinfile Primary Care Provider Unavail Rufus Mack MD Primary Care Provider [phone] Coby Adler RN Unavailable [phone] Encounter Details Date Type Department Care Team [...] COVID: Suspected 12/10/2023 12/10/2023 12/10/2023 8:28 PM INDUSTRIAL ELECTRICAL TECHNICIAN Rhino/Enterovirus 12/10/2023 12/10/2023 12/17/2023 3:05 AM CDT documented as of this encounter Care Teams Supervisor Polishing Relationship Specialty Start Date End Date Unknown, Notinfile PCP - General 01/24/23 04/14/23 Rufus Candelario MD [address] [place] [address] PCP - General Family Medicine 04/15/23 Coby Adler, SERAFIN [address] [address] [facility] Outpatient Equipment Analyst 12/17/23 12/17/23 documented as of this encounter
--- OUTSIDE RECORDS SUMMARY | 2025-02-23 12:10 | XMS_ITS | Encounter Summary ---
Author Organization [facility] Address [address] [place] [address] Phone Care Team Providers Care Healthcare Administrator Name Role Phone Unknown, Notinfile Primary Care Provider Unavail Rufus Mack MD Primary Care Provider [phone] Coby Adler RN Unavailable [phone] Encounter Details Date Type Department Care Team [...] COVID: Suspected 12/10/2023 12/10/2023 12/10/2023 8:28 PM CRIMPER OPERATOR Rhino/Enterovirus 12/10/2023 12/10/2023 12/17/2023 3:05 AM CDT documented as of this encounter Care Teams Healthcare Administrator Relationship Specialty Start Date End Date Unknown, Notinfile PCP - General 01/24/23 04/14/23 Rufus Candelario MD [address] [place] [address] PCP - General Family Medicine 04/15/23 Coby Adler, SERAFIN [address] [address] [facility] Admissions Clerk 12/17/23 12/17/23 documented as of this encounter
--- OUTSIDE RECORDS SUMMARY | 2025-02-23 12:10 | XMS_ITS | Clinical Summary ---
Author Organization [facility] Address [address] [place] [address] Care Team Providers Care Supervisor In Circuit Testing Name Role Phone Rufus Candelario MD Primary Care Provider [phone] [phone] Allergies No known active allergies Medications cyanocobalamin, [...] 09/08/2024 Assessment & Plan (09/08/2024 4:08 PM CUTTER HOT KNIFE): Patient reports some concerns about memory, especially short-term Often things will come back to home, though can take extra time to find things Able to drive and does not get lost, able to manage finances Power of insurance defense attorney for Will continue to monitor Drug-induced [...] 12/11/2023 Assessment & Plan (12/12/2023 1:21 PM CUTTER HOT KNIFE): -continue airway clearance with hypertonic saline twice daily and flutter valve Assessment & Plan (12/11/2023 12:39 PM CUTTER HOT KNIFE): -continue airway clearance with hypertonic saline twice [...] today) Assessment & Plan (12/12/2023 1:20 PM CUTTER HOT KNIFE): -diagnosed 10/2023 on bronchoscopy, nodular disease w/ [...] omadacycline Assessment & Plan (12/11/2023 12:36 PM CUTTER HOT KNIFE): -diagnosed 10/2023 on bronchoscopy, nodular disease w/ [...] 12/10/2023 Assessment & Plan (09/08/2024 4:07 PM CUTTER HOT KNIFE): Stable, has chronic pain, multiple sites, generally well controlled with current medications Patient unable to bend over to do work, has pain with walking Current doses no longer providing significant relief Patient is strictly medications, no risk for abuse Will increase oxycodone to 20 mg q.6 hours p.r.n. Assessment & Plan (12/10/2023 6:36 PM CUTTER HOT KNIFE): - cont home oxy, duloxetine, gabapentin - pending renal function, may want to dose reduce gabapentin - stool softeners PRN Gout 12/10/2023 Assessment & Plan (02/11/2024 4:05 PM CDT): Stable, well controlled, no major flares Continue allopurinol 100 mg daily Assessment & Plan (12/10/2023 6:35 PM CUTTER HOT KNIFE): - allopurinol CKD (chronic kidney disease) 12/10/2023 Assessment & Plan (09/08/2024 4:07 PM CUTTER HOT KNIFE): Last EGFR was 54, PTH mildly elevated [...] baseline Assessment & Plan (12/12/2023 1:21 PM CUTTER HOT KNIFE): -monitor renal function, renally dose meds -elevation in creatinine to 1.9 3/6. Unlikely due to antibiotics which were just started, but will monitor. Agree with IV hydration Assessment & Plan (12/11/2023 12:37 PM CUTTER HOT KNIFE): -monitor renal function, renally dose meds Assessment & Plan (12/14/2023 11:54 AM CUTTER HOT KNIFE): Cr 1.55 outpatient, presumably representing CKD3. 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 - RPP + rhino/entero virus - CXR as elsewhere - abx as elsewhere - see COPD Cervical radiculopathy 04/30/2023 Assessment & Plan (07/22/2023 10:03 AM CDT): Continues to have constant pain; has some relief with current medications to improve function -symptoms worse in lower back -with medication able to take halfway and -use every 6 hours (4 tabs [...] 04/15/2023 Assessment & Plan (09/08/2024 4:07 PM CUTTER HOT KNIFE): Stable, patient reports it takes less to [...] required Assessment & Plan (12/13/2023 4:45 PM CUTTER HOT KNIFE): -Continue home Trelegy daily and albuterol prn Assessment & Plan (12/12/2023 1:20 PM CUTTER HOT KNIFE): -Continue home Trelegy daily and albuterol prn Assessment & Plan (12/11/2023 12:36 PM CUTTER HOT KNIFE): Continue home Trelegy and albuterol prn Assessment & Plan (12/11/2023 10:25 AM CUTTER HOT KNIFE): COPD w/ severe airflow limitation and lower [...] 08/10/2018 Assessment & Plan (09/08/2024 4:06 PM CUTTER HOT KNIFE): Stable, well controlled Continue rosuvastatin 5 mg [...] Type Department Care Team Description 01/08/2025 Telephone [facility] 8th [place] [address] [place] [address] Andrea Sherman RN 01/06/2025 1:30 PM CDT Office Visit [facility] [address] [facility] 8th [place] [address] [place] [address] Lester Hair MD Abnormal chest CT (Primary Dx); Chronic obstructive pulmonary disease, unspecified COPD type (HCC); Hypoxemia; Cavitary lesion of lung; 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 01/06/2025 12:17 PM CDT - 01/06/2025 11:59 PM CDT Hospital Encounter [facility] [address] [facility] [address] [place] [id number] Chronic obstructive pulmonary disease, unspecified COPD type (HCC) Discharge Disposition: Discharge to home or self care 01/01/2025 Results Follow-Up [facility] [address] [address] Bharati Zamora MD Dexa Axial Skeleton Bone Density 1 or 2 Site 01/01/2025 Results Follow-Up [facility] [address] [address] Bharati Zamora MD Vitamin D 25 hydroxy, Basic metabolic panel, eGFR 12/24/2024 11:55 AM CDT Lab [address] [address] Secondary hyperparathyroidism; Vitamin D deficiency 12/24/2024 11:52 AM CDT - 12/24/2024 11:59 PM CDT Hospital Encounter [facility] [address] [place] [address] Osteopenia of multiple sites Discharge Disposition: Discharge to home or self care 12/14/2024 Telephone [facility] [address] [facility] 8th Floor [address] [place] [phone] Andrea Sherman RN 11/30/2024 11:45 AM CUTTER HOT KNIFE [facility] [address] [address] Bharati Zamora MD Secondary hyperparathyroidism [...] HEPATITIS C ANTIBODY Routine 08/19/2024 10:22 AM CUTTER HOT KNIFE Encounter for hepatitis C screening test for low risk patient from Last 3 Months or Most Recently Relevant to Health Maintenance Results * Pulmonary Function Test -[facility] Adult PFT Lab- CAM-8D; Oxygen Assessment Titration (01/06/2025 12:42 PM CDT) Anatomical Region Laterality Modality PFT Narrative 01/06/2025 5:09 PM CDT Table formatting from the original result was not included. [facility] Division of Pulmonary & Critical Care Medicine [address] [place] [address]; [address] [facility]; [place] [address]; [phone] Pulmonary Function Laboratory Pulmonary Stress Test Simple/Oxygen [...] Work [distance (m) x body wt (kg)]: 05849 kg.m (normal >60,000kg.m) Oxygen required to maintain [...] Vitamin D deficiency, Osteopenia of multiple sites. Splicing Supervisor/Model: [employer] SL (S/N [id number]) Facility LSC value of 0.022 for the [...] Haroon Lund M.D. MF: ALBERT Report ID: [id number] Reading Location: [id number] Procedure Note Haroon Lund MD - 12/27/2024 EXAM DESCRIPTION: DEXA AXIAL SKELETON BONE DENSITY 1 OR MORE SITES REASON FOR STUDY: 79 y/o year old M with given history of: vitamin d defiency Screening. Vitamin D deficiency, Osteopenia of multiple sites. Splicing Supervisor/Model: [employer] (S/N [id number]) Facility LSC value of 0.022 for the [...] Haroon Lund M.D. MF: ALBERT Report ID: [id number] Reading Location: [place] [address] Bhartai Zamora MD IM DXA PROCEDURES Final Result [...] BLOOD ORDERABLES Final Resul t ARACELI SANDERS ([place]) 1 [facility] Department [place] [address] * Vitamin D 25 hydroxy (12/24/2024 11:57 AM CDT) Vitamin D 25-OH 37 30 - 80 ng/mL Blood 12/24/2024 11:5 7 AM CDT 12/24/2024 12:02 PM CDT us Bharati Zamora MD LAB BLOOD ORDERABLES Final Resul t Performing Organization Address [facility] de Phone Number ARACELI SANDERS ([place]) [address] [facility] [place] [address] * Basic metabolic panel (12/24/2024 11:57 AM CDT) Sodium 137 135 - 145 mmol/L Potassium, pl 3.9 3.3 - 4.9 mmol/L [facility] ([place]) Chloride 100 97 - 110 mmol/L [facility] ([facility]) CO2 25 22 - 32 mmol/L [facility] ([facility]) Anion gap 12 2 - 15 mmol/L [facility] ([facility]) BUN 11 6 - 25 mg/dL [facility] (CAR) Creatinine 1.18 0.80 - 1.30 mg/dL [facility] ([facility]) Glucose 141 70 - 199 mg/dL [facility] (CAR) Comment: Interpretive Data Fasting glucose [...] BLOOD ORDERABLES Final Resul t ARACELI SANDERS ([place]) 1 [facility] [place] [address] * Hepatitis C antibody Blood (08/19/2024 10:22 AM CUTTER HOT KNIFE) Hep C Ab Nonreactive Nonreactive Comment: Interpretive [...] last revised on 2019. Testing performed by: [facility], [address] [place] [address]., [address] Blood 08/19/2024 10:2 2 AM CUTTER HOT KNIFE 08/19/2024 5:19 PM CUTTER HOT KNIFE us Rufus Candelario MD LAB MICROBIOLOGY - GENERA L ORDERABLES Final Result Performing Organization Address City/[facility]/ZIP Co de Phone Number ARACELI SANDERS ([place]) [address] [facility] [place] [address] from Last 3 Months or Most Recently Relevant to Health Maintenance Insurance MEDICARE MEDICARE [facility] * Guarantor: Norman Fry [id number]|2025-02-23 12:10:00|2025-02-23 12:10:00|XMS_ITS|BKG DAEMON|External Medical Summaries|[id number]|" Referral Summary Created on: February 23, 2025 Norman Fry : 1945 Sex: Male Author Organization [facility] Address [address] [place] [address] Care Team Providers Care Supervisor In Circuit Testing Name Role Phone Rufus Candelario MD Primary Care Provider [phone] [phone] Encounters Date Type Department Care Team Description 01/08/2025 Telephone [facility] [address] [facility] 8th [place] [address] [place] [phone] Andrea Sherman RN 01/06/2025 1:30 PM CDT Office Visit [facility] [address] [facility] 8th [place] [address] [place] [address] Lester Hair MD Abnormal chest CT (Primary Dx); Chronic obstructive pulmonary disease, unspecified COPD type (HCC); Hypoxemia; Cavitary lesion of lung; 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 01/06/2025 12:17 PM CDT - 01/06/2025 11:59 PM CDT Hospital Encounter [facility] [address] [facility] [address] [place] [phone] Chronic obstructive pulmonary disease, unspecified COPD type (HCC) Discharge Disposition: Discharge to home or self care 01/01/2025 Results Follow-Up [facility] [address] [address] Bharati Zamora MD Dexa Axial Skeleton Bone Density 1 or 2 Site 01/01/2025 Results Follow-Up [facility] [address] [address] Bharati Zamora MD Vitamin D 25 hydroxy, Basic metabolic panel, eGFR 12/24/2024 11:55 AM CDT Lab [address] [address] Secondary hyperparathyroidism; Vitamin D deficiency 12/24/2024 11:52 AM CDT - 12/24/2024 11:59 PM CDT Hospital Encounter [facility] [address] [place] [address] Osteopenia of multiple sites Discharge Disposition: Discharge to home or self care 12/14/2024 Telephone [facility] [address] [facility] 8th [place] [address] [place] [address] Andrea Sherman RN 11/30/2024 11:45 AM CUTTER HOT KNIFE Office Visit [facility] [address] [place] [address] Bharati Zamora MD Secondary [...] 09/08/2024 Assessment & Plan (09/08/2024 4:08 PM CUTTER HOT KNIFE): Patient reports some concerns about memory, especially short-term Often things will come back to home, though can take extra time to find things Able to drive and does not get lost, able to manage finances Power of insurance defense attorney for Will continue to monitor Drug-induced [...] 12/11/2023 Assessment & Plan (12/12/2023 1:21 PM CUTTER HOT KNIFE): -continue airway clearance with hypertonic saline twice daily and flutter valve Assessment & Plan (12/11/2023 12:39 PM CUTTER HOT KNIFE): -continue airway clearance with hypertonic saline twice [...] today) Assessment & Plan (12/12/2023 1:20 PM CUTTER HOT KNIFE): -diagnosed 10/2023 on bronchoscopy, nodular disease w/ [...] omadacycline Assessment & Plan (12/11/2023 12:36 PM CUTTER HOT KNIFE): -diagnosed 10/2023 on bronchoscopy, nodular disease w/ [...] 12/10/2023 Assessment & Plan (09/08/2024 4:07 PM CUTTER HOT KNIFE): Stable, has chronic pain, multiple sites, generally well controlled with current medications Patient unable to bend over to do work, has pain with walking Current doses no longer providing significant relief Patient is strictly medications, no risk for abuse Will increase oxycodone to 20 mg q.6 hours p.r.n. Assessment & Plan (12/10/2023 6:36 PM CUTTER HOT KNIFE): - cont home oxy, duloxetine, gabapentin - pending renal function, may want to dose reduce gabapentin - stool softeners PRN Gout 12/10/2023 Assessment & Plan (02/11/2024 4:05 PM CDT): Stable, well controlled, no major flares Continue allopurinol 100 mg daily Assessment & Plan (12/10/2023 6:35 PM CUTTER HOT KNIFE): - allopurinol CKD (chronic kidney disease) 12/10/2023 Assessment & Plan (09/08/2024 4:07 PM CUTTER HOT KNIFE): Last EGFR was 54, PTH mildly elevated [...] baseline Assessment & Plan (12/12/2023 1:21 PM CUTTER HOT KNIFE): -monitor renal function, renally dose meds -elevation in creatinine to 1.9 3/6. Unlikely due to antibiotics which were just started, but will monitor. Agree with IV hydration Assessment & Plan (12/11/2023 12:37 PM CUTTER HOT KNIFE): -monitor renal function, renally dose meds Assessment & Plan (12/14/2023 11:54 AM CUTTER HOT KNIFE): Cr 1.55 outpatient, presumably representing CKD3. 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 - RPP + rhino/entero virus - CXR as elsewhere - abx as elsewhere - see COPD Cervical radiculopathy 04/30/2023 Assessment & Plan (07/22/2023 10:03 AM CDT): Continues to have constant pain; has some relief with current medications to improve function -symptoms worse in lower back -with medication able to take halfway and -use every 6 hours (4 tabs [...] 04/15/2023 Assessment & Plan (09/08/2024 4:07 PM CUTTER HOT KNIFE): Stable, patient reports it takes less to [...] required Assessment & Plan (12/13/2023 4:45 PM CUTTER HOT KNIFE): -Continue home Trelegy daily and albuterol prn Assessment & Plan (12/12/2023 1:20 PM CUTTER HOT KNIFE): -Continue home Trelegy daily and albuterol prn Assessment & Plan (12/11/2023 12:36 PM CUTTER HOT KNIFE): Continue home Trelegy and albuterol prn Assessment & Plan (12/11/2023 10:25 AM CUTTER HOT KNIFE): COPD w/ severe airflow limitation and lower [...] 08/10/2018 Assessment & Plan (09/08/2024 4:06 PM CUTTER HOT KNIFE): Stable, well controlled Continue rosuvastatin 5 mg [...] HEPATITIS C ANTIBODY Routine 08/19/2024 10:22 AM CUTTER HOT KNIFE Encounter for hepatitis C screening test for low risk patient from Last 3 Months or Most Recently Relevant to Health Maintenance Results * Pulmonary Function Test -[facility] Adult PFT Lab- CAM-8D; Oxygen Assessment Titration (01/06/2025 12:42 PM CDT) Anatomical Region Laterality Modality PFT Narrative 01/06/2025 5:09 PM CDT Table formatting from the original result was not included. [facility] Division of Pulmonary & Critical Care Medicine [address] [place] [address]; [address]; [place] [address]; [phone] Pulmonary Function Laboratory Pulmonary Stress Test Simple/Oxygen [...] Work [distance (m) x body wt (kg)]: 19523 kg.m (normal >60,000kg.m) Oxygen required to maintain [...] Vitamin D deficiency, Osteopenia of multiple sites. Splicing Supervisor/Model: [employer] SL (S/N [id number]) Facility LSC value of 0.022 for the [...] Haroon Lund M.D. MF: ALBERT Report ID: [id number] Reading Location: [place] [address] Procedure Note Haroon Lund MD - 12/27/2024 EXAM DESCRIPTION: DEXA AXIAL SKELETON BONE DENSITY 1 OR MORE SITES REASON FOR STUDY: 79 y/o year old M with given history of: vitamin d defiency Screening. Vitamin D deficiency, Osteopenia of multiple sites. Splicing Supervisor/Model: [employer] (S/N [id number]) Facility LSC value of 0.022 for the [...] Haroon Lund M.D. MF: ALBERT Report ID: [id number] Reading Location: [place] [address] Bharati Zamora MD [facility] DXA PROCEDURES Final Result * eGFR (12/24/2024 [...] MD LAB BLOOD ORDERABLES Final Resul t ALEXISTRISHA MARILYN ([place]) 1 [facility] [employer] [place] [address] * Vitamin D 25 hydroxy (12/24/2024 11:57 AM CDT) Vitamin D 25-OH 37 30 - 80 ng/mL Blood 12/24/2024 11:5 7 AM CDT 12/24/2024 12:02 PM CDT us Bharati Zamora MD LAB BLOOD ORDERABLES Final Resul t Performing Organization Address City/[facility]/ZIP Co de Phone Number [facility] ([place]) [address] [place] [address] [place] [address] * Basic metabolic panel (12/24/2024 11:57 AM CDT) Sodium 137 135 - 145 mmol/L Potassium, pl 3.9 3.3 - 4.9 mmol/L [facility] ([place]) Chloride 100 97 - 110 mmol/L [facility] ([place]) CO2 25 22 - 32 mmol/L [facility] ([place]) Anion gap 12 2 - 15 mmol/L [facility] ([place]) BUN 11 6 - 25 mg/dL [facility] ([place]) Creatinine 1.18 0.80 - 1.30 mg/dL [facility] ([place]) Glucose 141 70 - 199 mg/dL [facility] ([place]) [...] Calcium 8.5 8.5 - 10.3 mg/dL [facility] ([place]) Blood 12/24/2024 11:5 7 AM CDT 12/24/2024 12:02 PM CDT us Bharati Zamora MD LAB BLOOD ORDERABLES Final Resul t Performing Organization Address City/[facility]/ZIP Co de Phone Number [facility] [place]) 1 [facility] [place] [address] * Hepatitis C antibody Blood (08/19/2024 10:22 AM CUTTER HOT KNIFE) Hep C Ab Nonreactive Nonreactive Comment: Interpretive [...] last revised on 2019. Testing performed by: [facility], [address] [place] [address], [place]., [address] Blood 08/19/2024 10:2 2 AM CUTTER HOT KNIFE 08/19/2024 5:19 PM CUTTER HOT KNIFE us Rufus Candelario MD LAB MICROBIOLOGY - GENERA L ORDERABLES Final Result Performing Organization Address City/[facility]/ZIP Co de Phone Number [facility] ([place]) 1 [facility] [place] [address] from Last 3 Months or Most Recently Relevant to Health Maintenance Insurance MEDICARE MEDICARE [facility] MEDICARE Advance Directives For more information, please contact: [phone] * Full Code (Latest Code Status on File) Date Activated Date Inactivated Comments 12/10/2023 5:44 PM 12/16/2023 10:07 PM * Full Code Date Activated Date Inactivated Comments 10/17/2023 10:30 AM 10/18/2023 5:35 AM Care Teams Supervisor In Circuit Testing Relationship Specialty Start Date End Date Rufus Candelario [place] [address] PCP - General Family Med
--- OUTSIDE RECORDS SUMMARY | 2025-02-23 12:10 | XMS_ITS | Encounter Summary ---
Author Organization [facility] Address [address] [place] [address] Phone Care Team Providers Care Information Technology Manager Name Role Phone Unknown, Notinfile Primary Care Provider Unavail Rufus Mack MD Primary Care Provider [phone] Coby Adler RN Unavailable [phone] Encounter Details Date Type Department Care Team [...] COVID: Suspected 12/10/2023 12/10/2023 12/10/2023 8:28 PM CARBON CLEANER Rhino/Enterovirus 12/10/2023 12/10/2023 12/17/2023 3:05 AM CDT documented as of this encounter Care Teams Information Technology Manager Relationship Specialty Start Date End Date Unknown, Notinfile PCP - General 01/24/23 04/14/23 Rufus Candelario MD [address] [place] [address] PCP - General Family Medicine 04/15/23 Coby Adler, RN [address] [address] [facility] Outpatient Chief Scientific Officer 12/17/23 12/17/23 documented as of this encounter
--- OUTSIDE RECORDS SUMMARY | 2025-02-23 12:10 | XMS_ITS | Encounter Summary ---
Author Organization [facility] Address [address] [place] [address] Phone Care Team Providers Care Plastic Molding Operator Name Role Phone Unknown, Notinfile Primary Care Provider Unavail Rufus Mack MD Primary Care Provider [phone] Coby Adler RN Unavailable Encounter Details Date Type Department Care Team [...] COVID: Suspected 12/10/2023 12/10/2023 12/10/2023 8:28 PM HVAC SALES REPRESENTATIVE Rhino/Enterovirus 12/10/2023 12/10/2023 12/17/2023 3:05 AM CDT documented as of this encounter Care Teams Plastic Molding Operator Relationship Specialty Start Date End Date Unknown, Notinfile PCP - General 01/24/23 04/14/23 Rufus Candelario MD [address] [place] [address] PCP - General Family Medicine 04/15/23 Coby Adler, RN [address] [address] [facility] Outpatient Missile Pad Mechanic 12/17/23 12/17/23 documented as of this encounter
--- OUTSIDE RECORDS SUMMARY | 2025-02-23 12:10 | XMS_ITS | Encounter Summary ---
Author Organization [facility] Address [address] [place] [address] Phone Care Team Providers Care Mortgage Manager Name Role Phone Unknown, Notinfile Primary Care Provider Unavail Rufus Mack MD Primary Care Provider [phone] Coby Adler RN Unavailable [phone] Encounter Details Date Type Department Care Team [...] COVID: Suspected 12/10/2023 12/10/2023 12/10/2023 8:28 PM TEST LAB TECHNICIAN Rhino/Enterovirus 12/10/2023 12/10/2023 12/17/2023 3:05 AM CDT documented as of this encounter Care Teams Mortgage Manager Relationship Specialty Start Date End Date Unknown, Notinfile PCP - General 01/24/23 04/14/23 Rufus Candelario MD [address] [place] [address] PCP - General Family Medicine 04/15/23 Coby Adler, RN [address] [address] [facility] Outpatient Manager Drug 12/17/23 12/17/23 documented as of this encounter
--- OUTSIDE RECORDS SUMMARY | 2025-02-23 12:10 | XMS_ITS | Encounter Summary ---
Author Organization [facility] Address [address] [place] [address] Phone Care Team Providers Care Polymerization Kettle Operator Name Role Phone Unknown, Notinfile Primary Care Provider Unavail Rufus Mack MD Primary Care Provider [phone] Coby Adler RN Unavailable [phone] Encounter Details Date Type Department Care Team [...] COVID: Suspected 12/10/2023 12/10/2023 12/10/2023 8:28 PM VEHICLE CHECK IN CLERK Rhino/Enterovirus 12/10/2023 12/10/2023 12/17/2023 3:05 AM CDT documented as of this encounter Care Teams Polymerization Kettle Operator Relationship Specialty Start Date End Date Unknown, Notinfile PCP - General 01/24/23 04/14/23 Rufus Candelario MD [address] [place] [address] PCP - General Family Medicine 04/15/23 Coby Adler, RN [address] [address] [facility] Outpatient Group Home Supervisor 12/17/23 12/17/23 documented as of this encounter
--- OUTSIDE RECORDS SUMMARY | 2025-02-23 12:10 | XMS_ITS | Encounter Summary ---
Author Organization [facility] Address [address] [place] [address] Phone Care Team Providers Care Environmental Solutions Engineer Name Role Phone Unknown, Notinfile Primary Care Provider Unavail Rufus Mack MD Primary Care Provider [phone] Coby Adler RN Unavailable Encounter Details Date [...] COVID: Suspected 12/10/2023 12/10/2023 12/10/2023 8:28 PM PELLET PREPARATION OPERATOR Rhino/Enterovirus 12/10/2023 12/10/2023 12/17/2023 3:05 AM CDT documented as of this encounter Care Teams Environmental Solutions Engineer Relationship Specialty Start Date End Date Unknown, Notinfile PCP - General 01/24/23 04/14/23 Rufus Candelario MD [address] [place] [address] PCP - General Family Medicine 04/15/23 Coby Adler, RN [address] [address] [facility]ying [employer] [facility] 12/17/23 12/17/23 documented as of this encounter
--- NOTE | 2025-02-23 12:48 | ED_ITS ---
HPI - General Adult General Chief complaint: Back Pain/Injury Stated complaint: right sided back pain Time Seen by Provider: 02/23/25 11:58 History of Present Illness HPI narrative: 79-year-old male present to the emergency department for evaluation for right flank pain. Patient states the pain started in the right flank and does radiate around to the right upper quadrant. Patient is having difficulty finding a comfortable position and patient was standing at time evaluation. Patient denies any radiation of the pain to his genitals. Patient does have a history of oxygen requirement and is typically on multiple L at home. Patient is saturating at 90% on room air but patient is declining any oxygen here. Patient denies any prior history of kidney stones. Related Data Home Medications Medication Instructions Recorded Confirmed Last Taken Type albuterol sulfate 90 mcg/actuation 2 puff inhalation PRN 02/23/25 02/23/25 Unknown History aerosol inhaler (Ventolin HFA) allopurinol 100 mg tablet 100 mg PO DAILY 02/23/25 02/23/25 02/23/25 History amlodipine 10 mg tablet 10 mg PO DAILY 02/23/25 02/23/25 02/23/25 History duloxetine 60 mg capsule,delayed 60 mg PO DAILY 02/23/25 02/23/25 02/23/25 History release fluticasone fur. 200 mcg-umeclid 1 inh inhalation DAILY 02/23/25 02/23/25 02/23/25 History 62.5 mcg-vilant 25 mcg inhalat.powder (Trelegy Ellipta) gabapentin 600 mg tablet 600 mg PO TID 02/23/25 02/23/25 02/23/25 History oxycodone 20 mg tablet 20 mg PO Q6H PRN pain 02/23/25 02/23/25 02/23/25 History rosuvastatin 5 mg tablet 5 mg PO HS 02/23/25 02/23/25 02/22/25 History vitamin B complex 1 cap PO DAILY 02/23/25 02/23/25 02/23/25 History vitamin d 3 1 cap PO DAILY 02/23/25 02/23/25 02/23/25 History Allergies Allergy/AdvReac Type Severity Reaction Status Date / Time No Known Allergies Allergy Verified 02/23/25 18:22 Review of Systems 2 Review of Systems: All systems reviewed & are unremarkable except as noted in HPI and below PMFSH Past Medical History Medical History Kidney stones Social History Social History Smoking status: Former smoker Smoking end date: 08/07/02 Alcohol intake: current Drinks per week: 5 Substance use: never Substance use type: does not use Do You Feel Safe in your Home?: Yes Lack of Transportation: No Lack of Food: Never True Current Housing: I Have Housing Concerned About Future Housing: No Difficulty Paying Gas/Electric Bills: No Difficulty Paying for Meds: No Currently Unemployed: YES Education: Decline to Answer Difficulty w/ Childcare or Family Care: No Spiritual care concerns: No Exam 2 Narrative: APPEARANCE: Uncomfortable appear HEAD: normocephalic, atraumatic. EYES: PERRLA/EOMI, conjunctivae clear. NOSE: Normal no drainage EARS:TMS clear with good light reflex. THROAT: Pharynx clear, no exudate. NECK: Supple. No adenopathy, no masses. RESPIRATORY: Airway patent, respirations nonlabored. Clear to auscultation bilaterally, no rales, rhonchi, wheezing. CARDIOVASCULAR: Regular rate and rhythm without murmurs rubs or gallops. ABDOMINAL: Right flank tenderness to palpation, no right upper quadrant tenderness to palpation MUSCULOSKELETAL: Moves all extremities. Strength/ROM intact, No edema, No calf tenderness. NEURO: Alert. Cranial nerves II through XII intact. Grossly intact SKIN: Warm, dry. Normal Color Course Vital Signs Vital signs: Vital Signs Temperature 97.6 F 02/23/25 10:43 Pulse Rate 88 02/23/25 10:43 Respiratory Rate 18 02/23/25 10:43 Blood Pressure 117/70 02/23/25 10:43 Pulse Oximetry 90 02/23/25 10:43 Oxygen Delivery Room Air 02/23/25 10:43 Temperature 97.8 F 02/23/25 20:13 Pulse Rate 86 02/23/25 20:13 Respiratory Rate 16 02/23/25 20:13 Blood Pressure 111/60 02/23/25 20:13 Pulse Oximetry 94 02/23/25 20:13 Oxygen Delivery Room Air 02/23/25 10:43 Medical Decision Making [facility] Narrative Medical decision making narrative: 79-year-old male presents emergency department for evaluation for right flank pain. Patient is currently afebrile but does have a leukocytosis of 11.2 and hemoglobin of 14.0. INR is 1.0. Patient has mildly elevated creatinine of 1.64 and patient was treated with a L of lactated Ringer's. Patient did have some hematuria on his urinary analysis with no evidence of infection. Patient's CT scan does show I have 5 mm right-sided ureteral calculi. Patient was initially treated with IV Dilaudid without significant improvement. Patient was treated with Toradol Flomax and Zofran and states his pain is down to 1. Patient will be discharged home with Flomax [place] and Zofran with instructions have close follow-up with Urology. Patient does take 20 mg OxyContin every 6 hours. I cannot increase his occasions for pain control for home med. Patient is unable to take NSAIDs. Patient was uncomfortable with the plan for discharge to home feeling that his pain would return and would be uncontrollable. Patient did not want to do a trial at home and return if pain worsened he prefers to stay and was advised that the kidney stone would not necessarily be removed but that a stent may be placed tomorrow. Patient was evaluated by Dr. Newton and patient will be going to the operating room and the morning at approximately 7:30 a.m. to have the stent placed. Patient will need to be made NPO after midnight. Differential Diagnosis Differential Diagnosis: Kidney stone, UTI, colitis, diverticulitis Vital Signs Vital Signs: Vital Signs Temperature 97.6 F 02/23/25 10:43 Pulse Rate 88 02/23/25 10:43 Respiratory Rate 18 02/23/25 10:43 Blood Pressure 117/70 02/23/25 10:43 Pulse Oximetry 90 02/23/25 10:43 Oxygen Delivery Room Air 02/23/25 10:43 Temperature 97.8 F 02/23/25 20:13 Pulse Rate 86 02/23/25 20:13 Respiratory Rate 16 02/23/25 20:13 Blood Pressure 111/60 02/23/25 20:13 Pulse Oximetry 94 02/23/25 20:13 Oxygen Delivery Room Air 02/23/25 10:43 Lab Data Lab results reviewed: Yes I reviewed the patient's lab results. 02/23/25 12:57 02/23/25 12:57 Labs: Lab Results 02/23/25 02/23/25 Range/Units 12:57 12:58 WBC 11.2 H (4.5-10.0) K/mm3 RBC 4.43 L (4.6-6.20) M/mm3 Hgb 14.0 (14.0-18.0) g/dL Hct 42.1 (42.0-52.0) % MCV 95.0 (80-100) fl MCH 31.6 (26-34) pg MCHC 33.3 (32-36) g/dl RDW 13.2 (11.5-14.5) % Plt Count 384 H (150-375) k/mm3 MPV 8.7 (7.4-10.4) fl Immature Gran % (Auto) 0.4 (0-0.5) % Neut % (Auto) 83.7 H (45.5-73.1) % Lymph % (Auto) 9.8 L (18.3-44.2) % [place] % (Auto) 5.3 (2.6-8.5) % Eos % (Auto) 0.4 (0-4.4) % Baso % (Auto) 0.4 (0.2-1.2) % Lymph # (Auto) 1.10 (0.9-3.2) K/mm3 [place] # (Auto) 0.6 (0.1-0.6) K/mm3 Eos # (Auto) 0.1 (0-0.3) K/mm3 Baso # (Auto) 0.1 (0.0-0.1) K/mm3 Abs Immat Gran (auto) 0.04 H (0.00-0.031) K/mm3 Absolute Neuts (auto) 9.4 H (1.3-6.7) K/mm3 Absolute Nucleated RBC 0.000 (0.0-0.012) K/mm3 Nucleated RBC % 0.0 (0.0-0.2) % PT 13.5 (11.1-14.7) Seconds INR 1.0 APTT 29.0 (22.3-36.8) Seconds Sodium 136 L (137-145) mmol/L Potassium 4.1 (3.4-5.0) mmol/L Chloride 101 (98-107) mmol/L Carbon Dioxide 27 (22-30) mmol/L Anion Gap 8 (4-12) mmol/L BUN 18 (9-20) mg/dL Creatinine 1.64 H (0.7-1.3) mg/dL Estim Creat Clear Calc 36 ml/min Estimated GFR 41 L (59 - ) Glucose 114 H (65-110) mg/dL Calcium 8.7 (8.4-10.2) mg/dL Total Bilirubin 0.6 (0.2-1.3) mg/dL AST 33 (17-59) U/L ALT 23 (6-50) U/L Alkaline Phosphatase 131 H (38-126) U/L Total Protein 8.0 (6.3-8.2) g/dL Albumin 4.4 (3.5-5.1) g/dL Urine Color Yellow (Yellow) Urine Appearance Clear (Clear) Urine pH 6.5 (5.0-9.0) Ur Specific [place] 1.015 (1.001-1.035) Urine Protein 1+ H (Negative) mg/dL Urine Glucose (UA) Negative (Negative) mg/dL Urine Ketones Negative (Negative) mg/dL Ur Blood (Man) 3+ H (Negative) Urine Nitrate Negative (Negative) Urine Bilirubin Negative (Negative) Urine Urobilinogen 1.0 (<2.0) mg/dL Leukocyte Esterase Rfl Negative (Negative) [place]/UL Urine RBC >100 H (0-2) /hpf Urine WBC 0-5 (0-3) /hpf Ur Squamous Epith Cells None seen (Few) /hpf Urine Bacteria None seen /hpf Urine Casts 0-2 Imaging Data Radiologist's impression: Impressions Abdomen/Pelvis CT 02/23/25 13:19 IMPRESSION: 1. No evidence of appendicitis, diverticulitis or intestinal obstruction. 2. Stone in the right upper ureter with right hydronephrotic changes. Right kidney stones. 3. Left renal cyst. Discharge Plan Discharge Clinical Impression: Calculi, ureter Patient Disposition: Still a Patient Condition: Stable
--- NOTE | 2025-02-23 12:58 | PC.NURSE ---
Pt taken to CT
[2025-02-23 13:16] LABS: Basophils Absolute Auto 0.1 K/mm3 (0.0-0.1); Basophils Percent Auto 0.4 % (0.2-1.2); Eosinophils Absolute Auto 0.1 K/mm3 (0-0.3); Eosinophils Percent Auto 0.4 % (0-4.4); Hematocrit 42.1 % (42.0-52.0); Immature Granulocyte Absolute 0.04 K/mm3 (0.00-0.031); Immature Granulocyte Percent A 0.4 % (0-0.5); Lymphocytes Percent Auto 9.8 % (18.3-44.2); Mean Corpuscular HGB Conc 33.3 g/dl (32-36); Mean Corpuscular Hemoglobin 31.6 pg (26-34); Mean Platelet Volume 8.7 fl (7.4-10.4); Monocytes Absolute Auto 0.6 K/mm3 (0.1-0.6); Monocytes Percent Auto 5.3 % (2.6-8.5); Neutrophils Absolute Auto 9.4 K/mm3 (1.3-6.7); Neutrophils Percent Auto 83.7 % (45.5-73.1); Platelet Count Result 384 k/mm3 (150-375); Red Blood Count 4.43 M/mm3 (4.6-6.20); Red Cell Distribution Width 13.2 % (11.5-14.5); White Blood Count 11.2 K/mm3 (4.5-10.0)
[2025-02-23 13:24] LABS: Add Urine Microscopic? YES; Appearance Urine Clear (Clear); Bacteria Urine None Seen /hpf; Bilirubin Urine Negative (Negative); Blood Urine 3+ (Negative); Color Urine Yellow (Yellow); Glucose Urine UA Negative (Negative); Ketones Urine Negative (Negative); Leukocyte Esterase Ur Negative LEU/UL (Negative); Nitrate Urine Negative (Negative); Non Pathogenic Casts 0-2; Protein Urine 1+ mg/dL (Negative); RBC Urine >100 /hpf (0-2); Specific Grav Ur 1.015 (1.001-1.035); Squamous Epithelial Cell Urine None Seen /hpf (Few); WBC Urine 0-5 /hpf (0-3); pH Urine 6.5 (5.0-9.0)
[2025-02-23] MEDS: HYDROmorphone HCL INJ (*CRX) 2 MG/ML VIAL 1 MG IV PUSH (13:24)
[2025-02-23 13:25] LABS: Alanine Aminotransferase 23 U/L (6-50); Albumin Level 4.4 g/dL (3.5-5.1); Alkaline Phosphatase 131 U/L (38-126); Anion Gap 8 mmol/L (4-12); Aspartate Amino Transferase 33 U/L (17-59); Bilirubin,Total 0.6 mg/dL (0.2-1.3); Blood Urea Nitrogen 18 mg/dL (9-20); Calcium 8.7 mg/dL (8.4-10.2); Carbon Dioxide 27 mmol/L (22-30); Chloride 101 mmol/L (98-107); Estimated CRCL calculation 36 ml/min; Estimated Glomerular Filt Rate 41; Glucose 114 mg/dL (65-110); Potassium 4.1 mmol/L (3.4-5.0); Sodium 136 mmol/L (137-145)
[2025-02-23 13:34] LABS: Prothrombin Time 13.5 Seconds (11.1-14.7)
[2025-02-23] MEDS: LACTATED RINGERS 1,000 ML 999 ML IV CONT (13:38)
[2025-02-23] MEDS: ONDANSETRON INJ 4 MG/2 ML VIAL IV PUSH ×2 (14:22→20:05)
[2025-02-23] MEDS: KETOROLAC 30 MG/ML VIAL (*BKC) IV PUSH (14:22)
[2025-02-23] MEDS: TAMSULOSIN HCL 0.4 MG CAPSULE PO (14:23)
--- NOTE | 2025-02-23 15:04 | PC.NURSE ---
report given to Jess. BETANCOURT
--- NOTE | 2025-02-23 16:19 | PM.IMHP ---
H&P: HPI History of Present Illness Date/Time: 02/23/25 16:19 Chief Complaint: Flank Pain Narrative: 79 y/o M with PMH of COPD and chronic respiratory failure on supplemental O2 (normally on 4L, arrived on room air). The patient presents here with right-sided flank pain. He reports onset last night. He describes the pain as sharp, radiating into the lower right side of his abdomen, and constant. Reports mild nausea when the pain medication wears off. He denies dysuria, urinary frequency, urinary hesitancy, hematuria, vomiting, fever or chills. He reports no previous history of kidney stones. He arrived 90% on room air, he reports a history of supplemental oxygen requirement due to COPD and reports he is supposed to wear 4L NC at baseline. Offered supplemental O2 in the ED, patient refused stating to the RN that he did not need it right now. Initial VS at presentation: 97.6° F, HR 88, RR 18, 117/70, and 90% on RA. ED workup showed: WBC 11.2, normal hemoglobin, normal coags, creatinine 1.64 and GFR 41 (previously 1.07 and GFR >60), and UA showed 1+ protein/3+ blood/greater than [address] of the abdomen/pelvis showed stone in the right upper ureter with right hydronephrotic changes, right kidney stones, and a left renal cyst. Review of Systems Review of Systems: All systems reviewed & are unremarkable except as noted in HPI and below PMFSH Past Medical History Medical History (Updated 02/23/25 @ 22:41 by Any Santizo APRN) Gout HTN (hypertension) HLD (hyperlipidemia) Chronic respiratory failure COPD (chronic obstructive pulmonary disease) Surgical History Surgical History (Updated 02/23/25 @ 22:40 by Any Santizo APRN) History of tonsillectomy History of lumbar surgery L4 fusion Social History Social History Smoking status: Former smoker Smoking end date: 08/07/02 Alcohol intake: current Drinks per week: 5 Substance use: never Substance use type: does not use Do You Feel Safe in your Home?: Yes Lack of Transportation: No Lack of Food: Never True Current Housing: I Have Housing Concerned About Future Housing: No Difficulty Paying Gas/Electric Bills: No Difficulty Paying for Meds: No Currently Unemployed: YES Education: Decline to Answer Difficulty w/ Childcare or Family Care: No Spiritual care concerns: No Meds Home Medications and Allergies Home Medications Medication Instructions Recorded Confirmed Type albuterol sulfate 90 mcg/actuation 2 puff inhalation PRN 02/23/25 02/23/25 History aerosol inhaler (Ventolin HFA) allopurinol 100 mg tablet 100 mg PO DAILY 02/23/25 02/23/25 History amlodipine 10 mg tablet 10 mg PO DAILY 02/23/25 02/23/25 History duloxetine 60 mg capsule,delayed 60 mg PO DAILY 02/23/25 02/23/25 History release fluticasone fur. 200 mcg-umeclid 1 inh inhalation DAILY 02/23/25 02/23/25 History 62.5 mcg-vilant 25 mcg inhalat.powder (Trelegy Ellipta) gabapentin 600 mg tablet 600 mg PO TID 02/23/25 02/23/25 History hydrocodone 5 mg-acetaminophen 325 1 tablet PO Q12H PRN pain #14 tabs 02/23/25 Rx mg tablet ondansetron 4 mg disintegrating 4 mg PO Q8H PRN nausea and 02/23/25 Rx tablet vomiting #14 tabs oxycodone 20 mg tablet 20 mg PO Q6H PRN pain 02/23/25 02/23/25 History rosuvastatin 5 mg tablet 5 mg PO HS 02/23/25 02/23/25 History tamsulosin 0.4 mg capsule (Flomax) 0.4 mg PO DAILY 14 days #14 caps 02/23/25 Rx vitamin B complex 1 cap PO DAILY 02/23/25 02/23/25 History vitamin d 3 1 cap PO DAILY 02/23/25 02/23/25 History Allergies Allergy/AdvReac Type Severity Reaction Status Date / Time No Known Allergies Allergy Verified 02/23/25 18:22 Vital Signs Vital Signs - 24 hr 02/23/25 10:43 02/23/25 13:26 02/23/25 13:39 Temperature 97.6 F Pulse Rate 88 72 71 Respiratory Rate 18 16 18 Blood Pressure 117/70 165/93 H 165/71 H Pulse Oximetry 90 89 L 97 Oxygen Delivery Room Air 02/23/25 13:45 02/23/25 14:00 02/23/25 14:15 Temperature Pulse Rate 72 82 86 Respiratory Rate 18 18 17 Blood Pressure 163/80 H 147/75 H 177/93 H Pulse Oximetry 97 98 95 Oxygen Delivery 02/23/25 14:30 02/23/25 14:45 Temperature Pulse Rate 75 76 Respiratory Rate 16 16 Blood Pressure 174/86 H 153/76 H Pulse Oximetry 97 96 Oxygen Delivery Exam Const: General: comfortable and no acute distress Other: , male, nontoxic appearance HENMT: Face/Nose/Sinus: Normal nares present Mouth: Yes moist mucous membranes Eyes: General: appearance normal, both eyes and all related structures Sclera: sclerae normal Pupils: Equal, round and reactive pupils present EOM: EOMs intact bilaterally Resp: Effort & Inspection: normal respiratory effort Auscultation: clear to auscultation bilaterally Cardio: Rate: regular rate Rhythm: regular rhythm Other: S1-S2 present without murmur, rub, ectopy GI: Other: Mild lower abdominal tenderness. No abdominal distension, soft, normoactive bowel sounds in all quadrants. Skin: General skin exam: normal color and no rashes or lesions noted Wounds: no wounds Neuro: Speech: normal speech Motor exam (neuro): 5/5 motor strength present throughout Sensory Exam: normal sensation Other: A&O x4 Extrem: General: normal to inspection Psych: Mental Status: mental status grossly normal Affect: normal affect Other: Good insight and judgment, pleasant H&P: Results Labs Labs: Short CBC 02/23/25 Range/Units 12:57 WBC 11.2 H (4.5-10.0) K/mm3 Hgb 14.0 (14.0-18.0) g/dL Hct 42.1 (42.0-52.0) % Plt Count 384 H (150-375) k/mm3 BMP 02/23/25 12:57 Sodium 136 L Potassium 4.1 Chloride 101 Carbon Dioxide 27 BUN 18 Creatinine 1.64 H Glucose 114 H Calcium 8.7 Liver Function 02/23/25 Range/Units 12:57 Total Bilirubin 0.6 (0.2-1.3) mg/dL AST 33 (17-59) U/L ALT 23 (6-50) U/L Alkaline Phosphatase 131 H (38-126) U/L Albumin 4.4 (3.5-5.1) g/dL Urine 05/20/25 Range/Units 12:57 Urine Color Yellow (Yellow) Urine Appearance Clear (Clear) Urine pH 6.5 (5.0-9.0) Ur Specific [place] 1.015 (1.001-1.035) Urine Protein 1+ H (Negative) mg/dL Urine Glucose (UA) Negative (Negative) mg/dL Assessment and Plan Assessment and plan (1) Right ureteral calculus: Code(s): N20.1 - Calculus of ureter Status: Acute Assessment and Plan: - CT abd/pelvis: 1. No evidence of appendicitis, diverticulitis or intestinal obstruction. 2. Stone in the right upper ureter with right hydronephrotic changes. Right kidney stones. 3. Left renal cyst. - nephrology consulted, plan for cystoscopy tomorrow. NPO midnight. - analgesics p.r.n. - UA showed no indicators of infection - IV fluids, ALICE secondary to kidney stones (2) ALICE (acute kidney injury): Code(s): N17.9 - Acute kidney failure, unspecified Status: Acute Assessment and Plan: - creatinine 0.64 and GFR 41, previously 1.07 and GFR >60 - injury secondary to kidney stone, plan for cysto tomorrow. IV fluids. no indicators for UTI. If no improvement with stent and IV fluids, consider further workup and consultation. - trend renal function - trend electrolytes, correct as needed (3) HTN (hypertension): Qualifiers: Hypertension type: primary hypertension Qualified Code(s): I10 - Essential (primary) hypertension Code(s): I10 - Essential (primary) hypertension Status: Chronic Assessment and Plan: - chronic, currently 111/60 - continue home medications: Amlodipine - monitor Plan Diet: Regular, NPO at midnight GI Prophylaxis: Not currently indicated DVT Prophylaxis: SCDs IV fluids: LR 100 mL/hr x2L Lines/Tubes: Peripheral IV Code Status: Full code Quality VTE Prophylaxis VTE prophylaxis: mechanical ordered Hospitalist MIPS Advance Care Plan I have confirmed that the patient's Advanced Care Plan is present, code status is documented, or surrogate decision maker is listed in patient medical record.: Yes Medication Reconciliation I have utilized all available resources to obtain, update and review the patients current medications (includes all prescriptions, OTC, herbals, cannabis, and nutritional supplements).: Yes
--- NOTE | 2025-02-23 16:29 | WPDURCON ---
Assessment and Plan Assessment and plan (1) Right ureteral calculus: Code(s): N20.1 - Calculus of ureter Status: Acute Assessment and Plan: Patient will be admitted for pain control. He will be made NPO after midnight. Plan is for cystoscopy, right retrograde, right ureteroscopy with possible stone extraction, stent placement in the morning. He is aware for unable to place our ureteral scopes and he would get a stent at the minimum and manage the stone as an outpatient at a later point time. Urology Consult Note HPI Date Seen: 02/23/25 Time Seen: 16:00 Primary Care Provider: Rufus Candelario, Consult Narrative Reason for consult: Right proximal ureteral calculus Narrative: Norman Fry Jr. is a 79 year old male who presented to the emergency room with right renal colic. He was found to have a 5 mm proximal right ureteral stone. They were not comfortable sending him home with this pain issues. He is thus being admitted for further management. Denies any prior history of stones or fevers. Review of Systems Review of Systems: All systems reviewed & are unremarkable except as noted in HPI and below Meds Home Medications and Allergies Home Medications Medication Instructions Recorded Confirmed Type albuterol sulfate 90 mcg/actuation 2 puff inhalation PRN 02/23/25 02/23/25 History aerosol inhaler (Ventolin HFA) allopurinol 100 mg tablet 100 mg PO DAILY 02/23/25 02/23/25 History amlodipine 10 mg tablet 10 mg PO DAILY 02/23/25 02/23/25 History duloxetine 60 mg capsule,delayed 60 mg PO DAILY 02/23/25 02/23/25 History release fluticasone fur. 200 mcg-umeclid 1 inh inhalation DAILY 02/23/25 02/23/25 History 62.5 mcg-vilant 25 mcg inhalat.powder (Trelegy Ellipta) gabapentin 600 mg tablet 600 mg PO TID 02/23/25 02/23/25 History hydrocodone 5 mg-acetaminophen 325 1 tablet PO Q12H PRN pain #14 tabs 02/23/25 Rx mg tablet ondansetron 4 mg disintegrating 4 mg PO Q8H PRN nausea and 02/23/25 Rx tablet vomiting #14 tabs oxycodone 20 mg tablet 20 mg PO Q6H PRN pain 02/23/25 02/23/25 History rosuvastatin 5 mg tablet 5 mg PO HS 02/23/25 02/23/25 History tamsulosin 0.4 mg capsule (Flomax) 0.4 mg PO DAILY 14 days #14 caps 02/23/25 Rx vitamin B complex 1 cap PO DAILY 02/23/25 02/23/25 History vitamin d 3 1 cap PO DAILY 02/23/25 02/23/25 History Allergies Allergy/AdvReac Type Severity Reaction Status Date / Time No Known Allergies Allergy Verified 02/23/25 11:18 Vital Signs Vital Signs - 24 hr 02/23/25 10:43 02/23/25 13:26 02/23/25 13:39 Temperature 36.4 C Pulse Rate 88 72 71 Respiratory Rate 18 16 18 Blood Pressure 117/70 165/93 H 165/71 H Pulse Oximetry 90 89 L 97 Oxygen Delivery Room Air 02/23/25 13:45 02/23/25 14:00 02/23/25 14:15 Temperature Pulse Rate 72 82 86 Respiratory Rate 18 18 17 Blood Pressure 163/80 H 147/75 H 177/93 H Pulse Oximetry 97 98 95 Oxygen Delivery 02/23/25 14:30 02/23/25 14:45 02/23/25 16:21 Temperature Pulse Rate 75 76 75 Respiratory Rate 16 16 18 Blood Pressure 174/86 H 153/76 H 109/67 Pulse Oximetry 97 96 97 Oxygen Delivery Exam Const: General: cooperative, alert and awake Resp: Effort & Inspection: normal respiratory effort Cardio: Rate: regular rate Rhythm: regular rhythm Results Labs 02/23/25 12:57 02/23/25 12:57 Labs: Short CBC 02/23/25 Range/Units 12:57 WBC 11.2 H (4.5-10.0) K/mm3 Hgb 14.0 (14.0-18.0) g/dL Hct 42.1 (42.0-52.0) % Plt Count 384 H (150-375) k/mm3 BMP 02/23/25 12:57 Sodium 136 L Potassium 4.1 Chloride 101 Carbon Dioxide 27 BUN 18 Creatinine 1.64 H Glucose 114 H Calcium 8.7 Liver Function 02/23/25 Range/Units 12:57 Total Bilirubin 0.6 (0.2-1.3) mg/dL AST 33 (17-59) U/L ALT 23 (6-50) U/L Alkaline Phosphatase 131 H (38-126) U/L Albumin 4.4 (3.5-5.1) g/dL Urine 02/23/25 Range/Units 12:57 Urine Color Yellow (Yellow) Urine Appearance Clear (Clear) Urine pH 6.5 (5.0-9.0) Ur Specific [place] 1.015 (1.001-1.035) Urine Protein 1+ H (Negative) mg/dL Urine Glucose (UA) Negative (Negative) mg/dL
--- NOTE | 2025-02-23 18:00 | ADMGEN ---
This patient, Norman Fry Jr., was admitted to [facility] Surg Room 305-02. Patient/family oriented to hospital policies and general routines including ID bracelet, bed and alarms, visiting hours, pain management, procedures, bathroom and other care routines, personal items, smoking policy, room service/diet, and visiting hours. Information on how to activate the Rapid Response Team has been discussed. Patient/Family are encouraged to report perceived risks to care and to ask questions if they do not understand what they are told or what they should do.
[2025-02-23] MEDS: ACETAMINOPHEN 325 MG TABLET 650 MG PO (20:05)
[2025-02-23] MEDS: LACTATED RINGERS 1,000 ML 100 ML IV CONT (20:06)
[2025-02-23] MEDS: HYDROmorphone HCL INJ (*CRX) 2 MG/ML VIAL 0.5 MG IV PUSH (21:18)
[2025-02-24] VITALS (13 sets, daily range): BP systolic 137–162; BP diastolic 64–94; PULSE 62–92; RESP 10–20; TEMP 36.2–36.8; O2SAT 92–100
[2025-02-24] MEDS: oxyCODONE HCL (*CRX) 5 MG TAB IR 20 MG PO (00:05)
[2025-02-24] MEDS: HYDROmorphone HCL INJ (*CRX) 2 MG/ML VIAL 0.5 MG IV PUSH ×2 (01:05→05:06)
[2025-02-24] MEDS: ACETAMINOPHEN 325 MG TABLET 650 MG PO (04:10)
[2025-02-24] MEDS: LACTATED RINGERS 1,000 ML 100 ML IV CONT (05:11)
[2025-02-24 05:43] LABS: Basophils Percent Auto 0.3 % (0.2-1.2); Eosinophils Absolute Auto 0.2 K/mm3 (0-0.3); Hemoglobin 12.7 g/dL (14.0-18.0); Immature Granulocyte Absolute 0.05 K/mm3 (0.00-0.031); Immature Granulocyte Percent A 0.5 % (0-0.5); Lymphocytes Absolute Auto 1.15 K/mm3 (0.9-3.2); Lymphocytes Percent Auto 11.5 % (18.3-44.2); Mean Corpuscular HGB Conc 31.8 g/dl (32-36); Mean Corpuscular Hemoglobin 31.3 pg (26-34); Mean Corpuscular Volume 98.5 fl (80-100); Mean Platelet Volume 8.8 fl (7.4-10.4); Monocytes Percent Auto 10.1 % (2.6-8.5); Neutrophils Absolute Auto 7.6 K/mm3 (1.3-6.7); Neutrophils Percent Auto 75.6 % (45.5-73.1); Platelet Count Result 282 k/mm3 (150-375); Red Blood Count 4.06 M/mm3 (4.6-6.20); Red Cell Distribution Width 13.3 % (11.5-14.5)
[2025-02-24 05:55] LABS: Alanine Aminotransferase 18 U/L (6-50); Albumin Level 3.7 g/dL (3.5-5.1); Alkaline Phosphatase 102 U/L (38-126); Anion Gap 2 mmol/L (4-12); Aspartate Amino Transferase 29 U/L (17-59); Bilirubin,Total 0.7 mg/dL (0.2-1.3); Blood Urea Nitrogen 19 mg/dL (9-20); Calcium 8.3 mg/dL (8.4-10.2); Carbon Dioxide 32 mmol/L (22-30); Chloride 105 mmol/L (98-107); Estimated CRCL calculation 30 ml/min; Estimated Glomerular Filt Rate 32; Glucose 110 mg/dL (65-110); Potassium 5.2 mmol/L (3.4-5.0); Sodium 139 mmol/L (137-145)
[2025-02-24] MEDS: LACTATED RINGERS 1,000 ML 30 ML IV CONT (06:21)
--- NOTE | 2025-02-24 07:06 | WPDHPUPDATE1 ---
History and Physical Update Update Date/Time: 02/24/25 07:06 History and Physical has been reviewed, including an updated exam of the patient. There are NO changes in the patient's condition. Risks, benefits, and alternatives have been discussed and questions answered. Patient agrees to proceed with procedure.
--- NOTE | 2025-02-24 07:20 | P.PNAN_ITS ---
Anes - Initial Pre Proc Eval Procedure: Operation Date: 02/24/25 07:30 Proposed Procedures p Cystoscopy, Right Retrograde Pyelogram, Right Stent Placement, Possible Stone Extraction, Possible Holmium Laser - Mariano Newton MD Date/Time: 02/24/25 07:20 Surgeon: Nikos Jain MD Pre Op Diagnosis: Ureteral calculi Patient Data Age: 79 Gender: M Height: 1.83 m Weight: 80.5 kg Last Vital Signs Temp 36.5 C 02/24/25 06:21 Pulse 64 02/24/25 06:21 Resp 20 02/24/25 06:21 BP 137/73 02/24/25 06:21 Pulse Ox 92 02/24/25 06:21 O2 Del Method Nasal Cannula 02/24/25 06:21 O2 Flow Rate 4 02/24/25 06:21 Allergies Allergy/AdvReac Type Severity Reaction Status Date / Time No Known Allergies Allergy Verified 02/23/25 18:22 Home Medications Medication Instructions Recorded Confirmed Type albuterol sulfate 90 mcg/actuation 2 puff inhalation PRN 02/23/25 02/23/25 History aerosol inhaler (Ventolin HFA) allopurinol 100 mg tablet 100 mg PO DAILY 02/23/25 02/23/25 History amlodipine 10 mg tablet 10 mg PO DAILY 02/23/25 02/23/25 History duloxetine 60 mg capsule,delayed 60 mg PO DAILY 02/23/25 02/23/25 History release fluticasone fur. 200 mcg-umeclid 1 inh inhalation DAILY 02/23/25 02/23/25 History 62.5 mcg-vilant 25 mcg inhalat.powder (Trelegy Ellipta) gabapentin 600 mg tablet 600 mg PO TID 02/23/25 02/23/25 History hydrocodone 5 mg-acetaminophen 325 1 tablet PO Q12H PRN pain #14 tabs 02/23/25 Rx mg tablet ondansetron 4 mg disintegrating 4 mg PO Q8H PRN nausea and 02/23/25 Rx tablet vomiting #14 tabs oxycodone 20 mg tablet 20 mg PO Q6H PRN pain 02/23/25 02/23/25 History rosuvastatin 5 mg tablet 5 mg PO HS 02/23/25 02/23/25 History tamsulosin 0.4 mg capsule (Flomax) 0.4 mg PO DAILY 14 days #14 caps 02/23/25 Rx vitamin B complex 1 cap PO DAILY 02/23/25 02/23/25 History vitamin d 3 1 cap PO DAILY 02/23/25 02/23/25 History Laboratory Tests 02/23/25 02/23/25 02/24/25 12:57 12:58 05:31 WBC 11.2 H K/mm3 10.0 K/mm3 (4.5-10.0) (4.5-10.0) RBC 4.43 L M/mm3 4.06 L M/mm3 (4.6-6.20) (4.6-6.20) Hgb 14.0 g/dL 12.7 L g/dL (14.0-18.0) (14.0-18.0) Hct 42.1 % 40.0 L % (42.0-52.0) (42.0-52.0) MCV 95.0 fl 98.5 fl (80-100) (80-100) MCH 31.6 pg 31.3 pg (26-34) (26-34) MCHC 33.3 g/dl 31.8 L g/dl (32-36) (32-36) RDW 13.2 % 13.3 % (11.5-14.5) (11.5-14.5) Plt Count 384 H k/mm3 282 k/mm3 (150-375) (150-375) MPV 8.7 fl 8.8 fl (7.4-10.4) (7.4-10.4) Immature Gran % (Auto) 0.4 % 0.5 % (0-0.5) (0-0.5) Neut % (Auto) 83.7 H % 75.6 H % (45.5-73.1) (45.5-73.1) Lymph % (Auto) 9.8 L % 11.5 L % (18.3-44.2) (18.3-44.2) [place] % (Auto) 5.3 % 10.1 H % (2.6-8.5) (2.6-8.5) Eos % (Auto) 0.4 % 2.0 % (0-4.4) (0-4.4) Baso % (Auto) 0.4 % 0.3 % (0.2-1.2) (0.2-1.2) Lymph # (Auto) 1.10 K/mm3 1.15 K/mm3 (0.9-3.2) (0.9-3.2) [place] # (Auto) 0.6 K/mm3 1.0 H K/mm3 (0.1-0.6) (0.1-0.6) Eos # (Auto) 0.1 K/mm3 0.2 K/mm3 (0-0.3) (0-0.3) Baso # (Auto) 0.1 K/mm3 0.0 K/mm3 (0.0-0.1) (0.0-0.1) Abs Immat Gran (auto) 0.04 H K/mm3 0.05 H K/mm3 (0.00-0.031) (0.00-0.031) Absolute Neuts (auto) 9.4 H K/mm3 7.6 H K/mm3 (1.3-6.7) (1.3-6.7) Absolute Nucleated RBC 0.000 K/mm3 0.000 K/mm3 (0.0-0.012) (0.0-0.012) Nucleated RBC % 0.0 % 0.0 % (0.0-0.2) (0.0-0.2) PT 13.5 Seconds (11.1-14.7) INR 1.0 APTT 29.0 Seconds (22.3-36.8) Sodium 136 L mmol/L 139 mmol/L (137-145) (137-145) Potassium 4.1 mmol/L 5.2 H mmol/L (3.4-5.0) (3.4-5.0) Chloride 101 mmol/L 105 mmol/L (98-107) (98-107) Carbon Dioxide 27 mmol/L 32 H mmol/L (22-30) (22-30) Anion Gap 8 mmol/L 2 L mmol/L (4-12) (4-12) BUN 18 mg/dL 19 mg/dL (9-20) (9-20) Creatinine 1.64 H mg/dL 2.00 H mg/dL (0.7-1.3) (0.7-1.3) Estim Creat Clear Calc 36 ml/min 30 ml/min Estimated GFR 41 L 32 L (59 - ) (59 - ) Glucose 114 H mg/dL 110 mg/dL (65-110) (65-110) Calcium 8.7 mg/dL 8.3 L mg/dL (8.4-10.2) (8.4-10.2) Total Bilirubin 0.6 mg/dL 0.7 mg/dL (0.2-1.3) (0.2-1.3) AST 33 U/L 29 U/L (17-59) (17-59) ALT 23 U/L 18 U/L (6-50) (6-50) Alkaline Phosphatase 131 H U/L 102 U/L (38-126) (38-126) Total Protein 8.0 g/dL 7.0 g/dL (6.3-8.2) (6.3-8.2) Albumin 4.4 g/dL 3.7 g/dL (3.5-5.1) (3.5-5.1) Urine Color Yellow (Yellow) Urine Appearance Clear (Clear) Urine pH 6.5 (5.0-9.0) Ur Specific [place] 1.015 (1.001-1.035) Urine Protein 1+ H mg/dL (Negative) Urine Glucose (UA) Negative mg/dL (Negative) Urine Ketones Negative mg/dL (Negative) Ur Blood (Man) 3+ H (Negative) Urine Nitrate Negative (Negative) Urine Bilirubin Negative (Negative) Urine Urobilinogen 1.0 mg/dL (<2.0) Leukocyte Esterase Rfl Negative [place]LEY/UL (Negative) Urine RBC >100 H /hpf (0-2) Urine WBC 0-5 /hpf (0-3) Ur Squamous Epith Cells None seen /hpf (Few) Urine Bacteria None seen /hpf Urine Casts 0-2 Patient hx anesthesia problems: none Family hx anesthesia problems: none Results Review: All pre-operative results and documents have been reviewed as part of the pre- operative evaluation. [facility] Past Medical History Medical History Gout HTN (hypertension) HLD (hyperlipidemia) Chronic respiratory failure COPD (chronic obstructive pulmonary disease) Surgical History Surgical History History of tonsillectomy History of lumbar surgery L4 fusion Social History Social History Smoking status: Former smoker Smoking end date: 08/07/02 Alcohol intake: current Drinks per week: 5 Substance use: never Substance use type: does not use Do You Feel Safe in your Home?: Yes Lack of Transportation: No Lack of Food: Never True Current Housing: I Have Housing Concerned About Future Housing: No Difficulty Paying Gas/Electric Bills: No Difficulty Paying for Meds: No Currently Unemployed: YES Education: Decline to Answer Difficulty w/ Childcare or Family Care: No Spiritual care concerns: No Anes - Eval Final PreProcedure Day of Procedure 02/24/25 07:20 Patient weight: normal Heart: regular rate and rhythm Lungs: decreased breath sounds Airway: Mallampati scale class II Neurological: alert and oriented Last oral intake: >/= 8 hours ASA classification: IV Emergent: no Anesthetic plan: proceed Anesthesia type and monitoring: general LMA and standard monitoring Results Review: All pre-operative results and documents have been reviewed as part of the pre- operative evaluation. Informed Consent: The patient's anesthetic plan and its attendant risks and benefits were discussed with the patient/family/POA. Questions were solicited and answers provided to the satisfaction of the patient/family/POA.
[2025-02-24] MEDS: ceFAZolin 2 GM/D5W 50 ML 2 GM/50 ML BAG IVPB (07:23)
--- NOTE | 2025-02-24 07:52 | W.PM.PROC2 ---
Procedure Note - Detailed Date of Procedure 02/24/25 Pre-op Diagnosis RIGHT Ureteral calculi Post-op Diagnosis Same Procedure Performed Cystoscopy, right retrograde, right ureteroscopy, right stent placement 4.8 Mauritian contour Surgeon Mariano Newton MD Anesthesia General Description of Procedure Patient was taken the operative suite correctly identified. Once anesthesia was obtained was placed in dorsal lithotomy position and prepped and draped usual sterile fashion. Twenty-two Mauritian scope was inserted the bladder. Does have some lateral lobe hypertrophy. There are no tumors noted. The right ureteral orifice was cannulated with a guidewire. A ureteral access sheath was placed per rectum not advance at into proximal mid ureter. Mini flexible ureteral scope was then inserted. It was noted that there was some buckling of the ureter with tightness. I placed a 2nd guidewire but again was unable to get past this area. At this point was determined to simply place a stent for passive dilatation. A Tangent was passed over the stent into the renal pelvis. Pyelogram was performed to confirm placement of the stent and wire. 4.8 Mauritian contour stent was then placed with the proximal end coiled in the renal pelvis and the distal in the bladder. Bladder was drained. 2% viscous lidocaine was inserted into the urethra and patient is taken recovery stable condition. Will obtain a KUB to see if stone is still visible. If so he may be a candidate for lithotripsy otherwise he will need a repeat ureteroscopy. This completes dictation. Please send a copy of op note to my office. Estimated Blood Loss 0 Urine Output 600 Drains Yes Packing No Pathology None sent Complications No immediate complications Condition Stable Disposition PACU
[2025-02-24 09:30] LABS: Magnesium 2.2 mg/dL (1.6-2.3)
[2025-02-24] MEDS: allopurinoL 100 MG TABLET PO (09:47)
[2025-02-24] MEDS: amLODIPine BESYLATE 10 MG TABLET PO (09:47)
[2025-02-24] MEDS: GABAPENTIN 300 MG CAPSULE 600 MG PO (09:47)
[2025-02-24] MEDS: DULoxetine HCL 60 MG CAPSULE.DR PO (09:47)
[2025-02-24] MEDS: VITAMIN B COMPLEX CAPSULE 1 CAP PO (09:47)
--- NOTE | 2025-02-24 13:13 | PM.IMPN ---
Subjective Date/time seen: 02/24/25 13:13 Review of Systems Review of Systems: All systems reviewed & are unremarkable except as noted in HPI and below Objective Data Vital Signs Vital Signs: Vital Signs - 24 hr 02/23/25 13:26 02/23/25 13:39 02/23/25 13:45 Temperature Pulse Rate 72 71 72 Respiratory Rate 16 18 18 Blood Pressure 165/93 H 165/71 H 163/80 H Pulse Oximetry 89 L 97 97 Oxygen Delivery Oxygen Flow Rate 02/23/25 14:00 02/23/25 14:15 02/23/25 14:30 Temperature Pulse Rate 82 86 75 Respiratory Rate 18 17 16 Blood Pressure 147/75 H 177/93 H 174/86 H Pulse Oximetry 98 95 97 Oxygen Delivery Oxygen Flow Rate 02/23/25 14:45 02/23/25 16:21 02/23/25 17:02 Temperature 98.3 F Pulse Rate 76 75 75 Respiratory Rate 16 18 12 Blood Pressure 153/76 H 109/67 151/75 H Pulse Oximetry 96 97 96 Oxygen Delivery Oxygen Flow Rate 02/23/25 20:00 02/23/25 20:13 02/24/25 00:00 Temperature 97.8 F Pulse Rate 86 72 Respiratory Rate 16 Blood Pressure 111/60 Pulse Oximetry 94 94 Oxygen Delivery Nasal Cannula Oxygen Flow Rate 4 02/24/25 04:28 02/24/25 05:05 02/24/25 06:21 Temperature 97.4 F L 97.7 F Pulse Rate 72 66 64 Respiratory Rate 12 20 Blood Pressure 158/67 H 137/73 Pulse Oximetry 98 92 Oxygen Delivery Nasal Cannula Oxygen Flow Rate 4 02/24/25 07:58 02/24/25 08:10 02/24/25 08:25 Temperature 97.1 F L Pulse Rate 72 75 66 Respiratory Rate 10 L 11 L 12 Blood Pressure 145/73 H 146/85 H 144/71 H Pulse Oximetry 99 100 100 Oxygen Delivery Simple Face Mask Simple Face Mask Nasal Cannula Oxygen Flow Rate 10 10 4 02/24/25 08:40 02/24/25 08:49 02/24/25 09:07 Temperature 98.2 F Pulse Rate 62 62 65 Respiratory Rate 12 12 12 Blood Pressure 158/71 H 148/72 H 162/94 H Pulse Oximetry 100 100 97 Oxygen Delivery Nasal Cannula Nasal Cannula Oxygen Flow Rate 4 4 02/24/25 09:22 02/24/25 09:50 02/24/25 10:50 Temperature 98.2 F 98.2 F 98.2 F Pulse Rate 70 68 92 Respiratory Rate 12 12 12 Blood Pressure 150/83 H 154/64 H 155/70 H Pulse Oximetry 97 97 100 Oxygen Delivery Oxygen Flow Rate Intake/Output Intake/Output: Intake & Output 02/21/25 02/22/25 02/23/25 02/24/25 23:59 23:59 23:59 23:59 Intake Total 1000 958.3 Output Total 1600 Balance 1000 -641.7 Meds/Results Medications: Active Medications Generic Name Dose Route Start Last Admin Trade Name Freq PRN Reason Stop Dose Admin Acetaminophen 650 mg 02/23/25 17:35 02/24/25 04:10 Acetaminophen 325 Mg Tablet PO 650 mg Q6H PRN Administration Mild Pain (1-3) or Fever Albuterol 2 puff 02/23/25 22:42 Albuterol Sulfate (*Sp) Aerosol 1 Puff INHALATION Q6HRT PRN Shortness Of Breath Or Wheezing Allopurinol 100 mg 02/24/25 09:00 02/24/25 09:47 Allopurinol 100 Mg Tablet PO 100 mg DAILY FAYE Administration Amlodipine Besylate 10 mg 02/24/25 09:00 02/24/25 09:47 Amlodipine Besylate 10 Mg Tablet PO 10 mg DAILY FAYE Administration Duloxetine HCl 60 mg 02/24/25 09:00 02/24/25 09:47 Duloxetine Hcl 60 Mg Capsule.Dr PO 60 mg DAILY FAYE Administration Fentanyl Citrate 25 mcg 02/24/25 07:21 Fentanyl Citrate Inj (*Crx) 100 Mcg/2 Ml Vial IV PUSH Q2M PRN Pain Fluticasone/Umeclidinium/Vilanterol 1 puff 02/24/25 08:00 Fluticasone/Umeclidin/Vilanter 200-62.5-25 Mcg Ellipta INHALATION DAILYRT FAYE Gabapentin 600 mg 02/24/25 09:00 02/24/25 09:47 Gabapentin 300 Mg Capsule PO 600 mg TID FAYE Administration Hydromorphone HCl 0.5 mg 02/23/25 16:10 02/24/25 05:06 Hydromorphone Hcl Inj (*Crx) 2 Mg/Ml Vial IV PUSH 0.5 mg Q4H PRN Administration Pain Rated 7-10 Lactated Ringer's 1,000 mls @ 100 mls/hr 02/23/25 17:40 02/24/25 05:11 Lr - Lactated Ringers Iv IV CONT 02/24/25 13:39 100 mls/hr .Q10H FAYE Administration Lactated Ringer's 1,000 mls @ 30 mls/hr 02/24/25 07:25 02/24/25 07:58 Lr - Lactated Ringers Iv IV CONT 30 mls/hr .Q24H FAYE Infusion Lactated Ringer's 1,000 mls @ 30 mls/hr 02/24/25 07:25 02/24/25 09:13 Lr - Lactated Ringers Iv IV CONT Not Given .Q24H FAYE Ondansetron HCl 4 mg 02/23/25 16:10 02/23/25 20:05 Ondansetron Inj 4 Mg/2 Ml Vial IV PUSH 4 mg Q4H PRN Administration Nausea Ondansetron HCl 4 mg 02/24/25 07:21 Ondansetron Inj 4 Mg/2 Ml Vial IV PUSH ONCE PRN Nausea Oxycodone HCl 20 mg 02/23/25 22:41 02/24/25 00:05 Oxycodone Hcl (*Crx) 5 Mg Tab Ir PO 20 mg Q6H PRN Administration Pain Rated 4-6 Rosuvastatin Calcium 5 mg 02/24/25 21:00 Rosuvastatin 5 Mg Tablet PO HS FAYE Vitamin B Complex 1 cap 02/24/25 09:00 02/24/25 09:47 Vitamin B Complex Capsule PO 1 cap DAILY FAYE Administration Radiology Results: ITS Impressions Abdomen/Pelvis CT 02/23/25 13:19 IMPRESSION: 1. No evidence of appendicitis, diverticulitis or intestinal obstruction. 2. Stone in the right upper ureter with right hydronephrotic changes. Right kidney stones. 3. Left renal cyst. Retrograde Pyelogram 02/24/25 08:41 IMPRESSION: 1. Right internal ureteral stent placement. Please refer to real-time procedural findings for details. Abdomen X-Ray 02/24/25 09:39 IMPRESSION: NO ACUTE ABDOMINAL FINDINGS. Possible stones opposite the midportion of the right double-J stent. Noncontrast abdomen CT is better for evaluation. Labs Labs: Laboratory Results - last 24 hr 05/02/23/25 02/24/25 12:57 12:58 05:26 WBC 11.2 H RBC 4.43 L Hgb 14.0 Hct 42.1 MCV 95.0 MCH 31.6 MCHC 33.3 RDW 13.2 Plt Count 384 H MPV 8.7 Immature Gran % (Auto) 0.4 Neut % (Auto) 83.7 H Lymph % (Auto) 9.8 L [place] % (Auto) 5.3 Eos % (Auto) 0.4 Baso % (Auto) 0.4 Lymph # (Auto) 1.10 [place] # (Auto) 0.6 Eos # (Auto) 0.1 Baso # (Auto) 0.1 Abs Immat Gran (auto) 0.04 H Absolute Neuts (auto) 9.4 H Absolute Nucleated RBC 0.000 Nucleated RBC % 0.0 PT 13.5 INR 1.0 APTT 29.0 Sodium 136 L Potassium 4.1 Chloride 101 Carbon Dioxide 27 Anion Gap 8 BUN 18 Creatinine 1.64 H Estim Creat Clear Calc 36 Estimated GFR 41 L Glucose 114 H Calcium 8.7 Magnesium 2.2 Total Bilirubin 0.6 AST 33 ALT 23 Alkaline Phosphatase 131 H Total Protein 8.0 Albumin 4.4 Urine Color Yellow Urine Appearance Clear Urine pH 6.5 Ur Specific [place] 1.015 Urine Protein 1+ H Urine Glucose (UA) Negative Urine Ketones Negative Ur Blood (Man) 3+ H Urine Nitrate Negative Urine Bilirubin Negative Urine Urobilinogen 1.0 Leukocyte Esterase Rfl Negative Urine RBC >100 H Urine WBC 0-5 Ur Squamous Epith Cells None seen Urine Bacteria None seen Urine Casts 0-2 02/24/25 05:31 WBC 10.0 RBC 4.06 L Hgb 12.7 L Hct 40.0 L MCV 98.5 MCH 31.3 MCHC 31.8 L RDW 13.3 Plt Count 282 MPV 8.8 Immature Gran % (Auto) 0.5 Neut % (Auto) 75.6 H Lymph % (Auto) 11.5 L [place] % (Auto) 10.1 H Eos % (Auto) 2.0 Baso % (Auto) 0.3 Lymph # (Auto) 1.15 [place] # (Auto) 1.0 H Eos # (Auto) 0.2 Baso # (Auto) 0.0 Abs Immat Gran (auto) 0.05 H Absolute Neuts (auto) 7.6 H Absolute Nucleated RBC 0.000 Nucleated RBC % 0.0 PT INR APTT Sodium 139 Potassium 5.2 H Chloride 105 Carbon Dioxide 32 H Anion Gap 2 L BUN 19 Creatinine 2.00 H Estim Creat Clear Calc 30 Estimated GFR 32 L Glucose 110 Calcium 8.3 L Magnesium Total Bilirubin 0.7 AST 29 ALT 18 Alkaline Phosphatase 102 Total Protein 7.0 Albumin 3.7 Urine Color Urine Appearance Urine pH Ur Specific [place] Urine Protein Urine Glucose (UA) Urine Ketones Ur Blood (Man) Urine Nitrate Urine Bilirubin Urine Urobilinogen Leukocyte Esterase Rfl Urine RBC Urine WBC Ur Squamous Epith Cells Urine Bacteria Urine Casts
--- NOTE | 2025-02-24 13:45 | P.DS_ITS ---
DS: Admitting Diagnosis Discharge Date 02/24/2025 Admitting Diagnosis Right sided back pain. DS: Discharge Diagnosis Discharge Diagnosis (1) Right ureteral calculus: Code(s): N20.1 - Calculus of ureter Status: Acute (2) ALICE (acute kidney injury): Code(s): N17.9 - Acute kidney failure, unspecified Status: Acute (3) HTN (hypertension): Qualifiers: Hypertension type: primary hypertension Qualified Code(s): I10 - Essential (primary) hypertension Code(s): I10 - Essential (primary) hypertension Status: Chronic DS: Summary Hospital Course Hospital Course: Initial VS at presentation: 97.6° F, HR 88, RR 18, 117/70, and 90% on RA. ED workup showed: WBC 11.2, normal hemoglobin, normal coags, creatinine 1.64 and GFR 41 (previously 1.07 and GFR >60), and UA showed 1+ protein/3+ blood/greater than [address] of the abdomen/pelvis showed stone in the right upper ureter with right hydronephrotic changes, right kidney stones, and a left renal cyst. 02/24/25: Cystoscopy, right retrograde, right ureteroscopy, right stent placement 4.8 Congolese contour. Patient wanting to go home after procedure. Urology okayed discharge. WBC improved to 10.0. Patient to follow up with urology outpatient. Status at Discharge Functional status at discharge: independent ambulation Overall status at discharge: patient is progressing back to baseline Time Spent with Patient Time attestation: Total time spent providing and/or coordinating discharge services: Time spent: Greater than 30 minutes Exam Const: General: comfortable and no acute distress Resp: Effort & Inspection: normal respiratory effort Auscultation: clear to auscultation bilaterally Cardio: Rate: regular rate Rhythm: regular rhythm GI: GI Palp: Yes Soft to palpation Auscultation: normal bowel sounds : Other: Urine blood tinged. Extrem: General: no pedal edema Psych: Mental Status: mental status grossly normal Affect: normal affect DS: Data Data Completed and Pending Labs on day of discharge: Labs from last 24 hours 02/24/25 02/24/25 02/23/25 05:31 05:26 12:57 WBC 10.0 11.2 H RBC 4.06 L 4.43 L Hgb 12.7 L 14.0 Hct 40.0 L 42.1 MCV 98.5 95.0 MCH 31.3 31.6 MCHC 31.8 L 33.3 RDW 13.3 13.2 Plt Count 282 384 H MPV 8.8 8.7 Immature Gran % (Auto) 0.5 0.4 Neut % (Auto) 75.6 H 83.7 H Lymph % (Auto) 11.5 L 9.8 L Schoolcraft % (Auto) 10.1 H 5.3 Eos % (Auto) 2.0 0.4 Baso % (Auto) 0.3 0.4 Lymph # (Auto) 1.15 1.10 School[place] # (Auto) 1.0 H 0.6 Eos # (Auto) 0.2 0.1 Baso # (Auto) 0.0 0.1 Abs Immat Gran (auto) 0.05 H 0.04 H Absolute Neuts (auto) 7.6 H 9.4 H Absolute Nucleated RBC 0.000 0.000 Nucleated RBC % 0.0 0.0 Sodium 139 Potassium 5.2 H Chloride 105 Carbon Dioxide 32 H Anion Gap 2 L BUN 19 Creatinine 2.00 H Estim Creat Clear Calc 30 Estimated GFR 32 L Glucose 110 Calcium 8.3 L Magnesium 2.2 Total Bilirubin 0.7 AST 29 ALT 18 Alkaline Phosphatase 102 Total Protein 7.0 Albumin 3.7 Urine Color Yellow Urine Appearance Clear Urine pH 6.5 Ur Specific Maurice 1.015 Urine Protein 1+ H Urine Glucose (UA) Negative Urine Ketones Negative Ur Blood (Man) 3+ H Urine Nitrate Negative Urine Bilirubin Negative Urine Urobilinogen 1.0 Leukocyte Esterase Rfl Negative Urine RBC >100 H Urine WBC 0-5 Ur Squamous Epith Cells None seen Urine Bacteria None seen Urine Casts 0-2 Discharge Plan Discharge Attending physician on discharge: Montserrat Bautista Consulting providers: Mariano Newton; Any Santizo; Gissel Cobos; Max Medel; Javier Nicholson; Jesse Alfaro; Esvin Snow Discharging Clinician: Gissel Cobos Anticipated Discharge Date/Time: 02/24/25 14:15 Patient Disposition: Home Activity: may shower and as tolerated Diet: regular Discharge Instructions: * Strain all urine. * Increase oral intake, drink water. * Call for appointment with urologist for stent removal. * Call provider if you develop fever >101, uncontrolled nausea/vomiting, urine does not clear up of blood, or worsening pain. Thank you for entrusting [facility] with your healthcare! Patient Instructions: Antibiotic Form, Kidney Stones (DC), Opioid Safety (DC), Ureteral Stent Placement (DC) Patient Language: Greenlandic Stand Alone Forms: General Discharge Information Follow-up/Referrals: AndreeRufus MD [Primary Care Provider] - 1 Week Mariano Newton MD [Physician] - Call for Appointment Discharge Medications: New hydrocodone-acetaminophen 5-325 mg tablet 1 tablet PO Q12H PRN (Reason: pain) Qty: 14 0RF tamsulosin [Flomax] 0.4 mg capsule 0.4 mg PO DAILY 14 Days Qty: 14 0RF ondansetron 4 mg tablet,disintegrating 4 mg PO Q8H PRN (Reason: nausea and vomiting) Qty: 14 0RF Continued gabapentin 600 mg tablet 600 mg PO TID allopurinol 100 mg tablet 100 mg PO DAILY amlodipine 10 mg tablet 10 mg PO DAILY albuterol sulfate [Ventolin HFA] 90 mcg/actuation HFA aerosol inhaler 2 puff INHALATION PRN rosuvastatin 5 mg tablet 5 mg PO HS duloxetine 60 mg capsule,delayed release(DR/EC) 60 mg PO DAILY oxycodone 20 mg tablet 20 mg PO Q6H PRN (Reason: pain) Trelegy Ellipta 200-62.5-25 mcg blister with device 1 inh inhalation DAILY vitamin B complex Capsule 1 cap PO DAILY vitamin d 3 1 cap PO DAILY Date of admission: 02/23/25 16:10 Primary Care Provider: AndreeRufus Admitting Provider: Nikos Jain Attending physician on admission: Nikos Jain Condition: Improved Hospitalist MIPS Heart Failure (Exclusion) Patient has history of Heart Transplant or Left Ventricular Assistive Device?: No IF YES, STOP HERE Heart Failure (Qualifier) Patient has current or prior documentation of LVEF less than or equal to 40%, or mod/servere depressed LVSF?: No IF NO, STOP HERE
== END 2025-02-24 14:40 | disposition home or self-care (01) ==
LOC: ANHED 15:45 → ANH3MEDSUR 16:46
PROVIDERS: Nurse Practitioner Family; Student in an Organized Health Care Education/Training Program; Urology; Admitting Provider Internal Medicine; Emergency Provider Emergency Medicine; PCP Hospitalist; Visit Provider Internal Medicine
PROC: (CPT 52352; principal; 2025-02-24 07:30)
DX: N13.2 Hydronephrosis with renal and ureteral calculous obstruction (principal); N17.9 Acute kidney failure, unspecified; I10 Essential (primary) hypertension; E78.5 Hyperlipidemia, unspecified; J44.9 Chronic obstructive pulmonary disease, unspecified; J96.10 Chronic respiratory failure, unspecified whether with hypoxia or hypercapnia; Z79.51 Long term (current) use of inhaled steroids; Z79.891 Long term (current) use of opiate analgesic; Z99.81 Dependence on supplemental oxygen; Z98.890 Other specified postprocedural states; Z98.1 Arthrodesis status; Z87.891 Personal history of nicotine dependence
CPT/HCPCS: 52332; 36415; 74018; 74176; 74420; 80053; 81001; 83735; 85025; 85610; 85730; 96361; 96374; 96375; 96376; 99285; A9270; C1769; C1894; C2617; G0378; J0690; J1171; J1885; J2405; J2704; J3010; J7120; Q9966

== ENCOUNTER 2025-03-03 13:16 | Outpatient (CLI) | payer MEDICARE, SELFPAY ==
--- NOTE | ~2025-03-03 | XR_ITS ---
Supine and upright views of the abdomen Clinical history: Right ureteral stone COMPARISON: 02/24/2025 Findings: Bowel gas pattern is nonspecific. No evidence for obstruction or free air. Right ureteral s tent in place. No definite stones identified. Lower lumbar spinal fixation hardware again present. Impression: Right ureteral stent. No definite stones identified radiographically. Reviewed, dictated and finalized at [facility]. Impression: Right ureteral stent. No definite stones identified radiographically.
--- OUTSIDE RECORDS SUMMARY | 2025-03-03 13:24 | XMS_ITS | Encounter Summary ---
Author Organization [facility] Address [address] [place] [address] Phone Care Team Providers Care Returned Item Clerk Name Role Phone Unknown, Notinfile Primary Care Provider Unavail Rufus Mack MD Primary Care Provider [phone] Coby Adler RN Unavailable [phone] Encounter Details Date Type Department Care Team [...] COVID: Suspected 12/10/2023 12/10/2023 12/10/2023 8:28 PM PERSONNEL SCHEDULER Rhino/Enterovirus 12/10/2023 12/10/2023 12/17/2023 3:05 AM CDT documented as of this encounter Care Teams Returned Item Clerk Relationship Specialty Start Date End Date Unknown, Notinfile PCP - General 01/24/23 04/14/23 Rufus Candelario MD [address] [place] [address] PCP - General Family Medicine 04/15/23 Coby Adler, RN [address] [address] [facility] Out[facility] Neurology Professor 12/17/23 12/17/23 documented as of this encounter
--- OUTSIDE RECORDS SUMMARY | 2025-03-03 13:24 | XMS_ITS | Encounter Summary ---
Author Organization [facility] Address [address] [place] [address] Phone Care Team Providers Care Business Liaison Officer Name Role Phone Unknown, Notinfile Primary Care Provider Unavail Rufus Mack MD Primary Care Provider [phone] Coby Adler RN Unavailable [phone] Encounter Details Date Type Department Care Team [...] COVID: Suspected 12/10/2023 12/10/2023 12/10/2023 8:28 PM MARKETING AND COMMUNICATIONS OFFICER Rhino/Enterovirus 12/10/2023 12/10/2023 12/17/2023 3:05 AM CDT documented as of this encounter Care Teams Business Liaison Officer Relationship Specialty Start Date End Date Unknown, Notinfile PCP - General 01/24/23 04/14/23 Rufus Candelario MD [address] [place] [address] PCP - General Family Medicine 04/15/23 Coby Adler, SERAFIN [address] [address] [facility] Network Technician 12/17/23 12/17/23 documented as of this encounter
--- OUTSIDE RECORDS SUMMARY | 2025-03-03 13:24 | XMS_ITS | Encounter Summary ---
Author Organization [facility] Address [address] [place] [address] Phone Care Team Providers Care Mild Disabilities Teacher Name Role Phone Unknown, Notinfile Primary Care Provider Unavail Rufus Mack MD Primary Care Provider [phone] Coby Adler RN Unavailable [phone] Encounter Details Date Type Department Care Team [...] COVID: Suspected 12/10/2023 12/10/2023 12/10/2023 8:28 PM MANAGER VISUAL Rhino/Enterovirus 12/10/2023 12/10/2023 12/17/2023 3:05 AM CDT documented as of this encounter Care Teams Mild Disabilities Teacher Relationship Specialty Start Date End Date Unknown, Notinfile PCP - General 01/24/23 04/14/23 Rufus Candelario MD [address] [place] [address] PCP - General Family Medicine 04/15/23 Coby Adler, RN [address] [address] [facility] Outpatient Python Web Developer 12/17/23 12/17/23 documented as of this encounter
--- OUTSIDE RECORDS SUMMARY | 2025-03-03 13:24 | XMS_ITS | Encounter Summary ---
Author Organization [facility] Address [address] [place] [address] Care Team Providers Care Technician Trainee Name Role Phone Rufus Candelario MD Primary Care Provider [phone] Reason for Visit * Reason Comments Follow-up 6 mo follow up Dizziness Pt complaining of fe eling more lightheaded for the past couple of weeks. Pt denies falls, n/v, ear symptoms, headaches. Encounter Details Date Type Department Care Team (Late st Contact Info) Description 03/02/2025 11:30 AM CDT Office Visit [facility] [address] [place] [address] Rufus Candelario MD [address] [place] [address] Dyslipidemia (Primary Dx); Hypocalcemia; Centrilobular emphysema (HCC); Lumbar spondylosis with myelopathy; Osteopenia of multiple sites; Secondary hyperparathyroidism; Essential (primary) hypertension Social History Tobacco Use Types Packs/Day Years [...] on file documented as of this encounter Last Filed Vital Signs Vital Sign Reading Time Taken Comments Blood Pressure 90/60 03/02/2025 11:12 AM CDT Pulse 72 03/02/2025 11:12 AM CDT Temperature 36.6 C (97.8 F) 03/02/2025 11:12 AM CDT Respiratory Rate 20 03/02/2025 11:12 AM CDT Oxygen Saturation 92% 03/02/2025 11:12 AM CDT Inhaled Oxygen Concentration - - Weight 79.4 kg (175 lb) 03/02/2025 11:12 AM CDT Height 182.9 cm (6') 03/02/2025 11:12 AM CDT Body Mass Index 23.73 03/02/2025 11:12 AM CDT documented in this encounter Ordered Prescriptions Prescription Sig Dispense Quantity Refills Last Filled Start Date End Date ergocalciferol (VITAMIN D) 50,000 unit capsule Take 1 capsule (50,000 Units total) by mouth once a week 12 capsule 3 03/02/2025 documented in this encounter Progress Notes * Rufus Candelario MD - 03/02/2025 11:30 AM CDT Images from the original note were not included. Subjective/Objective Patient ID: Norman Fry is a 79 y.o. male. Chief Complaint Chief Complaint Patient presents with Follow-up 6 mo follow up Dizziness Pt complaining of feeling more lightheaded for the past couple of weeks. Pt denies falls, n/v, ear symptoms, headaches. Diagnoses and all orders for this visit: Dyslipidemia (Primary) Assessment & Plan: Stable well controlled, LDL at goal; encourage low-fat high-fiber diet Continue rosuvastatin 5 mg daily Orders: - CBC with auto differential; Future - Comprehensive metabolic panel; Future - Lipid panel; Future Hypocalcemia - PTH; Future Centrilobular emphysema (HCC) Assessment & Plan: Not well controlled; follows with pulmonology; requires supplemental oxygen at home; 4 L mostly time; unable to handle oxygen take when leaving goal; went for a portable concentrator to allow increased activity and mobility Continue Trelegy Ellipta 1 puff daily; controlled on PRN Lumbar spondylosis with myelopathy Assessment & Plan: Stable, mostly controlled with medication, though continues to have episodes of breakthrough pain Continue oxycodone 20 mg every 6 hours as needed Patient given home exercises to help with acute strain of lumbar spine and sciatic nerve pain Osteopenia of multiple sites Assessment & Plan: No increased risk of fractures; encouraged vitamin-D and calcium supplementation as well as regularweight-bearing exercises Secondary hyperparathyroidism Assessment & Plan: Stable, evaluated by Endocrinology; likely secondary to hypovitaminosis D; continue vitamin-D 50,000 weekly Essential (primary) hypertension Assessment & Plan: Stable, well controlled, blood pressure at goal; low normal; continue amlodipine 10 mg daily; patient recently started on tamsulosin secondary to nephrolithiasis; continue to monitor closely while ontamsulosin Other orders - ergocalciferol (VITAMIN D) 50,000 unit capsule; Take 1 capsule (50,000 Units total) by mouth oncea week Assessment & Plan No follow-ups on file. HPI Patient is a 79 y.o. year old male presenting today for management of chronic medical conditions. HPI Uretral stone -has stent in place; on tamsulosin; -no follow-up scheduled -no more pain; still has some hematuria, stent still in place - Dyslipidemia: COPD: -O2 dependent; on 4L at rest -wears oxygen all of the time at home -has can in car; but does not use when going short durations; in car; at rest HTN: -blood pressure at goal -low normal - Lumbar Spondylosis: - Osteopenia: -low VitD levels History of Present Illness BP 90/60 (BP Location: Left arm, Patient Position: Sitting) Pulse 72 Temp 36.6 ??C (97.8 ??F) (Temporal) Resp 20 Ht 182.9 cm (6') Wt 79.4 kg (175 lb) SpO2 92% BMI 23.73 kg/m?? Current Outpatient Medications Medication Sig Dispense Refill allopurinoL (ZYLOPRIM) 100 mg tablet Take 1 tablet by mouth once daily 90 tablet 0 amLODIPine (NORVASC) 10 mg tablet Take 1 tablet by mouth once daily [address] (CYMBALTA) 60 mg capsule Take 1 capsule by mouth once daily 90 capsule 3 pgqcrdxbflx-blxjfhvtg-ztqctqwn (Trelegy Ellipta) 200-62.5-25 mcg inhaler Inhale 1 puff daily 90 each 3 gabapentin (NEURONTIN) 600 mg tablet Take 1 tablet (600 mg total) by mouth 3 (three) times a day 90tablet 11 naloxone (NARCAN) 4 mg/actuation spray,non-aerosol Administer 1 spray into affected nostril(s) as needed for opioid reversal or respiratory depression Call 911. Administer a single spray in one nostril. Repeat every 3 minutes as needed if no or minimal response. 2 each 1 ondansetron ODT (ZOFRAN-ODT) 4 mg disintegrating tablet Take 1 tablet (4 mg total) by mouth every 8(eight) hours as needed for nausea 20 tablet 0 oxyCODONE (ROXICODONE) 20 mg tablet Take 1 tablet (20 mg total) by mouth every 6 (six) hours as needed for pain 120 tablet 0 oxygen Administer 2 L/min into each nostril as needed rosuvastatin (CRESTOR) 5 mg tablet Take 1 tablet (5 mg total) by mouth daily 100 tablet 1 tamsulosin (FLOMAX) 0.4 mg extended release capsule Take 1 capsule (0.4 mg total) by mouth daily Ventolin HFA 90 mcg/actuation inhaler INHALE 1 PUFF BY MOUTH EVERY 6 HOURS NEEDED FOR WHEEZING 18 g 0 vitamin B complex capsule Take 1 capsule by mouth daily vitamin D3-vitamin K2 25 mcg (1,000 unit)-90 mcg tablet,disintegrating Take by mouth daily ergocalciferol (VITAMIN D) 50,000 unit capsule Take 1 capsule (50,000 Units total) by mouth once a week 12 capsule 3 No current facility-administered medications for this visit. Allergies as of 03/02/2025 (No Known Allergies) Review of Systems Constitutional: Negative for activity change, chills and fever. HENT: Negative for sore throat. Respiratory: Negative for cough and shortness of breath. Gastrointestinal: Negative for abdominal pain, constipation, diarrhea, nausea and vomiting. Musculoskeletal: Positive for arthralgias and back pain. Negative for myalgias. Neurological: Positive for numbness. Psychiatric/Behavioral: Negative for dysphoric mood. The patient is not nervous/anxious. Physical Exam Vitals reviewed. Constitutional: Appearance: Normal appearance. HENT: Head: Normocephalic and atraumatic. Cardiovascular: Rate and Rhythm: Normal rate and regular rhythm. Pulses: Normal pulses. Heart sounds: Normal heart sounds. Pulmonary: Effort: Pulmonary effort is normal. Breath sounds: No wheezing, rhonchi or rales. Abdominal: General: Abdomen is flat. Palpations: Abdomen is soft. Musculoskeletal: General: No swelling or signs of injury. Normal range of motion. Back: Skin: General: Skin is warm and dry. Neurological: General: No focal deficit present. Mental Status: He is alert and oriented to person, place, and time. Psychiatric: Mood and Affect: Mood normal. Behavior: Behavior normal. Thought Content: Thought content normal. Physical Exam Results Procedures Rufus Candelario MD documented in this encounter Miscellaneous Notes * Assessment & Plan Note - Rufus Candelario MD - 03/02/2025 2:59 PM CDT Associated Problem(s): Osteopenia of multiple sites No increased risk of fractures; encouraged vitamin-D and calcium supplementation as well as regularweight-bearing exercises * Assessment & Plan Note - Rufus Candelario MD - 03/02/2025 2:59 PM CDT Associated Problem(s): Secondary hyperparathyroidism Stable, evaluated by Endocrinology; likely secondary to hypovitaminosis D; continue vitamin-D 50,000 weekly * Assessment & Plan Note - Rufus Candelario MD - 03/02/2025 2:59 PM CDT Associated Problem(s): Essential (primary) hypertension Stable, well controlled, blood pressure at goal; low normal; continue amlodipine 10 mg daily; patient recently started on tamsulosin secondary to nephrolithiasis; continue to monitor closely while ontamsulosin * Assessment & Plan Note - Rufus Candelario MD - 03/02/2025 2:58 PM CDT Associated Problem(s): Lumbar spondylosis with myelopathy Stable, mostly controlled with medication, though continues to have episodes of breakthrough pain Continue oxycodone 20 mg every 6 hours as needed Patient given home exercises to help with acute strain of lumbar spine and sciatic nerve pain * Assessment & Plan Note - Rufus Candelario MD - 03/02/2025 2:58 PM CDT Associated Problem(s): Dyslipidemia Stable well controlled, LDL at goal; encourage low-fat high-fiber diet Continue rosuvastatin 5 mg daily * Assessment & Plan Note - Rufus Candelario MD - 03/02/2025 2:58 PM CDT Associated Problem(s): Chronic obstructive pulmonary disease (HCC) Not well controlled; follows with pulmonology; requires supplemental oxygen at home; 4 L mostly time; unable to handle oxygen take when leaving goal; went for a portable concentrator to allow increased activity and mobility Continue Trelegy Ellipta 1 puff daily; controlled on PRN documented in this encounter Plan of Treatment Scheduled Orders Name Type Priority Associated Diagnoses Orde r Schedule CBC with auto differential Lab Routine Dyslipidemia Expected: 02/15/2025, Expires: 02/15/2026 Comprehensive metabolic panel Lab Routine Dyslipidemia Expected: 02/15/2025, Expires: 02/15/2026 PTH Lab Routine Hypocalcemia Expected: 02/15/2025, Expires: 02/15/2026 Lipid panel Lab Routine Dyslipidemia Expected: 02/15/2025, Expires: 02/15/2026 documented as of this encounter Visit Diagnoses Diagnosis Dyslipidemia- Primary Other and unspecified hyperlipidemia Hypocalcemia Centrilobular emphysema (HCC) Lumbar spondylosis with myelopathy Spondylosis with myelopathy, lumbar region Osteopenia of multiple sites Secondary hyperparathyroidism Secondary hyperparathyroidism (of renal origin) Essential (primary) hypertension Unspecified essential hypertension documented in this encounter Discontinued Medications Medication Sig Discontinue Reason Start Date End Da te ergocalciferol (VITAMIN D) 50,000 unit capsule Take 1 capsule (50,000 Units total) by mouth once a week Reorder 01/01/2025 03/02/2025 cyanocobalamin, vitamin B-12, (VITAMIN B-12 ORAL) Take by mouth daily Duplicate order 03/02/2025 gabapentin (NEURONTIN) 300 mg capsule Take 1 capsule (300 mg total) by mouth 3 (three) times a day Duplicate order 12/16/2023 03/02/2025 documented as of this encounter Historical Medications * This list may reflect changes made after this encounter. tamsulosin (FLOMAX) 0.4 mg extended release capsule Take 1 capsule (0.4 mg total) by mouth daily 02/23/2025 vitamin B complex capsule Take 1 capsule by mouth daily added in this encounter Care Teams Technician Trainee Relationship Specialty Start Date End Date Rufus Candelario MD [address] [place] [address] PCP - General Family Medicine 04/15/23 documented as of this encounter
--- OUTSIDE RECORDS SUMMARY | 2025-03-03 13:24 | XMS_ITS | Encounter Summary ---
Author Organization [facility] Address [address] [place] [address] Phone Care Team Providers Care Accounting Systems Manager Name Role Phone Unknown, Notinfile Primary Care Provider Unavail Rufus Mack MD Primary Care Provider [phone] Coby Adler RN Unavailable [phone] Encounter Details Date Type Department Care Team [...] COVID: Suspected 12/10/2023 12/10/2023 12/10/2023 8:28 PM WELDER Rhino/Enterovirus 12/10/2023 12/10/2023 12/17/2023 3:05 AM CDT documented as of this encounter Care Teams Accounting Systems Manager Relationship Specialty Start Date End Date Unknown, Notinfile PCP - General 01/24/23 04/14/23 Rufus Candelario MD [address] [place] [address] PCP - General Family Medicine 04/15/23 Coby Adler, RN [address] [address] [facility] Outpatient Ssrs Developer 12/17/23 12/17/23 documented as of this encounter
--- OUTSIDE RECORDS SUMMARY | 2025-03-03 13:24 | XMS_ITS | Encounter Summary ---
Author Organization [facility] Address [address] [place] [address] Phone Care Team Providers Care Flanging Machine Operator Name Role Phone Unknown, Notinfile Primary Care Provider Unavail Rufus Mack MD Primary Care Provider [phone] Coby Adler RN Unavailable [phone] Encounter Details Date Type Department Care Team [...] COVID: Suspected 12/10/2023 12/10/2023 12/10/2023 8:28 PM PREPARATION DEPARTMENT SUPERVISOR Rhino/Enterovirus 12/10/2023 12/10/2023 12/17/2023 3:05 AM CDT documented as of this encounter Care Teams Flanging Machine Operator Relationship Specialty Start Date End Date Unknown, Notinfile PCP - General 01/24/23 04/14/23 Rufus Candelario MD [address] [place] [address] PCP - General Family Medicine 04/15/23 Coby Adler, SERAFIN [address] [address] [facility] Outpatient Associate Technician 12/17/23 12/17/23 documented as of this encounter
--- OUTSIDE RECORDS SUMMARY | 2025-03-03 13:24 | XMS_ITS | Encounter Summary ---
Author Organization [facility] Address [address] [place] [address] Phone Care Team Providers Care Screw Machine Hand Name Role Phone Unknown, Notinfile Primary Care Provider Unavail Rufus Mack MD Primary Care Provider [phone] Coby Adler RN Unavailable [phone] Encounter Details Date Type Department Care Team [...] COVID: Suspected 12/10/2023 12/10/2023 12/10/2023 8:28 PM SEWING MACHINE ADJUSTER Rhino/Enterovirus 12/10/2023 12/10/2023 12/17/2023 3:05 AM CDT documented as of this encounter Care Teams Screw Machine Hand Relationship Specialty Start Date End Date Unknown, Notinfile PCP - General 01/24/23 04/14/23 Rufus Candelario MD [address] [place] [address] PCP - General Family Medicine 04/15/23 Coby Adler, RN [address] [address] [place] Outpatient Communications And Signals Supervisor 12/17/23 12/17/23 documented as of this encounter
--- OUTSIDE RECORDS SUMMARY | 2025-03-03 13:24 | XMS_ITS | Encounter Summary ---
Author Organization [facility] Address [address] [place] [address] Phone Care Team Providers Care Well Testing Operator Name Role Phone Unknown, Notinfile Primary Care Provider Unavail Rufus Mack MD Primary Care Provider [phone] Coby Adler RN Unavailable [phone] Encounter Details Date Type Department Care Team [...] COVID: Suspected 12/10/2023 12/10/2023 12/10/2023 8:28 PM DOOR MANAGER Rhino/Enterovirus 12/10/2023 12/10/2023 12/17/2023 3:05 AM CDT documented as of this encounter Care Teams Well Testing Operator Relationship Specialty Start Date End Date Unknown, Notinfile PCP - General 01/24/23 04/14/23 Rufus Candelario MD [address] [place] [address] PCP - General Family Medicine 04/15/23 Coby Adler, RN [address] [address] [place] Outpatient Commercial Electrician 12/17/23 12/17/23 documented as of this encounter
--- OUTSIDE RECORDS SUMMARY | 2025-03-03 13:24 | XMS_ITS | Encounter Summary ---
Author Organization [facility] Healthcare Address [address] [place] [address] Care Team Providers Care Hvac Controls Technician Name Role Phone Rufus Candelario MD Primary Care Provider [phone] Encounter Details Date Type Department Care Team (Late st Contact Info) Description 03/02/2025 Telephone [facility] [address] [address] Maria Luisa Villarreal RN Social History Tobacco Use Types Packs/Day Years Used Date Smoking Tobacco: Former Cigarettes Q uit: 01/06/2001 Smokeless Tobacco: Never AUDIT-C Answer Date Recorded [...] on file documented as of this encounter Miscellaneous Notes * Telephone Encounter - Maria Luisa Villarreal RN - 03/02/2025 3:32 PM CDT Received the following Secure Chat from Dr. Candelario: Mr. Fry would benefit from a portable oxygen concentrator, he cannot move a tank on his own; and requires 4 L based on prior testing. Called and spoke with patient. Patient stated he receives his oxygen and all related supplies from [facility]. Upon review of chart, an order for a portable oxygen concentrator was faxed to [facility] on 01/08/2025 by [facility] (Dr. Lester Sidhu). Patient aware to follow-up with [facility] regarding order status. documented in this encounter Plan of Treatment Not on file documented as of this encounter Visit Diagnoses Not on filedocumented in this encounter Care Teams Hvac Controls Technician Relationship Specialty Start Date End Date Rufus Candelario [place] [place] [address] PCP - General Family Medicine 04/15/23 documented as of this encounter
--- OUTSIDE RECORDS SUMMARY | 2025-03-03 13:24 | XMS_ITS | Patient Health Record ---
Author Organization [facility] Address [address] [place] [address] Care Team Providers Care Photo Lab Manager Name Role Phone Aayush King Unavailable [phone] Allergies No Known Allergies Reason For Referral No Information Medications Medication SIG (Take, Route, Frequency, Duration) Notes Start Date End Date Status Losartan Potassium 50 MG 1 tablet Orally Once a day for 90 days Active Ventolin HFA 108 (90 Base) MCG/ACT Inhalation for -2 05/04/2019 Active Gabapentin 300 1 ORAL 3 times a day for -2 03/06/2019 Active Chester 10-325 MG 1 ORAL five times da ani for -2 03/06/2019 Active Crestor 5 MG 1 ORAL daily for -2 03/06/2019 Active dilTIAZem HCl 240 for -2 07/28/2019 A ctive amLODIPine Besylate 10 MG 1 tablet Orally Once a day Active Immunizations Vaccine Route Administration Date Status Comme nts Influenza (split), 3 yrs and above Unknown 07/28/2015 A dministered Influenza (split), 3 yrs and above Unknown 06/18/2016 A dministered Influenza, high dose seasonal Unknown 06/29/2019 Admini stered Influenza, quadrivalent, spl it virus Unknown 07/20/2020 Administered Influenza, quadrivalent, spl it virus Unknown 06/25/2022 Administered Influenza, quadrivalent, spl it, preservative free, 3 years or older Unknown 10/13/2014 Administered MMR Unknown 03/13/2019 Administered Pneumococcal conjugate PCV 7 Unknown 10/02/2016 Adminis tered Pneumococcal polysaccharide PPV23 Unknown 09/20/2015 Ad ministered Pneumococcal polysaccharide PPV23 Unknown 10/02/2016 Ad ministered Social History Tobacco Use: Social History Observation Description Date Details (start date - stop date) Former Smoker NA - NA Tobacco Use/Smoking Question Answer Notes Tobacco use: former smoker Problems Problem Type SNOMED Code ICD Code Onset Dates Problem Status W/U Status Risk Notes Problem 90566971 Essential (primary) hypertension (I10) Active confirmed Problem 204344924 Chronic respiratory failure with hypoxia (J96.11) Active confirmed Problem 316732395 Solitary pulmonary nodule (R91.1) Active confirmed Problem Chronic obstructive pulmonary disease (29788984) CHRONIC OBSTRUCTIVE PULMONARY DISEASE (J44.9) 05/06/20 Active confirmed Problem Hyperlipidemia (51194883) HYPERLIPIDEMIA (E78.5) 05/06/20 Active confirmed Plan Of Treatment No Information Insurance Providers Payer Name Payer Address Payer Phone Subscriber Number Group Number Insured Name Patient Relationship to Insured Coverage Start Date Coverage End Date MEDICARE [address] [address] [place] [address] [phone] [id number] [place] Self - patient is the insured 6 A[employer] SUPPLEMENT [address] [place] [address] [id number] [place] Self - patient is the insured 6 Medical (General) History Medical History History ICD Code LUMBAR SPINAL STENOSIS M48.061 CHRONIC OBSTRUCTIVE PULMONARY DISEASE J4 4.9 HYPERLIPIDEMIA E78.5 SHORT OF BREATH ON EXERTION R06.09 CERVICAL RADICULOPATHY M54.12 Surgical History Surgery Date(Month/Year) BACK SURGERY TONSILLECTOMY
--- OUTSIDE RECORDS SUMMARY | 2025-03-03 13:25 | XMS_ITS | Clinical Summary ---
Author Organization [facility] Address [address] [place] [address] Care Team Providers Care Civil Engineering Specialist Name Role Phone Rufus Candelario MD Primary Care Provider [phone] Allergies No known active allergies Medications naloxone (NARCAN) 4 mg/actuation spray,non-aerosol Administer 1 [...] daily 90 each 3 10/09/19 24 Active ondansetron ODT (ZOFRAN-ODT) 4 mg disintegrating [...] once daily 90 tablet 12/29/19 25 Active oxyCODONE (ROXICODONE) 20 mg tabletIndications: Pain Take 1 tablet (20 mg total) by mouth every 6 (six) hours as needed for pain 120 tablet 02/13/20 25 025 Active vitamin B complex capsule Take 1 capsule by mouth daily Active tamsulosin (FLOMAX) 0.4 mg extended release capsule Take 1 capsule (0.4 mg total) by mouth daily 02/24/20 25 Active ergocalciferol (VITAMIN D) 50,000 unit capsule Take 1 capsule (50,000 Units total) by mouth once a week 12 capsule 3 03/02/20 25 026 Active cyanocobalamin, vitamin B-12, (VITAMIN B-12 ORAL) Take by mouth daily 025 Discontin ued(Dupli alessandro order) gabapentin (NEURONTIN) 300 mg capsule Take 1 capsule (300 mg total) by mouth 3 (three) times a day 90 capsule 11 12/16/19 24 025 Discontin ued(Dupli alessandro order) ergocalciferol (VITAMIN D) 50,000 unit capsule Take 1 capsule (50,000 Units total) by mouth once a week 4 capsule 3 01/02/20 25 025 Discontin ued(Reord er) oxyCODONE (ROXICODONE) 20 mg tabletIndications: Pain Take 1 tablet (20 mg total) by mouth every 6 (six) hours as needed for pain 120 tablet 01/14/20 25 025 Discontin ued(Reord er) Active Problems Problem Noted Date Diagnosed Date Chronic respiratory failure with hypoxia 025 Solitary pulmonary nodule 11/30/2024 Essential (primary) hypertension 11/30/2024 Assessment & Plan (03/02/2025 2:59 PM CDT): Stable, well controlled, blood pressure at goal; low normal; continue amlodipine 10 mg daily; patient recently started on tamsulosin secondary to nephrolithiasis; continue to monitor closely while on tamsulosin Secondary hyperparathyroidism 11/30/2024 Assessment & Plan (03/02/2025 2:59 PM CDT): Stable, evaluated by Endocrinology; likely secondary to hypovitaminosis D; continue vitamin-D 50,000 weekly Vitamin D deficiency 11/30/2024 Osteopenia of multiple sites 11/30/2024 Assessment & Plan (03/02/2025 2:59 PM CDT): No increased risk of fractures; encouraged vitamin-D and calcium supplementation as well as regular weight-bearing exercises Concern about memory 09/08/2024 Assessment & Plan (09/08/2024 4:08 PM PROFESSOR OF MUSIC): Patient reports some concerns about memory, especially short-term Often things will come back to home, though can take extra time to find things Able to drive and does not get lost, able to manage finances Power of patent prosecution attorney for Will continue to monitor Drug-induced [...] 12/11/2023 Assessment & Plan (12/12/2023 1:21 PM PROFESSOR OF MUSIC): -continue airway clearance with hypertonic saline twice daily and flutter valve Assessment & Plan (12/11/2023 12:39 PM PROFESSOR OF MUSIC): -continue airway clearance with hypertonic saline twice [...] today) Assessment & Plan (12/12/2023 1:20 PM PROFESSOR OF MUSIC): -diagnosed 10/2023 on bronchoscopy, nodular disease w/ [...] omadacycline Assessment & Plan (12/11/2023 12:36 PM PROFESSOR OF MUSIC): -diagnosed 10/2023 on bronchoscopy, nodular disease w/ [...] 12/10/2023 Assessment & Plan (09/08/2024 4:07 PM PROFESSOR OF MUSIC): Stable, has chronic pain, multiple sites, generally well controlled with current medications Patient unable to bend over to do work, has pain with walking Current doses no longer providing significant relief Patient is strictly medications, no risk for abuse Will increase oxycodone to 20 mg q.6 hours p.r.n. Assessment & Plan (12/10/2023 6:36 PM PROFESSOR OF MUSIC): - cont home oxy, duloxetine, gabapentin - pending renal function, may want to dose reduce gabapentin - stool softeners PRN Gout 12/10/2023 Assessment & Plan (02/11/2024 4:05 PM CDT): Stable, well controlled, no major flares Continue allopurinol 100 mg daily Assessment & Plan (12/10/2023 6:35 PM PROFESSOR OF MUSIC): - allopurinol CKD (chronic kidney disease) 12/10/2023 Assessment & Plan (09/08/2024 4:07 PM PROFESSOR OF MUSIC): Last EGFR was 54, PTH mildly elevated [...] baseline Assessment & Plan (12/12/2023 1:21 PM PROFESSOR OF MUSIC): -monitor renal function, renally dose meds -elevation in creatinine to 1.9 12/10. Unlikely due to antibiotics which were just started, but will monitor. Agree with IV hydration Assessment & Plan (12/11/2023 12:37 PM PROFESSOR OF MUSIC): -monitor renal function, renally dose meds Assessment & Plan (12/14/2023 11:54 AM PROFESSOR OF MUSIC): Cr 1.55 outpatient, presumably representing CKD3. - Cr 1.71 > 1.92 > 1.43 > 1.58, ALICE improved with IVF - Hold losartan for now - Renally dose meds, avoid nephrotoxins - requesting RN to assist with records from prior Telecommunications Technician - Referral to Nephrology at discharge Sore throat 12/10/2023 Assessment & Plan (12/11/2023 10:27 AM PROFESSOR OF MUSIC): C/o sore throat x 4 days POST SPLITTER. - RPP + rhino/entero virus - CXR as elsewhere - abx as elsewhere - see COPD Cervical radiculopathy 04/30/2023 Assessment & Plan (07/22/2023 10:03 AM CDT): Continues to have constant pain; has some relief with current medications to improve function -symptoms worse in lower back -with medication able to take group home and -use every 6 hours (4 tabs per day) Left foot drop 04/30/2023 Lumbosacral neuritis 04/30/2023 Lumbar spondylosis with myelopathy 04/30/2023 Assessment & Plan (03/02/2025 2:58 PM CDT): Stable, mostly controlled with medication, though continues to have episodes of breakthrough pain Continue oxycodone 20 mg every 6 hours as needed Patient given home exercises to help with acute strain of lumbar spine and sciatic nerve pain Assessment & Plan (02/11/2024 4:05 PM CDT): [...] obstructive pulmonary disease 04/15/2023 Assessment & Plan (03/02/2025 2:58 PM CDT): Not well controlled; follows with pulmonology; requires supplemental oxygen at home; 4 L mostly time; unable to handle oxygen take when leaving goal; went for a portable concentrator to allow increased activity and mobility Continue Trelegy Ellipta 1 puff daily; controlled on PRN Assessment & Plan (09/08/2024 4:07 PM PROFESSOR OF MUSIC): Stable, patient reports it takes less to [...] required Assessment & Plan (12/13/2023 4:45 PM PROFESSOR OF MUSIC): -Continue home Trelegy daily and albuterol prn Assessment & Plan (12/12/2023 1:20 PM PROFESSOR OF MUSIC): -Continue home Trelegy daily and albuterol prn Assessment & Plan (12/11/2023 12:36 PM PROFESSOR OF MUSIC): Continue home Trelegy and albuterol prn Assessment & Plan (12/11/2023 10:25 AM PROFESSOR OF MUSIC): COPD w/ severe airflow limitation and lower [...] mg daily Dyslipidemia 08/10/2018 Assessment & Plan (03/02/2025 2:58 PM CDT): Stable well controlled, LDL at goal; encourage low-fat high-fiber diet Continue rosuvastatin 5 mg daily Assessment & Plan (09/08/2024 4:06 PM PROFESSOR OF MUSIC): Stable, well controlled Continue rosuvastatin 5 mg [...] Encounters Date Type Department Care Team Description 03/02/2025 11:30 AM CDT [facility] Visit [facility] [address] [place] [address] Rufus Candelario MD Dyslipidemia (Primary Dx); Hypocalcemia; Centrilobular emphysema (HCC); Lumbar spondylosis with myelopathy; Osteopenia of multiple sites; Secondary hyperparathyroidism; Essential (primary) hypertension 03/02/2025 Telephone [facility] [place] [address] [place] [address] Maria Luisa Villarreal RN 02/25/2025 Telephone [facility] [place] [address] [place] [address] Rufus Candelario MD 02/24/2025 Orders Only [facility] [address] [place] [address] Scanning, Provider 02/23/2025 Orders Only [facility] [address] [place] [address] Scanning, Provider 01/08/2025 Telephone [facility] [address] [facility] [address] [place] [address] [place] [address] Andrea Sherman RN 01/06/2025 1:30 PM CDT Office Visit [facility] [address] [facility] [address] [place] [address] [place] [address] Lester Hair MD Abnormal chest CT (Primary Dx); Chronic obstructive pulmonary disease, unspecified COPD type (HCC); Hypoxemia; Cavitary lesion of lung; 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 01/06/2025 12:17 PM CDT - 01/06/2025 11:59 PM CDT Hospital Encounter [facility] [address] [facility] [address] [place] [address] Chronic obstructive pulmonary disease, unspecified COPD type (HCC) Discharge Disposition: Discharge to home or self care 01/01/2025 Results Follow-Up [facility] [address] [address] Bharati Zamora MD Dexa Axial Skeleton Bone Density 1 or 2 Site 01/01/2025 Results Follow-Up [facility] [address], [place] [address] Bharati Zamora MD Vitamin D 25 hydroxy, Basic metabolic panel, eGFR 12/24/2024 11:55 AM CDT Lab [facility] [address] [place] [address] Secondary hyperparathyroidism; Vitamin D deficiency 12/24/2024 11:52 AM CDT - 12/24/2024 11:59 PM CDT Hospital Encounter [facility] [address] [place] [address] Osteopenia of multiple sites Discharge Disposition: Discharge to home or self care 12/14/2024 Telephone [facility] [address] [facility] [address] [place] [address] [place] [address] Andrea Sherman RN from Last 3 Months Immunizations Immunization Administration [...] Adjuvanted, PF, IM (Arexvy) 08/02/2023 Sars-cov-2 Covid-19 Jez, Christopher baker, Original/omicron Ba.1 07/30/2024 ZOSTER Recombinant 07/14/2019,05/12/2019 Surgical History Surgery Date Site/Laterality Comments SPINE SURGERY 10/07/2014 - 10/06/2015 L4 URETERAL STENT PLACEMENT 02/04/2025 - 03/06/2025 [facility] Medical History Medical History Date Comments Hypertension COPD (chronic obstructive pulmonary disease) (HC C) Hyperlipidemia Chronic kidney disease Kidney stone 02/2025 ED [facility] Family History Medical History Relation Name Comments [...] Mass Index 23.73 03/02/2025 11:12 AM CDT Plan of Treatment Health Maintenance Due Date Last Done Comments DTaP/Tdap/Td Vaccine (1 - Tdap) 1956 Depression Screening 08/25/2025 08/25/2024, 01/22/2024, 12/20/2023, Additional history exists Well Visit 65+ 08/25/2025 08/25/2024 Fall Risk Assessment 03/02/2026 03/02/2025, 08/25/2024, 01/22/2024, Additional history exists Pneumococcal vaccine 65+ Completed 016, 10/02/2016, 09/20/2015, Additional history exists Zoster Vaccine Completed 07/14/2019, 05/12/2019 Influenza Vaccine Completed 07/30/2024, , 06/25/2022, Additional history exists Hepatitis B Screening Completed 08/19/2024 Hepatitis C Screening Completed 08/19/2024 Procedures Procedure Name Priority Date/Time Associated Diagnosis Comments SCAN - RADIOLOGY/IMAGING 02/24/2025 SCAN - RADIOLOGY/IMAGING 02/23/2025 PULMONARY FUNCTION TEST (PFT) Routine 01/06/2025 12:42 [...] HEPATITIS C ANTIBODY Routine 08/19/2024 10:22 AM PROFESSOR OF MUSIC Encounter for hepatitis C screening test for low risk patient from Last 3 Months or Most Recently Relevant to Health Maintenance Results * SCAN - RADIOLOGY/IMAGING (02/24/2025) Anatomical Region Laterality Modality Other us Provider Scanning Final Result * SCAN - RADIOLOGY/IMAGING (02/23/2025) Anatomical Region Laterality Modality Other us Provider Scanning Edited Result - Final * Pulmonary Function Test -[facility] PFT Lab- CAM-8D; Oxygen Assessment Titration (01/06/2025 12:42 PM CDT) Anatomical Region Laterality Modality PFT Narrative 01/06/2025 5:09 PM CDT Table formatting from the original result was not included. [facility] Division of Pulmonary & Critical Care Medicine [address] [place] [address]; [place] [address] [facility]; [place] [address]; [phone] Pulmonary Function Laboratory Pulmonary Stress Test Simple/Oxygen [...] 90 124 0 6 min 0 sec / 88/91 125 2 Recovery: 1 4 92 115 1 161/81 1.03 34% 3 4 98 96 0.5 *Som rate of perceived exertion (1-10 dyspnea scale) Reji, CHEST 2003; 123:1408 Walk Test Summary: Six Minute Walk Distance: 750 ft Six-minute Walk Work [distance (m) x body wt (kg)]: 34586 kg.m (normal >60,000kg.m) Oxygen required to maintain [...] Vitamin D deficiency, Osteopenia of multiple sites. Herbarium Worker/Model: [facility] [facility] (S/N [id number]) Facility LSC value of 0.022 for the [...] Haroon Lund M.D. MF: ALBERT Report ID: [id number] Reading Location: [place] [address] Procedure Note Haroon Lund MD - 12/27/2024 EXAM DESCRIPTION: DEXA AXIAL SKELETON BONE DENSITY 1 OR MORE SITES REASON FOR STUDY: 79 y/o year old M with given history of: vitamin d defiency Screening. Vitamin D deficiency, Osteopenia of multiple sites. Herbarium Worker/Model: [facility] [facility] (S/N [id number]) Facility LSC value of 0.022 for the [...] 8:54 AM - Electronically signed by Haroon PRICE: ALBERT Report ID: [id number] Reading Location: [place] [address] us Bharati Zamora MD IMG DXA PROCEDURES Final [...] ORDERABLES Final Resul t Performing Organization Address City/State/[facility] Co de Phone Number [facility] [place]) [facility] Department [place] [address] * Vitamin D 25 hydroxy (12/24/2024 11:57 AM CDT) Vitamin D 25-OH 37 30 - 80 ng/mL Blood 12/24/2024 11:5 7 AM CDT 12/24/2024 12:02 PM CDT Bharati Zamora MD LAB BLOOD ORDERABLES Final Resul t Performing Organization Address City/[facility]/ZIP Co de Phone Number [facility] ([place]) [facility] Department [place] [address] * Basic metabolic panel (12/24/2024 11:57 AM CDT) Sodium 137 135 - 145 mmol/L Potassium, pl 3.9 3.3 - 4.9 mmol/L [facility] ([place]) Chloride 100 97 - 110 mmol/L [facility] ([place]) CO2 25 22 - 32 mmol/L [facility] ([place]) Anion gap 12 2 - 15 mmol/L [facility] ([place]) BUN 11 6 - 25 mg/dL [facility] ([place]) Creatinine 1.18 0.80 - 1.30 mg/dL [facility] ([place]) Glucose 141 70 - 199 mg/dL [facility] ([place]) Comment: Interpretive Data Fasting glucose [...] 2022. Calcium 8.5 8.5 - 10.3 mg/dL [facility] ([place]) Blood 12/24/2024 11:5 7 AM CDT 12/24/2024 12:02 PM CDT us Bharati Zamora MD LAB BLOOD ORDERABLES Final Resul t Performing Organization Address City/[facility]/ZIP Co de Phone Number [facility] ([place]) [facility] Department of [address] [place] [address] * Hepatitis C antibody Blood (08/19/2024 10:22 AM PROFESSOR OF MUSIC) Pathologist [facility] Hep C Ab Nonreactive Nonreactive Comment: Interpretive [...] last revised on 2019. Testing performed by: [facility], [address] [place] [address], [place]., [address] Blood 08/19/2024 10:2 2 AM PROFESSOR OF MUSIC 08/19/2024 5:19 PM PROFESSOR OF MUSIC us Rufus Candelario MD LAB MICROBIOLOGY - [facility] L ORDERABLES Final Result [facility] ([place]) [facility] [place] [address] from Last 3 Months or Most Recently Relevant to Health Maintenance Insurance MEDICARE MEDICARE [facility] MEDICARE Advance Directives For more information, please contact: [phone] * Full Code (Latest Code Status on File) Date Activated Date Inactivated Comments 12/10/2023 5:44 PM 12/16/2023 10:07 PM * Full Code Date Activated Date Inactivated Comments 10/17/2023 10:30 AM 10/18/2023 5:35 AM Care Teams Civil Engineering Specialist Relationship Specialty Start Date End Date Rufus Candelario MD [address] [place] [address] PCP - General Family Medicine 04/15/23
--- OUTSIDE RECORDS SUMMARY | 2025-03-03 13:25 | XMS_ITS | Referral Summary ---
Author Organization [facility] Address [address] [place] [address] Care Team Providers Care Log Preparer Name Role Phone Rufus Candelario MD Primary Care Provider [phone] Encounters Date Type Department Care Team Description 03/02/2025 Telephone [facility] [address] [address] Maria Luisa Villarreal RN 03/02/2025 11:30 AM CDT Office Visit [facility] [address] [address] Rufus Candelario MD Dyslipidemia (Primary Dx); Hypocalcemia; Centrilobular emphysema (HCC); Lumbar spondylosis with myelopathy; Osteopenia of multiple sites; Secondary hyperparathyroidism; Essential (primary) hypertension 02/25/2025 Telephone [facility] [address] [address] Rufus Candelario MD 02/24/2025 Orders Only [facility] [address] [place] [address] Scanning, Provider 02/23/2025 Orders Only [facility] [address] [place] [address] Scanning, Provider 01/08/[address] [facility] [address] [facility] [address] [place] [address] [place] [address] Andrea Sherman RN 01/06/2025 1:30 PM CDT Office Visit 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 [address] [facility] [address] [place] [address] Chronic obstructive pulmonary disease, unspecified COPD type (HCC) Discharge Disposition: Discharge to home or self care 01/01/2025 Results Follow-Up [facility] [address] [address] Bharati Zamora MD Dexa Axial Skeleton Bone Density 1 or 2 Site 01/01/2025 Results Follow-Up [facility] [address] [address] Bharati Zamora MD Vitamin D 25 hydroxy, Basic metabolic panel, eGFR 12/24/2024 11:55 AM CDT Lab [address] [address] Secondary hyperparathyroidism; Vitamin D deficiency 12/24/2024 11:52 AM CDT - 12/24/2024 11:59 PM CDT Hospital Encounter [facility] [address] [place] [address] Osteopenia of multiple sites Discharge Disposition: Discharge to home or self care 12/14/[address] [facility] [address] [facility] [address] [place] [address] [place] [address] Andrea Sherman RN from Last 3 Months Allergies No known active allergies Medications naloxone [...] as needed for pain 120 tablet 01/14/20 025 Discontin ued(Reord er) Active Problems Problem [...] 09/08/2024 Assessment & Plan (09/08/2024 4:08 PM MIDDLE SCHOOL TECHNOLOGY TEACHER): Patient reports some concerns about memory, especially short-term Often things will come back to home, though can take extra time to find things Able to drive and does not get lost, able to manage finances Power of meteorological aide for Will continue to monitor Drug-induced nausea [...] 12/11/2023 Assessment & Plan (12/12/2023 1:21 PM MIDDLE SCHOOL TECHNOLOGY TEACHER): -continue airway clearance with hypertonic saline twice daily and flutter valve Assessment & Plan (12/11/2023 12:39 PM MIDDLE SCHOOL TECHNOLOGY TEACHER): -continue airway clearance with hypertonic saline twice [...] today) Assessment & Plan (12/12/2023 1:20 PM MIDDLE SCHOOL TECHNOLOGY TEACHER): -diagnosed 10/2023 on bronchoscopy, nodular disease w/ [...] omadacycline Assessment & Plan (12/11/2023 12:36 PM MIDDLE SCHOOL TECHNOLOGY TEACHER): -diagnosed 10/2023 on bronchoscopy, nodular disease w/ [...] 12/10/2023 Assessment & Plan (09/08/2024 4:07 PM MIDDLE SCHOOL TECHNOLOGY TEACHER): Stable, has chronic pain, multiple sites, generally well controlled with current medications Patient unable to bend over to do work, has pain with walking Current doses no longer providing significant relief Patient is strictly medications, no risk for abuse Will increase oxycodone to 20 mg q.6 hours p.r.n. Assessment & Plan (12/10/2023 6:36 PM MIDDLE SCHOOL TECHNOLOGY TEACHER): - cont home oxy, duloxetine, gabapentin - pending renal function, may want to dose reduce gabapentin - stool softeners PRN Gout 12/10/2023 Assessment & Plan (02/11/2024 4:05 PM CDT): Stable, well controlled, no major flares Continue allopurinol 100 mg daily Assessment & Plan (12/10/2023 6:35 PM MIDDLE SCHOOL TECHNOLOGY TEACHER): - allopurinol CKD (chronic kidney disease) 12/10/2023 Assessment & Plan (09/08/2024 4:07 PM MIDDLE SCHOOL TECHNOLOGY TEACHER): Last EGFR was 54, PTH mildly elevated [...] baseline Assessment & Plan (12/12/2023 1:21 PM MIDDLE SCHOOL TECHNOLOGY TEACHER): -monitor renal function, renally dose meds -elevation in creatinine to 1.9 3/6. Unlikely due to antibiotics which were just started, but will monitor. Agree with IV hydration Assessment & Plan (12/11/2023 12:37 PM MIDDLE SCHOOL TECHNOLOGY TEACHER): -monitor renal function, renally dose meds Assessment & Plan (12/14/2023 11:54 AM MIDDLE SCHOOL TECHNOLOGY TEACHER): Cr 1.55 outpatient, presumably representing CKD3. 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 - RPP + rhino/entero virus - CXR as elsewhere - abx as elsewhere - see COPD Cervical radiculopathy 04/30/2023 Assessment & Plan (07/22/2023 10:03 AM CDT): Continues to have constant pain; has some relief with current medications to improve function -symptoms worse in lower back -with medication able to take shelter and -use every 6 hours (4 tabs [...] PRN Assessment & Plan (09/08/2024 4:07 PM MIDDLE SCHOOL TECHNOLOGY TEACHER): Stable, patient reports it takes less to [...] required Assessment & Plan (12/13/2023 4:45 PM MIDDLE SCHOOL TECHNOLOGY TEACHER): -Continue home Trelegy daily and albuterol prn Assessment & Plan (12/12/2023 1:20 PM MIDDLE SCHOOL TECHNOLOGY TEACHER): -Continue home Trelegy daily and albuterol prn Assessment & Plan (12/11/2023 12:36 PM MIDDLE SCHOOL TECHNOLOGY TEACHER): Continue home Trelegy and albuterol prn Assessment & Plan (12/11/2023 10:25 AM MIDDLE SCHOOL TECHNOLOGY TEACHER): COPD w/ severe airflow limitation and lower [...] daily Assessment & Plan (09/08/2024 4:06 PM MIDDLE SCHOOL TECHNOLOGY TEACHER): Stable, well controlled Continue rosuvastatin 5 mg [...] Adjuvanted, PF, IM (Arexvy) 08/02/2023 Sars-cov-2 Covid-19 Christopher Story, Chrissie/batsheva Ba.1 07/30/2024 ZOSTER Recombinant 07/14/2019,05/12/2019 Social History [...] 03/02/2025 11:12 AM CDT Plan of Treatment Not on file [...] HEPATITIS C ANTIBODY Routine 08/19/2024 10:22 AM MIDDLE SCHOOL TECHNOLOGY TEACHER Encounter for hepatitis C screening test for [...] from the original result was not included. [facility] Division of Pulmonary & Critical Care Medicine [address] [place] [address]; [address]; [place] [address]; [phone] Pulmonary Function Laboratory Pulmonary Stress Test Simple/Oxygen [...] Work [distance (m) x body wt (kg)]: 24990 kg.m (normal >60,000kg.m) Oxygen required to maintain [...] Vitamin D deficiency, Osteopenia of multiple sites. Sales And Marketing Manager/Model: ZeroCater SL (S/N [id number]) Facility LSC value of 0.022 for the [...] Haroon Lund M.D. MF: ALBERT Report ID: [id number] Reading Location: [id number] Procedure Note Haroon Lund MD - 12/27/2024 EXAM DESCRIPTION: DEXA AXIAL SKELETON BONE DENSITY 1 OR MORE SITES REASON FOR STUDY: 79 y/o year old M with given history of: vitamin d defiency Screening. Vitamin D deficiency, Osteopenia of multiple sites. Sales And Marketing Manager/Model: AddressReport (S/N [id number]) Facility LSC value of 0.022 for the [...] see below follow up recommendations. [facility] of low bone mineral density may [...] Haroon Lund M.D. MF: ALBERT Report ID: [id number] Reading Location: [id number] Bharati Zamora MD IMG DXA PROCEDURES Final [...] ORDERABLES Final Resul t Performing Organization Address City/[facility]/ZIP Co de Phone Number ARACELI SANDERS (AMERICUS) 1 [facility] [place] [address] * Vitamin D 25 hydroxy (12/24/2024 11:57 AM CDT) Vitamin D 25-OH 37 30 - 80 ng/mL Blood 12/24/2024 11:5 7 AM CDT 12/24/2024 12:02 PM CDT us Bharati Zamora MD LAB BLOOD ORDERABLES Final Resul t Performing Organization Address [facility] de Phone Number ARACELI SANDERS (AMERICUS) 1 [facility] [place] [address] * Basic metabolic panel (12/24/2024 11:57 AM CDT) Sodium 137 135 - 145 mmol/L Potassium, pl 3.9 3.3 - 4.9 mmol/L [facility] (CAR) Chloride 100 97 - 110 mmol/L [facility] ([facility] CO2 25 22 - 32 mmol/L [facility] (CAR) Anion gap 12 2 - 15 mmol/L [facility] (CAR) BUN 11 6 - 25 mg/dL [facility] (CAR) Creatinine 1.18 0.80 - 1.30 mg/dL [facility] (CAR) Glucose 141 70 - 199 mg/dL [facility] ([facility]) Comment: Interpretive Data Fasting glucose [...] BLOOD ORDERABLES Final Resul t ARACELI SANDERS (CAR) 1 [facility] [place] [place] [address] * Hepatitis C antibody Blood (08/19/2024 10:22 AM MIDDLE SCHOOL TECHNOLOGY TEACHER) Hep C Ab Nonreactive Nonreactive Comment: Interpretive [...] last revised on 2019. Testing performed by: [facility], [address] [place] [address]., [id number] Blood 08/19/2024 10:2 2 AM MIDDLE SCHOOL TECHNOLOGY TEACHER 08/19/2024 5:19 PM MIDDLE SCHOOL TECHNOLOGY TEACHER us Rufus Candelario MD LAB MICROBIOLOGY - GENERA L ORDERABLES Final Result ARACELI SANDERS (AMERICUS) 1 [facility] [place] [place] [employer] [place] [address] from Last 3 Months or Most Recently Relevant to Health Maintenance Insurance MEDICARE [facility] Advance Directives For more information, please contact: [phone] * Full Code (Latest Code Status on File) Date Activated Date Inactivated Comments 12/10/2023 5:44 PM 12/16/2023 10:07 PM * Full Code Date Activated Date Inactivated Comments 10/17/2023 10:30 AM 10/18/2023 5:35 AM Care Teams Log Preparer Relationship Specialty Start Date End Date Ruf[place] [address] PCP - General Family Medicine 04/15/23
== END 2025-03-03 13:17 | disposition home or self-care (01) ==
LOC: ANHIMG 13:18
PROVIDERS: PCP Hospitalist; Visit Provider Urology
DX: N20.1 Calculus of ureter (principal)
CPT/HCPCS: 74018

== ENCOUNTER 2025-03-05 11:21 | Outpatient (CLI) | payer MEDICARE, SELFPAY ==
--- OUTSIDE RECORDS SUMMARY | 2025-03-05 11:31 | XMS_ITS | Encounter Summary ---
Author Organization [facility] Address [address] [place] [address] Phone Care Team Providers Care Automotive Upholsterer Name Role Phone Unknown, Notinfile Primary Care Provider Unavail Rufus Mack MD Primary Care Provider [phone] Coby Adler RN Unavailable [phone] Encounter Details Date Type Department Care Team [...] COVID: Suspected 12/10/2023 12/10/2023 12/10/2023 8:28 PM HEEL SEAT POUNDER Rhino/Enterovirus 12/10/2023 12/10/2023 12/17/2023 3:05 AM CDT documented as of this encounter Care Teams Automotive Upholsterer Relationship Specialty Start Date End Date Unknown, Notinfile PCP - General 01/24/23 04/14/23 Rufus Candelario MD [address] [place] [address] PCP - General Family Medicine 04/15/23 Coby Adler, RN [address] [address] [facility] Out[facility] Sales Operations 12/17/23 12/17/23 documented as of this encounter
--- OUTSIDE RECORDS SUMMARY | 2025-03-05 11:31 | XMS_ITS | Encounter Summary ---
Author Organization [facility] Address [address] [place] [address] Phone Care Team Providers Care Elevating Grader Operator Name Role Phone Unknown, Notinfile Primary Care Provider Unavail Rufus Mack MD Primary Care Provider [phone] Coby Adler RN Unavailable [phone] Encounter Details Date Type Department Care Team [...] COVID: Suspected 12/10/2023 12/10/2023 12/10/2023 8:28 PM SOFTWARE ENGINEERING SUPERVISOR Rhino/Enterovirus 12/10/2023 12/10/2023 12/17/2023 3:05 AM CDT documented as of this encounter Care Teams Elevating Grader Operator Relationship Specialty Start Date End Date Unknown, Notinfile PCP - General 01/24/23 04/14/23 Rufus Candelario MD [address] [place] [address] PCP - General Family Medicine 04/15/23 Coby Adler, RN [address] [address] [facility] Outpatient Data Acquisition Technician 12/17/23 12/17/23 documented as of this encounter
--- OUTSIDE RECORDS SUMMARY | 2025-03-05 11:31 | XMS_ITS | Encounter Summary ---
Author Organization [facility] Address [address] [place] [address] Phone Care Team Providers Care Data Center Technician Name Role Phone Unknown, Notinfile Primary Care Provider Unavail Rufus Mack MD Primary Care Provider [phone] Coby Adler RN Unavailable [phone] Encounter Details Date Type Department Care Team [...] COVID: Suspected 12/10/2023 12/10/2023 12/10/2023 8:28 PM WRAPPER STITCHER Rhino/Enterovirus 12/10/2023 12/10/2023 12/17/2023 3:05 AM CDT documented as of this encounter Care Teams Data Center Technician Relationship Specialty Start Date End Date Unknown, Notinfile PCP - General 01/24/23 04/14/23 Rufus Candelario MD [address] [place] [address] PCP - General Family Medicine 04/15/23 Coby Adler, SERAFIN [address] [address] [facility] Out[facility] Motor Vehicle Examiner 12/17/23 12/17/23 documented as of this encounter
--- OUTSIDE RECORDS SUMMARY | 2025-03-05 11:31 | XMS_ITS | Encounter Summary ---
Author Organization [facility] Address [address] [place] [address] Phone Care Team Providers Care Clinical Appeals Reviewer Name Role Phone Unknown, Notinfile Primary Care Provider Unavail Rufus Mack MD Primary Care Provider [phone] Coby Adler RN Unavailable [phone] Encounter Details Date Type Department Care Team [...] COVID: Suspected 12/10/2023 12/10/2023 12/10/2023 8:28 PM ASSOCIATE CHIEF NURSE Rhino/Enterovirus 12/10/2023 12/10/2023 12/17/2023 3:05 AM CDT documented as of this encounter Care Teams Clinical Appeals Reviewer Relationship Specialty Start Date End Date Unknown, Notinfile PCP - General 01/24/23 04/14/23 Rufus Candelario MD [address] [place] [address] PCP - General Family Medicine 04/15/23 Coby Adler, RN [address] [address] [facility] Outpatient Manager Technical Support 12/17/23 12/17/23 documented as of this encounter
--- OUTSIDE RECORDS SUMMARY | 2025-03-05 11:31 | XMS_ITS | Clinical Summary ---
Author Organization [facility] Address [address] [place] [address] Care Team Providers Care Fluid Designer Name Role Phone Rufus Candelario MD Primary Care Provider [phone] [phone] Allergies No known active allergies Medications naloxone [...] 09/08/2024 Assessment & Plan (09/08/2024 4:08 PM ECHO VASC TECH): Patient reports some concerns about memory, especially short-term Often things will come back to home, though can take extra time to find things Able to drive and does not get lost, able to manage finances Power of civil litigation attorney for Will continue to monitor Drug-induced [...] 12/11/2023 Assessment & Plan (12/12/2023 1:21 PM ECHO VASC TECH): -continue airway clearance with hypertonic saline twice daily and flutter valve Assessment & Plan (12/11/2023 12:39 PM ECHO VASC TECH): -continue airway clearance with hypertonic saline twice [...] today) Assessment & Plan (12/12/2023 1:20 PM ECHO VASC TECH): -diagnosed 10/2023 on bronchoscopy, nodular disease w/ [...] omadacycline Assessment & Plan (12/11/2023 12:36 PM ECHO VASC TECH): -diagnosed 10/2023 on bronchoscopy, nodular disease w/ [...] 12/10/2023 Assessment & Plan (09/08/2024 4:07 PM ECHO VASC TECH): Stable, has chronic pain, multiple sites, generally well controlled with current medications Patient unable to bend over to do work, has pain with walking Current doses no longer providing significant relief Patient is strictly medications, no risk for abuse Will increase oxycodone to 20 mg q.6 hours p.r.n. Assessment & Plan (12/10/2023 6:36 PM ECHO VASC TECH): - cont home oxy, duloxetine, gabapentin - pending renal function, may want to dose reduce gabapentin - stool softeners PRN Gout 12/10/2023 Assessment & Plan (02/11/2024 4:05 PM CDT): Stable, well controlled, no major flares Continue allopurinol 100 mg daily Assessment & Plan (12/10/2023 6:35 PM ECHO VASC TECH): - allopurinol CKD (chronic kidney disease) 12/10/2023 Assessment & Plan (09/08/2024 4:07 PM ECHO VASC TECH): Last EGFR was 54, PTH mildly elevated [...] baseline Assessment & Plan (12/12/2023 1:21 PM ECHO VASC TECH): -monitor renal function, renally dose meds -elevation in creatinine to 1.9 12/10. Unlikely due to antibiotics which were just started, but will monitor. Agree with IV hydration Assessment & Plan (12/11/2023 12:37 PM ECHO VASC TECH): -monitor renal function, renally dose meds Assessment & Plan (12/14/2023 11:54 AM ECHO VASC TECH): Cr 1.55 outpatient, presumably representing CKD3. 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 - RPP + rhino/entero virus - CXR as elsewhere - abx as elsewhere - see COPD Cervical radiculopathy 04/30/2023 Assessment & Plan (07/22/2023 10:03 AM CDT): Continues to have constant pain; has some relief with current medications to improve function -symptoms worse in lower back -with medication able to take retirement and -use every 6 hours (4 tabs [...] PRN Assessment & Plan (09/08/2024 4:07 PM ECHO VASC TECH): Stable, patient reports it takes less to [...] required Assessment & Plan (12/13/2023 4:45 PM ECHO VASC TECH): -Continue home Trelegy daily and albuterol prn Assessment & Plan (12/12/2023 1:20 PM ECHO VASC TECH): -Continue home Trelegy daily and albuterol prn Assessment & Plan (12/11/2023 12:36 PM ECHO VASC TECH): Continue home Trelegy and albuterol prn Assessment & Plan (12/11/2023 10:25 AM ECHO VASC TECH): COPD w/ severe airflow limitation and lower [...] daily Assessment & Plan (09/08/2024 4:06 PM ECHO VASC TECH): Stable, well controlled Continue rosuvastatin 5 mg [...] AM CDT [facility] Visit [facility] [address] [place] [address] Rufus Candelario MD Dyslipidemia (Primary Dx); Hypocalcemia; Centrilobular emphysema (HCC); Lumbar spondylosis with myelopathy; Osteopenia of multiple sites; Secondary hyperparathyroidism; Essential (primary) hypertension 03/02/2025 Telephone [facility] [place] [address] [place] [address] Maria Luisa Villarreal RN 02/25/2025 Telephone [facility] [place] [address] [place] [address] Rufus Candelario MD 02/24/2025 Orders Only [facility] [address] [place] [address] Scanning, Provider 02/23/2025 [facility] [address] [place] [address] Scanning, Provider 01/08/2025 Telephone [facility] [address] [facility] [address]th [place] [address] [place] [address] Andrea Sherman RN 01/06/2025 1:30 PM CDT Office Visit [facility] Pulmonary [address] [facility] [address]th [place] [address] [place] [address] Lester Hair MD Abnormal chest CT (Primary Dx); Chronic obstructive pulmonary disease, unspecified COPD type (HCC); Hypoxemia; Cavitary lesion of lung; 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 01/06/2025 12:17 PM CDT - 01/06/2025 11:59 PM CDT Hospital Encounter [facility] Pulmonary [address] [facility] [address] [place] [address] Chronic obstructive pulmonary disease, unspecified COPD type (HCC) Discharge Disposition: Discharge to home or self care 01/01/2025 Results Follow-Up [facility] [address] [address] Bharati Zamora MD Dexa Axial Skeleton Bone Density 1 or 2 Site 01/01/2025 Results Follow-Up [facility] [address], [place] [address] Bharati Zamora MD Vitamin D 25 hydroxy, Basic metabolic panel, eGFR 12/24/2024 11:55 AM CDT Lab [facility] [address] [place] [address] Secondary hyperparathyroidism; Vitamin D deficiency 12/24/2024 11:52 AM CDT - 12/24/2024 11:59 PM CDT Hospital Encounter [facility] [address] [place] [address] Osteopenia of multiple sites Discharge Disposition: Discharge to home or self care 12/14/2024 Telephone [facility] Pulmonary [address] [facility] [address] [place] [address] [place] [address] Andrea Sherman RN from Last [...] L4 URETERAL STENT PLACEMENT 02/04/2025 - 03/06/2025 [facility] Medical History Medical History Date Comments Hypertension COPD (chronic obstructive pulmonary disease) (HC C) Hyperlipidemia Chronic kidney disease Kidney stone 02/2025 ED [facility] Family History Medical History Relation [...] HEPATITIS C ANTIBODY Routine 08/19/2024 10:22 AM ECHO VASC TECH Encounter for hepatitis C screening test for [...] the original result was not included. [facility] Division of Pulmonary & Critical Care Medicine [address] [place] [address]; [place] [facility]; [place] [address]; [phone] Pulmonary Function Laboratory Pulmonary Stress Test Simple/Oxygen [...] Work [distance (m) x body wt (kg)]: 75890 kg.m (normal >60,000kg.m) Oxygen required to maintain [...] Vitamin D deficiency, Osteopenia of multiple sites. Superintendent Overhead Distribution/Model: [employer] SL (S/N 20306) Facility LSC value of 0.022 for the [...] Haroon Lund M.D. MF: ALBERT Report ID: [id number] Reading Location: [place] [address] Procedure Note Haroon Lund MD - 12/27/2024 EXAM DESCRIPTION: DEXA AXIAL SKELETON BONE DENSITY 1 OR MORE SITES REASON FOR STUDY: 79 y/o year old M with given history of: vitamin d defiency Screening. Vitamin D deficiency, Osteopenia of multiple sites. Superintendent Overhead Distribution/Model: [employer] (S/N 19406) Facility LSC value of 0.022 for the [...] signed by Haroon PRICE: ALBERT Report ID: [id number] Reading Location: [place] [address] us Bharati Zamora MD IMG DXA PROCEDURES [...] ORDERABLES Final Resul t Performing Organization Address City/State/[facility] Co de Phone Number [facility] [place]) 5 [facility] [place] [address] * Vitamin D 25 hydroxy (12/24/2024 11:57 AM CDT) Vitamin D 25-OH 37 30 - 80 ng/mL Blood 12/24/2024 11:5 7 AM CDT 12/24/2024 12:02 PM CDT Bharati Zamora MD LAB BLOOD ORDERABLES Final Resul t Performing Organization Address City/[facility]/ZIP Co de Phone Number AR[facility]ELI [place] ([place]) 1 [facility] Department [place] [address] * Basic metabolic panel (12/24/2024 11:57 AM CDT) Sodium 137 135 - 145 mmol/L Potassium, pl 3.9 3.3 - 4.9 mmol/L [facility] ([place]) Chloride 100 97 - 110 mmol/L [facility] ([place]) CO2 25 22 - 32 mmol/L [facility] ([place]) Anion gap 12 2 - 15 mmol/L [facility] ([place]) BUN 11 6 - 25 mg/dL [facility] ([place]) Creatinine 1.18 0.80 - 1.30 mg/dL [facility] ([place]) Glucose 141 70 - 199 mg/dL [facility] ([place]) Comment: Interpretive Data Fasting [...] 2022. Calcium 8.5 8.5 - 10.3 mg/dL [facility] ([place]) Blood 12/24/2024 11:5 7 AM CDT 12/24/2024 12:02 PM CDT us Bharati Zamora MD LAB BLOOD ORDERABLES Final Resul t Performing Organization Address City/[facility]/ZIP Co de Phone Number AR[facility]I [facility] ([place]) 1 [facility] [place] [address] * Hepatitis C antibody Blood (08/19/2024 10:22 AM ECHO VASC TECH) Pathologist [facility] Hep C [...] last revised on 2019. Testing performed by: [facility], [address] [place] [address], [place]., [address] Blood 08/19/2024 10:2 2 AM ECHO VASC TECH 08/19/2024 5:19 PM ECHO VASC TECH us Rufus Candelario MD LAB MICROBIOLOGY - [facility] L ORDERABLES Final Result [facility] ([place]) 1 [facility] Department [place] [address] from Last 3 Months or Most Recently Relevant to Health Maintenance Insurance MEDICARE MEDICARE [facility] MEDICARE Advance Directives For more information, please contact: [phone] * Full Code (Latest Code Status on File) Date Activated Date Inactivated Comments 12/10/2023 5:44 PM 12/16/2023 10:07 PM * Full Code Date Activated Date Inactivated Comments 10/17/2023 10:30 AM 10/18/2023 5:35 AM Care Teams Fluid Designer Relationship Specialty Start Date End Date Rufus Candelario MD [address] [place] [address] PCP - General Family Medicine 04/15/23
--- OUTSIDE RECORDS SUMMARY | 2025-03-05 11:31 | XMS_ITS | Encounter Summary ---
Author Organization [facility] Address [address] [place] [address] Phone Care Team Providers Care Lining Closer Name Role Phone Unknown, Notinfile Primary Care Provider Unavail Rufus Mack MD Primary Care Provider [phone] Coby Adler RN Unavailable [phone] Encounter Details Date Type Department Care Team [...] COVID: Suspected 12/10/2023 12/10/2023 12/10/2023 8:28 PM UNDERWRITING CLERK Rhino/Enterovirus 12/10/2023 12/10/2023 12/17/2023 3:05 AM CDT documented as of this encounter Care Teams Lining Closer Relationship Specialty Start Date End Date Unknown, Notinfile PCP - General 01/24/23 04/14/23 Rufus Candelario MD [address] [place] [address] PCP - General Family Medicine 04/15/23 Coby Adler, RN [address] [address] SHOP Outpatient Nursery Attendant 12/17/23 12/17/23 documented as of this encounter
--- OUTSIDE RECORDS SUMMARY | 2025-03-05 11:31 | XMS_ITS | Encounter Summary ---
Author Organization [facility] Address [address] [place] [address] Phone Care Team Providers Care Operations Advisor Name Role Phone Unknown, Notinfile Primary Care Provider Unavail Rufus Mack MD Primary Care Provider [phone] Coby Adler RN Unavailable [phone] Encounter Details Date Type Department Care Team [...] COVID: Suspected 12/10/2023 12/10/2023 12/10/2023 8:28 PM CLINICAL CASE MANAGER Rhino/Enterovirus 12/10/2023 12/10/2023 12/17/2023 3:05 AM CDT documented as of this encounter Care Teams Operations Advisor Relationship Specialty Start Date End Date Unknown, Notinfile PCP - General 01/24/23 04/14/23 Rufus Candelario MD [address] [place] [address] PCP - General Family Medicine 04/15/23 Coby Adler, RN [address] [address] [facility] Outpatient Affirmative Action Specialist 12/17/23 12/17/23 documented as of this encounter
--- OUTSIDE RECORDS SUMMARY | 2025-03-05 11:31 | XMS_ITS | Referral Summary ---
Author Organization [facility] Address [address] [place] [address] Care Team Providers Care Facility Specialist Name Role Phone Rufus Candelario MD Primary Care Provider [phone] Encounters Date Type Department Care Team Description 03/02/2025 Telephone [facility] [address] [address] Maria Luisa Villarreal RN 03/02/2025 11:30 AM CDT Office Visit [facility] [address] [address] Rufus Candelario MD Dyslipidemia (Primary Dx); Hypocalcemia; Centrilobular emphysema (HCC); Lumbar spondylosis with myelopathy; Osteopenia of multiple sites; Secondary hyperparathyroidism; Essential (primary) hypertension 02/25/2025 Telephone [facility] [address] [address] Rufus Candelario MD 02/24/2025 Orders Only [facility] [address] [place] [address] Scanning, Provider 02/23/2025 Orders Only [facility] [address] [place] [address] Scanning, Provider 01/08/[address] [facility] [address] [facility] [address]th [place] [address] [place] [address] Andrea Sherman RN 01/06/2025 1:30 PM CDT Office Visit 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 [address] [facility] [address] [place] [address] Chronic obstructive pulmonary disease, unspecified COPD type (HCC) Discharge Disposition: Discharge to home or self care 01/01/2025 Results Follow-Up [facility] [address] [address] Bharati Zamora MD Dexa Axial Skeleton Bone Density 1 or 2 Site 01/01/2025 Results Follow-Up [facility] [address] [address] Bharati Zamora MD Vitamin D 25 hydroxy, Basic metabolic panel, eGFR 12/24/2024 11:55 AM CDT Lab [address] [address] Secondary hyperparathyroidism; Vitamin D deficiency 12/24/2024 11:52 AM CDT - 12/24/2024 11:59 PM CDT Hospital Encounter [facility] [address] [place] [address] Osteopenia of multiple sites Discharge Disposition: Discharge to home or self care 12/14/[address] [facility] [address] [facility] [address] [place] [address] [place] [address] Andrea Sherman RN from Last 3 Months [...] 09/08/2024 Assessment & Plan (09/08/2024 4:08 PM SOLAR BUSINESS DEVELOPER): Patient reports some concerns about memory, especially short-term Often things will come back to home, though can take extra time to find things Able to drive and does not get lost, able to manage finances Power of collections attorney for Will continue to monitor Drug-induced [...] 12/11/2023 Assessment & Plan (12/12/2023 1:21 PM SOLAR BUSINESS DEVELOPER): -continue airway clearance with hypertonic saline twice daily and flutter valve Assessment & Plan (12/11/2023 12:39 PM SOLAR BUSINESS DEVELOPER): -continue airway clearance with hypertonic saline twice [...] today) Assessment & Plan (12/12/2023 1:20 PM SOLAR BUSINESS DEVELOPER): -diagnosed 10/2023 on bronchoscopy, nodular disease w/ [...] omadacycline Assessment & Plan (12/11/2023 12:36 PM SOLAR BUSINESS DEVELOPER): -diagnosed 10/2023 on bronchoscopy, nodular disease w/ [...] 12/10/2023 Assessment & Plan (09/08/2024 4:07 PM SOLAR BUSINESS DEVELOPER): Stable, has chronic pain, multiple sites, generally well controlled with current medications Patient unable to bend over to do work, has pain with walking Current doses no longer providing significant relief Patient is strictly medications, no risk for abuse Will increase oxycodone to 20 mg q.6 hours p.r.n. Assessment & Plan (12/10/2023 6:36 PM SOLAR BUSINESS DEVELOPER): - cont home oxy, duloxetine, gabapentin - pending renal function, may want to dose reduce gabapentin - stool softeners PRN Gout 12/10/2023 Assessment & Plan (02/11/2024 4:05 PM CDT): Stable, well controlled, no major flares Continue allopurinol 100 mg daily Assessment & Plan (12/10/2023 6:35 PM SOLAR BUSINESS DEVELOPER): - allopurinol CKD (chronic kidney disease) 12/10/2023 Assessment & Plan (09/08/2024 4:07 PM SOLAR BUSINESS DEVELOPER): Last EGFR was 54, PTH mildly elevated [...] baseline Assessment & Plan (12/12/2023 1:21 PM SOLAR BUSINESS DEVELOPER): -monitor renal function, renally dose meds -elevation in creatinine to 1.9 3/6. Unlikely due to antibiotics which were just started, but will monitor. Agree with IV hydration Assessment & Plan (12/11/2023 12:37 PM SOLAR BUSINESS DEVELOPER): -monitor renal function, renally dose meds Assessment & Plan (12/14/2023 11:54 AM SOLAR BUSINESS DEVELOPER): Cr 1.55 outpatient, presumably representing CKD3. - Cr 1.71 > 1.92 > 1.43 > 1.58, ALICE improved with IVF - Hold losartan for now - Renally dose meds, avoid nephrotoxins - requesting RN to assist with records from prior Cullet Crusher - Referral to Nephrology at discharge Sore throat 12/10/2023 Assessment & Plan (12/11/2023 10:27 AM SOLAR BUSINESS DEVELOPER): C/o sore throat x 4 days CONSULTING ANALYST. - RPP + rhino/entero virus - CXR as elsewhere - abx as elsewhere - see COPD Cervical radiculopathy 04/30/2023 Assessment & Plan (07/22/2023 10:03 AM CDT): Continues to have constant pain; has some relief with current medications to improve function -symptoms worse in lower back -with medication able to take residential and -use every 6 hours (4 tabs [...] PRN Assessment & Plan (09/08/2024 4:07 PM SOLAR BUSINESS DEVELOPER): Stable, patient reports it takes less to [...] required Assessment & Plan (12/13/2023 4:45 PM SOLAR BUSINESS DEVELOPER): -Continue home Trelegy daily and albuterol prn Assessment & Plan (12/12/2023 1:20 PM SOLAR BUSINESS DEVELOPER): -Continue home Trelegy daily and albuterol prn Assessment & Plan (12/11/2023 12:36 PM SOLAR BUSINESS DEVELOPER): Continue home Trelegy and albuterol prn Assessment & Plan (12/11/2023 10:25 AM SOLAR BUSINESS DEVELOPER): COPD w/ severe airflow limitation and lower [...] daily Assessment & Plan (09/08/2024 4:06 PM SOLAR BUSINESS DEVELOPER): Stable, well controlled Continue rosuvastatin 5 mg [...] HEPATITIS C ANTIBODY Routine 08/19/2024 10:22 AM SOLAR BUSINESS DEVELOPER Encounter for hepatitis C screening test for [...] the original result was not included. [facility] Division of Pulmonary & Critical Care Medicine [address] [place] [address]; [place] [address]; [place] [address]; [phone] Pulmonary Function Laboratory Pulmonary Stress Test Simple/Oxygen [...] Work [distance (m) x body wt (kg)]: 21825 kg.m (normal >60,000kg.m) Oxygen required to maintain [...] Vitamin D deficiency, Osteopenia of multiple sites. Flat Folder/Model: [employer] SL (S/N [address]) Facility LSC value of 0.022 for the [...] Haroon Lund M.D. MF: ALBERT Report ID: [id number] Reading Location: [id number] Procedure Note Haroon Lund MD - 12/27/2024 EXAM DESCRIPTION: DEXA AXIAL SKELETON BONE DENSITY 1 OR MORE SITES REASON FOR STUDY: 79 y/o year old M with given history of: vitamin d defiency Screening. Vitamin D deficiency, Osteopenia of multiple sites. Flat Folder/Model: [employer] (S/N 58960) Facility LSC value of 0.022 for the [...] see below follow up recommendations. [facility] of low bone mineral density may [...] Haroon Lund M.D. MF: ALBERT Report ID: [id number] Reading Location: [id number] Bharati Zamora MD IMG DXA PROCEDURES Final [...] ORDERABLES Final Resul t Performing Organization Address City/[facility]/ZIP Co de Phone Number [facility]I [place] ([place]) 1 [facility] [place] [address] * Vitamin D 25 hydroxy (12/24/2024 11:57 AM CDT) Vitamin D 25-OH 37 30 - 80 ng/mL Blood 12/24/2024 11:5 7 AM CDT 12/24/2024 12:02 PM CDT us Bharati Zamora MD LAB BLOOD ORDERABLES Final Resul t Performing Organization Address [facility] de Phone Number ARACELI SANDERS ([place]) 1 [facility] [place] [address] * Basic metabolic panel (12/24/2024 11:57 AM CDT) Sodium 137 135 - 145 mmol/L Potassium, pl 3.9 3.3 - 4.9 mmol/L [facility] ([place]) Chloride 100 97 - 110 mmol/L [facility] ([place]) CO2 25 22 - 32 mmol/L [facility] ([place]) Anion gap 12 2 - 15 mmol/L [facility] ([place]) BUN 11 6 - 25 mg/dL [facility] ([place]) Creatinine 1.18 0.80 - 1.30 mg/dL [facility] ([place]) Glucose 141 70 - 199 mg/dL [facility] ([place]) Comment: Interpretive Data Fasting [...] Final Resul t ARACELI SANDERS ([place]) 1 [facility] [place] [address] * Hepatitis C antibody Blood (08/19/2024 10:22 AM SOLAR BUSINESS DEVELOPER) Hep C Ab Nonreactive Nonreactive Comment: Interpretive [...] last revised on 2019. Testing performed by: [facility], [address] [place] [address]., [id number] Blood 08/19/2024 10:2 2 AM SOLAR BUSINESS DEVELOPER 08/19/2024 5:19 PM SOLAR BUSINESS DEVELOPER us Rufus Candelario MD LAB MICROBIOLOGY - GENERA L ORDERABLES Final Result [facility]I SANDERS ([place]) 1 [facility] [place] [address] from Last 3 Months or Most Recently Relevant to Health Maintenance Insurance MEDICARE [facility] MEDICARE Advance Directives For more information, please contact: [phone] * Full Code (Latest Code Status on File) Date Activated Date Inactivated Comments 12/10/2023 5:44 PM 12/16/2023 10:07 PM * Full Code Date Activated Date Inactivated Comments 10/17/2023 10:30 AM 10/18/2023 5:35 AM Care Teams Facility Specialist Relationship Specialty Start Date End Date Ruf[place] [address] PCP - General Family Medicine 04/15/23
--- OUTSIDE RECORDS SUMMARY | 2025-03-05 11:31 | XMS_ITS | Patient Health Record ---
Author Organization Tommy Xavier MD [facility] Address [address] [place] [address] Care Team Providers Care Tile Roofer Name Role Phone Aayush King Unavailable [phone] Allergies No Known Allergies Reason For Referral No Information Medications Medication SIG (Take, Route, Frequency, Duration) Notes Start Date End Date Status Losartan Potassium 50 MG 1 tablet Orally Once a day for 90 days Active Ventolin HFA 108 (90 Base) MCG/ACT Inhalation for -2 05/04/2019 Active Gabapentin 300 1 ORAL 3 times a day for -2 03/06/2019 Active [place] 10-325 MG 1 ORAL five times da [...] Problem Status W/U Status Risk Notes Problem 45195823 Essential (primary) hypertension (I10) Active confirmed Problem 546710529 Chronic respiratory failure with hypoxia (J96.11) Active confirmed Problem 176365353 Solitary pulmonary nodule (R91.1) Active confirmed Problem Chronic obstructive pulmonary disease (36460328) CHRONIC OBSTRUCTIVE PULMONARY DISEASE (J44.9) 05/06/20 Active confirmed Problem Hyperlipidemia (91034919) HYPERLIPIDEMIA (E78.5) 05/06/20 Active confirmed Plan Of Treatment No Information Insurance Providers Payer Name Payer Address Payer Phone Subscriber Number Group Number Insured Name Patient Relationship to Insured Coverage Start Date Coverage End Date MEDICARE [address] [address] [place] [phone] [id number] [place] Self - patient is the insured 6 AARP SUPPLEMENT [address] [place] [address] [id number] [place] Self - patient is the insured 6 Medical (General) History Medical History History ICD Code LUMBAR SPINAL STENOSIS M48.061 CHRONIC OBSTRUCTIVE PULMONARY DISEASE J4 4.9 HYPERLIPIDEMIA E78.5 SHORT OF BREATH ON EXERTION R06.09 CERVICAL RADICULOPATHY M54.12 Surgical History Surgery Date(Month/Year) BACK SURGERY TONSILLECTOMY
--- OUTSIDE RECORDS SUMMARY | 2025-03-05 11:31 | XMS_ITS | Encounter Summary ---
Author Organization [facility] Address [address] [place] [address] Phone Care Team Providers Care Premix Concrete Batcher Name Role Phone Unknown, Notinfile Primary Care Provider Unavail Rufus Mack MD Primary Care Provider [phone] Coby Adler RN Unavailable [phone] Encounter Details Date Type Department Care Team [...] COVID: Suspected 12/10/2023 12/10/2023 12/10/2023 8:28 PM PATCHER HELPER Rhino/Enterovirus 12/10/2023 12/10/2023 12/17/2023 3:05 AM CDT documented as of this encounter Care Teams Premix Concrete Batcher Relationship Specialty Start Date End Date Unknown, Notinfile PCP - General 01/24/23 04/14/23 Rufus Candelario MD [address] [place] [address] PCP - General Family Medicine 04/15/23 Coby Adler, SERAFIN [address] [address] [facility] Outpatient Electronic Installer 12/17/23 12/17/23 documented as of this encounter
== END 2025-03-05 11:22 | disposition home or self-care (01) ==
PROVIDERS: PCP Hospitalist; Visit Provider Urology
DX: Z01.818 Encounter for other preprocedural examination (principal); N20.1 Calculus of ureter
CPT/HCPCS: 87086

== ENCOUNTER 2025-03-09 00:10 | Day surgery (SDC) | payer MEDICARE, SELFPAY ==
--- NOTE | 2025-03-03 08:45 | PC.NURSE ---
Report to the Outpatient Waiting Room, entrance under the green pavilion located off [facility], at time _8:15 AM on date ___03/09/25____. Planned Procedure Time: __10:15 AM .? Time changes happen often and if your time is changed the preop area will call you the afternoon before. - You and your visitor will be asked to self-screen and do not enter if you have any COVID symptoms. Please call surgeon if you need to reschedule. - A mask is optional within the hospital at this time. Patients may have clear liquids (water, carbonated beverages, clear teas, apple juice) until 3 hours prior to surgery( 7:15 AM) with a maximum of 20 ounces. - No food from midnight until time of surgery and no smoking, or chewing tobacco (or any form of nicotine). No chewing gum, candy or mints. Take only the following medications with a SIP of water on the morning of surgery: __AMLODIPINE,DULOXETINE,GABAPENTIN,OXYCODONE IF NEEDED_TRELEGY INHALER DO NOT STOP ANY OF YOUR OTHER PRESCRIPTION MEDICATIONS PRIOR TO SURGERY EXCEPT THE FOLLOWING Hold all vitamins and supplements for 3 days per anesthesiologist.LAST DOSE 03/05/25 Medications to discontinue per physician NONE Please no make-up, nail irish, hairspray, perfume, deodorant, or body powder the day of surgery.? No jewelry (including any body piercings) or valuables the day of surgery, leave them at home.? Please take a shower or bath the night before, or the morning of, surgery with an antibacterial soap.? Wear comfortable, loose fitting clothing.? Children are encouraged to wear pajamas. - Jewelry must be removed prior to entering the operating room.? Rings and piercings that are not removed may be cut off. - The hospital will not accept responsibility for valuables.? - Please leave all valuables, including medications, at home the day of surgery. If you are going home after surgery, a licensed train driver must drive you home.? - NO public transportation without another adult if you receive anesthesia. - We recommend that an adult stay with you for 24 hours following discharge. - We also recommend that you do not drive, make important decision, drink alcoholic beverages, or take any drugs that were not prescribed by your health care provider for at least 24 hours after your discharge time. Follow any additional instructions given to you from your surgeon. Telephone instructions given to ___PATIENT and asked if any additional questions and then verbalized understanding. Patient advised to call surgeon office or pre surgery nurse liaison [phone] if any additional questions.
[2025-03-03 09:00] VITALS: BMI 23.7
[2025-03-09] VITALS (8 sets, daily range): BP systolic 110–151; BP diastolic 52–88; PULSE 74–87; RESP 14–20; TEMP 36.5–37; O2SAT 89–100
--- NOTE | ~2025-03-09 | XR_ITS ---
EXAMINATION: XR retrograde pyelo w/stent RT DATE: 03/09/2025 11:18 INDICATION: Right internal ureteral stent placement TECHNIQUE: Fluoroscopic images from a right stent placement are submitted for review. 23 seconds of f luoroscopy time. FINDINGS: There is a right double-J internal ureteral stent projecting in expected position, with proximal [place] loop at the level of the renal pelvis and distal loop in the pelvis within the bladder lumen. IMPRESSION: 1. Right internal ureteral stent placement. Please refer to real-time procedural findings for detai ls. Reviewed, dictated and finalized at location A. IMPRESSION: 1. Right internal ureteral stent placement. Please refer to real-time procedu ral findings for details.
--- OUTSIDE RECORDS SUMMARY | 2025-03-09 00:15 | XMS_ITS | Encounter Summary ---
Author Organization [facility] Address [address] [place] [address] Phone Care Team Providers Care Inside Sales Executive Name Role Phone Unknown, Notinfile Primary Care Provider Unavail able Rufus Candelario MD Primary Care Provider [phone] Coby Adler RN Unavailable [phone] Encounter Details Date Type Department Care Team [...] COVID: Suspected 12/10/2023 12/10/2023 12/10/2023 8:28 PM COMMUNITY DEVELOPMENT PLANNER Rhino/Enterovirus 12/10/2023 12/10/2023 12/17/2023 3:05 AM CDT documented as of this encounter Care Teams Inside Sales Executive Relationship Specialty Start Date End Date Unknown, Notinfile PCP - General 01/24/23 04/14/23 Rufus Candelario MD [address] [place] [address] PCP - General Family Medicine 04/15/23 Coby Adler, SERAFIN [address] [address] [facility] Outpatient Overhauler Helper 12/17/23 12/17/23 documented as of this encounter
--- OUTSIDE RECORDS SUMMARY | 2025-03-09 00:15 | XMS_ITS | Encounter Summary ---
Author Organization [facility] Healthcare Address [address] [place] [address] Care Team Providers Care Single Stayer Operator Name Role Phone Rufus Candelario MD Primary Care Provider [phone] Encounter Details Date Type Department Care Team (Late st Contact Info) Description 03/03/2025 Orders Only [facility] [address] [place] [address] Scanning, Provider Social History Tobacco Use Types [...] Date/Time Associated Diagnosis Comments SCAN - RADIOLOGY/IMAGING 03/03/2025 documented in this encounter Results * SCAN - RADIOLOGY/IMAGING (03/03/2025) Anatomical Region Laterality Modality Other us Provider Scanning Final Result documented in this encounter Visit Diagnoses Not on filedocumented in this encounter Care Teams Single Stayer Operator Relationship Specialty Start Date End Date Rufus Candelario MD [address] [place] [address] PCP - General Family Medicine 04/15/23 documented as of this encounter
--- OUTSIDE RECORDS SUMMARY | 2025-03-09 00:15 | XMS_ITS | Encounter Summary ---
Author Organization [facility] Address [address] [place] [address] Phone Care Team Providers Care Air Tool Operator Name Role Phone Unknown, Notinfile Primary Care Provider Unavail Rufus Mack MD Primary Care Provider [phone] Coby Adler RN Unavailable [phone] Encounter Details Date Type Department Care Team [...] COVID: Suspected 12/10/2023 12/10/2023 12/10/2023 8:28 PM IRONWORKER Rhino/Enterovirus 12/10/2023 12/10/2023 12/17/2023 3:05 AM CDT documented as of this encounter Care Teams Air Tool Operator Relationship Specialty Start Date End Date Unknown, Notinfile PCP - General 01/24/23 04/14/23 Rufus Candelario MD [address] [place] [address] PCP - General Family Medicine 04/15/23 Coby dAler, SERAFIN [address] [address] [facility] Outpatient Flame Hardener 12/17/23 12/17/23 documented as of this encounter
--- OUTSIDE RECORDS SUMMARY | 2025-03-09 00:15 | XMS_ITS | Encounter Summary ---
Author Organization [facility] Address [address] [place] [address] Phone Care Team Providers Care Air Bag Builder Name Role Phone Unknown, Notinfile Primary Care Provider Unavail Rufus Mack MD Primary Care Provider [phone] Coby Adler RN Unavailable [phone] Encounter Details Date Type Department Care Team [...] COVID: Suspected 12/10/2023 12/10/2023 12/10/2023 8:28 PM BANQUET SERVER ON CALL Rhino/Enterovirus 12/10/2023 12/10/2023 12/17/2023 3:05 AM CDT documented as of this encounter Care Teams Air Bag Builder Relationship Specialty Start Date End Date Unknown, Notinfile PCP - General 01/24/23 04/14/23 Rufus Candelario MD [address] [place] [address] PCP - General Family Medicine 04/15/23 Coby Adler, RN [address] [address] [facility] Outpatient Popcorn Machine Operator 12/17/23 12/17/23 documented as of this encounter
--- OUTSIDE RECORDS SUMMARY | 2025-03-09 00:15 | XMS_ITS | Encounter Summary ---
Author Organization [facility] Address [address] [place] [address] Phone Care Team Providers Care Energy Systems Engineer Name Role Phone Unknown, Notinfile Primary Care Provider Unavail able Rufus Candelario MD Primary Care Provider [phone] Coby Adler RN Unavailable Encounter Details Date [...] COVID: Suspected 12/10/2023 12/10/2023 12/10/2023 8:28 PM AIRCRAFT ELECTRONICS TECHNICAL OFFICER Rhino/Enterovirus 12/10/2023 12/10/2023 12/17/2023 3:05 AM CDT documented as of this encounter Care Teams Energy Systems Engineer Relationship Specialty Start Date End Date Unknown, Notinfile PCP - General 01/24/23 04/14/23 Rufus Candelario MD [address] [place] [address] PCP - General Family Medicine 04/15/23 Coby Adler, RN [address] [address] [facility] Outpatient Histotechnician 12/17/23 12/17/23 documented as of this encounter
--- OUTSIDE RECORDS SUMMARY | 2025-03-09 00:15 | XMS_ITS | Encounter Summary ---
Author Organization [facility] Address [address] [place] [address] Phone Care Team Providers Care Sales Engagement Manager Name Role Phone Unknown, Notinfile Primary Care Provider Unavail Rufus Mack MD Primary Care Provider [phone] Coby Adlre RN Unavailable [phone] Encounter Details Date Type Department Care Team [...] COVID: Suspected 12/10/2023 12/10/2023 12/10/2023 8:28 PM OIL TANK CAR CLEANER Rhino/Enterovirus 12/10/2023 12/10/2023 12/17/2023 3:05 AM CDT documented as of this encounter Care Teams Sales Engagement Manager Relationship Specialty Start Date End Date Unknown, Notinfile PCP - General 01/24/23 04/14/23 Rufus Candelario MD [address] [place] [address] PCP - General Family Medicine 04/15/23 Coby Adler, RN [address] [address] [facility] Outpatient Surveillance Inspector 12/17/23 12/17/23 documented as of this encounter
--- OUTSIDE RECORDS SUMMARY | 2025-03-09 00:15 | XMS_ITS | Encounter Summary ---
Author Organization [facility] Address [address] [place] [address] Phone Care Team Providers Care Weekend Receptionist Name Role Phone Unknown, Notinfile Primary Care Provider Unavail Rufus Mack MD Primary Care Provider [phone] Coby Adler RN Unavailable [phone] Encounter Details Date Type Department Care Team [...] COVID: Suspected 12/10/2023 12/10/2023 12/10/2023 8:28 PM TRANSPORT [employer]PS OFFICER Rhino/Enterovirus 12/10/2023 12/10/2023 12/17/2023 3:05 AM CDT documented as of this encounter Care Teams Weekend Receptionist Relationship Specialty Start Date End Date Unknown, Notinfile PCP - General 01/24/23 04/14/23 Rufus Candelario MD [address] [place] [address] PCP - General Family Medicine 04/15/23 Coby Adler, RN [address] [address] [facility] Outpatient Wheat Farmer 12/17/23 12/17/23 documented as of this encounter
--- OUTSIDE RECORDS SUMMARY | 2025-03-09 00:15 | XMS_ITS | Encounter Summary ---
Author Organization [facility] Address [address] [place] [address] Phone Care Team Providers Care Diesel Engine Mechanic Name Role Phone Unknown, Notinfile Primary Care Provider Unavail Rufus Mack MD Primary Care Provider [phone] Coby Adler RN Unavailable [phone] Encounter Details Date Type Department Care Team [...] COVID: Suspected 12/10/2023 12/10/2023 12/10/2023 8:28 PM BRICK SETTER Rhino/Enterovirus 12/10/2023 12/10/2023 12/17/2023 3:05 AM CDT documented as of this encounter Care Teams Diesel Engine Mechanic Relationship Specialty Start Date End Date Unknown, Notinfile PCP - General 01/24/23 04/14/23 Rufus Candelario MD [address] [place] [address] PCP - General Family Medicine 04/15/23 Coby Adler, RN [address] [address] [facility] Outpatient Molder Wax Ball 12/17/23 12/17/23 documented as of this encounter
--- OUTSIDE RECORDS SUMMARY | 2025-03-09 00:16 | XMS_ITS | Patient Health Record ---
Author Organization Tommy Xavier MD PA Address [address] [place] [address] Care Team Providers Care Knitting Supervisor Name Role Phone Aayush King Unavailable [phone] Allergies No Known Allergies Reason For Referral No Information Medications Medication SIG (Take, Route, Frequency, Duration) Notes Start Date End Date Status Losartan Potassium 50 MG 1 tablet Orally Once a day for 90 days Active Ventolin HFA 108 (90 Base) MCG/ACT Inhalation for -2 05/04/2019 Active Gabapentin 300 1 ORAL 3 times a day for -2 03/06/2019 Active [place] 10-325 MG 1 ORAL five times da [...] stered Influenza, quadrivalent, spl it virus Unknown 06/25/2022 Administered Influenza, quadrivalent, spl it, preservative free, 3 years or older Unknown 10/13/2014 Administered MMR Unknown 03/13/2019 Administered Pneumococcal conjugate PCV 7 Unknown 10/02/2016 Adminis tered Pneumococcal polysaccharide PPV23 Unknown 10/02/2016 Ad ministered Influenza (split), 3 yrs and above Unknown 07/28/2015 A dministered Influenza, quadrivalent, spl it virus Unknown 07/20/2020 Administered Pneumococcal polysaccharide PPV23 Unknown 09/20/2015 Ad ministered Social History Tobacco Use: Social History Observation Description Date Details (start date - stop date) Former Smoker NA - NA Tobacco Use/Smoking Question Answer Notes Tobacco use: former smoker Problems Problem Type SNOMED Code ICD Code Onset Dates Problem Status W/U Status Risk Notes Problem 28052655 Essential (primary) hypertension (I10) Active confirmed Problem 184785738 Chronic respiratory failure with hypoxia (J96.11) Active confirmed Problem 096122491 Solitary pulmonary nodule (R91.1) Active confirmed Problem Chronic obstructive pulmonary disease (02050197) CHRONIC OBSTRUCTIVE PULMONARY DISEASE (J44.9) 05/06/20 Active confirmed Problem Hyperlipidemia (81461180) HYPERLIPIDEMIA (E78.5) 05/06/20 Active confirmed Plan Of Treatment No Information Insurance Providers Payer Name Payer Address Payer Phone Subscriber Number Group Number Insured Name Patient Relationship to Insured Coverage Start Date Coverage End Date MEDICARE [address] [address] [place] [phone] [id number] [place] Self - patient is the insured 6 AARP SUPPLEMENT [address] [place] [address] [id number] [place] Self - patient is the insured 6 Medical (General) History Medical History History ICD Code LUMBAR SPINAL STENOSIS M48.061 CHRONIC OBSTRUCTIVE PULMONARY DISEASE J4 4.9 HYPERLIPIDEMIA E78.5 SHORT OF BREATH ON EXERTION R06.09 CERVICAL RADICULOPATHY M54.12 Surgical History Surgery Date(Month/Year) BACK SURGERY TONSILLECTOMY
--- OUTSIDE RECORDS SUMMARY | 2025-03-09 00:16 | XMS_ITS | Clinical Summary ---
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 for Will continue to monitor Drug-induced nausea [...] 12/11/2023 Assessment & Plan (12/12/2023 1:21 PM PREVENTIVE MEDICINE OFFICER): -continue airway clearance with hypertonic saline twice daily and flutter valve Assessment & Plan (12/11/2023 12:39 PM PREVENTIVE MEDICINE OFFICER): -continue airway clearance with hypertonic saline twice [...] today) Assessment & Plan (12/12/2023 1:20 PM PREVENTIVE MEDICINE OFFICER): -diagnosed 10/2023 on bronchoscopy, nodular disease w/ [...] omadacycline Assessment & Plan (12/11/2023 12:36 PM PREVENTIVE MEDICINE OFFICER): -diagnosed 10/2023 on bronchoscopy, nodular disease w/ [...] 12/10/2023 Assessment & Plan (09/08/2024 4:07 PM PREVENTIVE MEDICINE OFFICER): Stable, has chronic pain, multiple sites, generally well controlled with current medications Patient unable to bend over to do work, has pain with walking Current doses no longer providing significant relief Patient is strictly medications, no risk for abuse Will increase oxycodone to 20 mg q.6 hours p.r.n. Assessment & Plan (12/10/2023 6:36 PM PREVENTIVE MEDICINE OFFICER): - cont home oxy, duloxetine, gabapentin - pending renal function, may want to dose reduce gabapentin - stool softeners PRN Gout 12/10/2023 Assessment & Plan (02/11/2024 4:05 PM CDT): Stable, well controlled, no major flares Continue allopurinol 100 mg daily Assessment & Plan (12/10/2023 6:35 PM PREVENTIVE MEDICINE OFFICER): - allopurinol CKD (chronic kidney disease) 12/10/2023 Assessment & Plan (09/08/2024 4:07 PM PREVENTIVE MEDICINE OFFICER): Last EGFR was 54, PTH mildly elevated [...] baseline Assessment & Plan (12/12/2023 1:21 PM PREVENTIVE MEDICINE OFFICER): -monitor renal function, renally dose meds -elevation in creatinine to 1.9 12/10. Unlikely due to antibiotics which were just started, but will monitor. Agree with IV hydration Assessment & Plan (12/11/2023 12:37 PM PREVENTIVE MEDICINE OFFICER): -monitor renal function, renally dose meds Assessment & Plan (12/14/2023 11:54 AM PREVENTIVE MEDICINE OFFICER): Cr 1.55 outpatient, presumably representing CKD3. 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 - RPP + rhino/entero virus - CXR [...] PRN Assessment & Plan (09/08/2024 4:07 PM PREVENTIVE MEDICINE OFFICER): Stable, patient reports it takes less to [...] required Assessment & Plan (12/13/2023 4:45 PM PREVENTIVE MEDICINE OFFICER): -Continue home Trelegy daily and albuterol prn Assessment & Plan (12/12/2023 1:20 PM PREVENTIVE MEDICINE OFFICER): -Continue home Trelegy daily and albuterol prn Assessment & Plan (12/11/2023 12:36 PM PREVENTIVE MEDICINE OFFICER): Continue home Trelegy and albuterol prn Assessment & Plan (12/11/2023 10:25 AM PREVENTIVE MEDICINE OFFICER): COPD w/ severe airflow limitation and lower [...] daily Assessment & Plan (09/08/2024 4:06 PM PREVENTIVE MEDICINE OFFICER): Stable, well controlled Continue rosuvastatin 5 mg [...] Encounters Date Type Department Care Team Description 03/03/[address] [facility] [address] [place] [address] Scanning, Provider 03/02/2025 11:30 AM CDT [facility] [address] [address] Rufus Candelario MD Dyslipidemia (Primary Dx); Hypocalcemia; Centrilobular emphysema (HCC); Lumbar spondylosis with myelopathy; Osteopenia of multiple sites; Secondary hyperparathyroidism; Essential (primary) hypertension 03/02/2025 Telephone [facility] [address] [address] Maria Luisa Villarreal RN 02/25/2025 Telephone [facility] [address] [address] Rufus Candelario MD 02/24/[address] [facility] Information Management [address] [place] [address] Scanning, Provider 02/23/[address] [facility] Information Management [address] [place] [address] Scanning, Provider 01/08/2025 Telephone [facility] [address] [place] [address] [place] [address] Andrea Sherman RN 01/06/2025 1:30 PM CDT Office Visit [facility] [address] [place] [address] [place] [address] Lester Hair MD Abnormal chest CT (Primary Dx); Chronic obstructive pulmonary disease, unspecified COPD type (HCC); Hypoxemia; Cavitary lesion of lung; 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 01/06/2025 12:17 PM CDT - 01/06/2025 11:59 PM CDT Hospital Encounter [facility] [address] [facility] [address] [place] [address] Chronic obstructive pulmonary disease, unspecified COPD type (HCC) Discharge Disposition: Discharge to home or self care 01/01/2025 Results Follow-Up [facility] [address] [phone] Bharati Zamora MD Dexa Axial Skeleton Bone Density 1 or 2 Site 01/01/2025 Results Follow-Up [facility] [address] [place] [phone] Bharati Zamora MD Vitamin D 25 hydroxy, Basic metabolic panel, eGFR 12/24/2024 11:55 AM CDT Lab [address] [address] Secondary hyperparathyroidism; Vitamin D deficiency 12/24/2024 11:52 AM CDT - 12/24/2024 11:59 PM CDT Hospital Encounter [facility] [address] [place] [address] Osteopenia of multiple sites Discharge Disposition: Discharge to home or self care 12/14/2024 Telephone [facility] [address] [place] [address] [place] [phone] Andrea Sherman RN from Last 3 Months [...] L4 URETERAL STENT PLACEMENT 02/04/2025 - 03/06/2025 [facility] Medical History Medical History Date Comments Hypertension COPD (chronic obstructive pulmonary disease) (HC C) Hyperlipidemia Chronic kidney disease Kidney stone 02/2025 ED [facility] Family History Medical History Relation Name Comments [...] Associated Diagnosis Comments SCAN - RADIOLOGY/IMAGING 03/03/2025 SCAN - RADIOLOGY/IMAGING 02/24/2025 SCAN - RADIOLOGY/IMAGING [...] HEPATITIS C ANTIBODY Routine 08/19/2024 10:22 AM PREVENTIVE MEDICINE OFFICER Encounter for hepatitis C screening test for low risk patient from Last 3 Months or Most Recently Relevant to Health Maintenance Results * SCAN - RADIOLOGY/IMAGING (03/03/2025) Anatomical Region Laterality Modality Other us Provider Scanning Final Result * SCAN - RADIOLOGY/IMAGING (02/24/2025) Anatomical Region [...] from the original result was not included. [facility] Division of Pulmonary & Critical Care Medicine [address] [place] [address]; [place] [address] [facility]; [place] [address]; [phone] Pulmonary Function Laboratory Pulmonary Stress Test Simple/Oxygen [...] 90 124 0 6 min 0 sec 12/08 88/91 125 2 Recovery: 1 4 92 115 1 161/81 1.03 34% 3 4 98 96 0.5 *Som rate of perceived exertion (1-10 dyspnea scale) Reji, CHEST 2003; 123:1408 Walk Test Summary: Six Minute Walk Distance: 750 ft Six-minute Walk Work [distance (m) x body wt (kg)]: 16389 kg.m (normal >60,000kg.m) Oxygen required to maintain [...] Vitamin D deficiency, Osteopenia of multiple sites. Spring Tacker/Model: [employer] SL (S/N [id number]) Facility LSC value of 0.022 for the [...] Haroon Lund M.D. MF: ALBERT Report ID: [id number] Reading Location: [id number] Procedure Note Haroon Lund MD - 12/27/2024 EXAM DESCRIPTION: DEXA AXIAL SKELETON BONE DENSITY 1 OR MORE SITES REASON FOR STUDY: 79 y/o year old M with given history of: vitamin d defiency Screening. Vitamin D deficiency, Osteopenia of multiple sites. Spring Tacker/Model: [facility] Discovery SL (S/N 49445) Facility LSC value of 0.022 for the [...] Haroon Lund M.D. MF: ALBERT Report ID: [id number] Reading Location: [place] [address] us Bharati Zamora MD IMG DXA PROCEDURES [...] MD LAB BLOOD ORDERABLES Final Resul t KFRYJX OOP (SELBY MENA PRESTIGE [facility] [place] [address] * Vitamin D 25 hydroxy (12/24/2024 11:57 AM CDT) Vitamin D 25-OH 37 30 - 80 ng/mL Blood 12/24/2024 11:5 7 AM CDT 12/24/2024 12:02 PM CDT Bharati Zamora MD LAB BLOOD ORDERABLES Final Resul t Performing Organization Address [facility]/ZIP Co id Phone Number [facility] ([place]) 1 [facility] Department [place] [address] * Basic metabolic panel (12/24/2024 11:57 AM [...] 2022. Calcium 8.5 8.5 - 10.3 mg/dL [facility] ([place]) Blood 12/24/2024 11:5 7 AM CDT 12/24/2024 12:02 PM CDT Bharati Zamora MD LAB BLOOD ORDERABLES Final Resul t Performing Organization Address [facility] Co de Phone Number [facility] ([place]) 1 [facility] [place] [address] * Hepatitis C antibody Blood (08/19/2024 10:22 AM PREVENTIVE MEDICINE OFFICER) Hep C Ab Nonreactive Nonreactive Comment: Interpretive [...] last revised on 2019. Testing performed by: [facility], [address] [place] [address]., [address] Blood 08/19/2024 10:2 2 AM PREVENTIVE MEDICINE OFFICER 08/19/2024 5:19 PM PREVENTIVE MEDICINE OFFICER us Rufus Candelario MD LAB MICROBIOLOGY - GENERA L ORDERABLES Final Result Performing Organization Address [facility] de Phone Number [facility] ([place]) 1 [facility] [place] [address] from Last 3 Months or Most Recently Relevant to Health Maintenance Insurance MEDICARE [facility] MEDICARE Advance Directives For more information, please contact: [phone] * Full Code (Latest Code Status on File) Date Activated Date Inactivated Comments 12/10/2023 5:44 PM 12/16/2023 10:07 PM * Full Code Date Activated Date Inactivated Comments 10/17/2023 10:30 AM 10/18/2023 5:35 AM Care Teams Welding Machine Operator Electron Beam Relationship Specialty Start Date End Date Rufus Candelario MD [address] [place] [address] PCP - General Family Medicine 04/15/23
--- OUTSIDE RECORDS SUMMARY | 2025-03-09 00:16 | XMS_ITS | Referral Summary ---
Author Organization [facility] Address [address] [place] [address] Care Team Providers Care Hunter Guide Name Role Phone Rufus Candelario MD Primary Care Provider +1 [phone] Encounters Date Type Department Care Team Description 03/03/2025 Orders Only [facility] [address] [place] [address] Scanning, Provider 03/02/2025 Telephone [facility] [address] [address] Maria Luisa Villarreal RN 03/02/2025 11:30 AM CDT [facility] [address] [address] uRfus Candelario MD Dyslipidemia (Primary Dx); Hypocalcemia; Centrilobular emphysema (HCC); Lumbar spondylosis with myelopathy; Osteopenia of multiple sites; Secondary hyperparathyroidism; Essential (primary) hypertension 02/25/2025 Telephone [facility] [address] [phone] Rufus Candelario MD 02/24/2025 Orders Only [facility] [address] [place] [address] Scanning, Provider 02/23/2025 Orders Only [facility] [address] [place] [address] Scanning, Provider 01/08/2025 Telephone [facility] [address] [facility] [address]th [place] [address] [place] [address] Andrea Sherman RN 01/06/2025 1:30 PM CDT Office Visit [facility] [address] [facility] [address]th [place] [address] [place] [address] Lester Hair MD Abnormal chest CT (Primary Dx); Chronic obstructive pulmonary disease, unspecified COPD type (HCC); Hypoxemia; Cavitary lesion of lung; 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 01/06/2025 12:17 PM CDT - 01/06/2025 11:59 PM CDT Hospital Encounter [facility] [address] [facility] [address] [place] [address] Chronic obstructive pulmonary disease, unspecified COPD type (HCC) Discharge Disposition: Discharge to home or self care 01/01/2025 Results Follow-Up [facility] [address] [phone] Bharati Zamora MD Dexa Axial Skeleton Bone Density 1 or 2 Site 01/01/2025 Results Follow-Up [facility] [address] [phone] Bharati Zamora MD Vitamin D 25 hydroxy, Basic metabolic panel, eGFR 12/24/2024 11:55 AM CDT Lab [address] [address] Secondary hyperparathyroidism; Vitamin D deficiency 12/24/2024 11:52 AM CDT - 12/24/2024 11:59 PM CDT Hospital Encounter [facility] [address] [place] [address] Osteopenia of multiple sites Discharge Disposition: Discharge to home or self care 12/14/2024 Telephone [facility] [address] [facility] [address]th [place] [address] [place] [address] Andrea Sherman, RN from Last 3 Months Allergies No [...] Diagnosed Date Chronic respiratory failure with hypoxia Solitary pulmonary nodule 11/30/2024 Essential (primary) hypertension [...] 09/08/2024 Assessment & Plan (09/08/2024 4:08 PM BARK TANNER): Patient reports some concerns about memory, especially short-term Often things will come back to home, though can take extra time to find things Able to drive and does not get lost, able to manage finances Power of staff attorney for Will continue to monitor Drug-induced [...] 12/11/2023 Assessment & Plan (12/12/2023 1:21 PM BARK TANNER): -continue airway clearance with hypertonic saline twice daily and flutter valve Assessment & Plan (12/11/2023 12:39 PM BARK TANNER): -continue airway clearance with hypertonic saline twice [...] today) Assessment & Plan (12/12/2023 1:20 PM BARK TANNER): -diagnosed 10/2023 on bronchoscopy, nodular disease w/ [...] omadacycline Assessment & Plan (12/11/2023 12:36 PM BARK TANNER): -diagnosed 10/2023 on bronchoscopy, nodular disease w/ [...] 12/10/2023 Assessment & Plan (09/08/2024 4:07 PM BARK TANNER): Stable, has chronic pain, multiple sites, generally well controlled with current medications Patient unable to bend over to do work, has pain with walking Current doses no longer providing significant relief Patient is strictly medications, no risk for abuse Will increase oxycodone to 20 mg q.6 hours p.r.n. Assessment & Plan (12/10/2023 6:36 PM BARK TANNER): - cont home oxy, duloxetine, gabapentin - pending renal function, may want to dose reduce gabapentin - stool softeners PRN Gout 12/10/2023 Assessment & Plan (02/11/2024 4:05 PM CDT): Stable, well controlled, no major flares Continue allopurinol 100 mg daily Assessment & Plan (12/10/2023 6:35 PM BARK TANNER): - allopurinol CKD (chronic kidney disease) 12/10/2023 Assessment & Plan (09/08/2024 4:07 PM BARK TANNER): Last EGFR was 54, PTH mildly elevated [...] baseline Assessment & Plan (12/12/2023 1:21 PM BARK TANNER): -monitor renal function, renally dose meds -elevation in creatinine to 1.9 3/6. Unlikely due to antibiotics which were just started, but will monitor. Agree with IV hydration Assessment & Plan (12/11/2023 12:37 PM BARK TANNER): -monitor renal function, renally dose meds Assessment & Plan (12/14/2023 11:54 AM BARK TANNER): Cr 1.55 outpatient, presumably representing CKD3. 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 - RPP + rhino/entero virus - CXR as elsewhere - abx as elsewhere - see COPD Cervical radiculopathy 04/30/2023 Assessment & Plan (07/22/2023 10:03 AM CDT): Continues to have constant pain; has some relief with current medications to improve function -symptoms worse in lower back -with medication able to take fpc and -use every 6 hours (4 tabs [...] PRN Assessment & Plan (09/08/2024 4:07 PM BARK TANNER): Stable, patient reports it takes less to [...] required Assessment & Plan (12/13/2023 4:45 PM BARK TANNER): -Continue home Trelegy daily and albuterol prn Assessment & Plan (12/12/2023 1:20 PM BARK TANNER): -Continue home Trelegy daily and albuterol prn Assessment & Plan (12/11/2023 12:36 PM BARK TANNER): Continue home Trelegy and albuterol prn Assessment & Plan (12/11/2023 10:25 AM BARK TANNER): COPD w/ severe airflow limitation and lower [...] daily Assessment & Plan (09/08/2024 4:06 PM BARK TANNER): Stable, well controlled Continue rosuvastatin 5 mg [...] (Arexvy) 08/02/2023 Sars-cov-2 Covid-19 Mrna, Bi valent, Original/batsheva Ba.1 07/30/2024 ZOSTER Recombinant 07/14/2019,05/12/2019 Social History [...] HEPATITIS C ANTIBODY Routine 08/19/2024 10:22 AM BARK TANNER Encounter for hepatitis C screening test for [...] from the original result was not included. [facility] Division of Pulmonary & Critical Care Medicine [address]; [address]; [place] [id number]; [phone] Pulmonary Function Laboratory Pulmonary Stress Test Simple/Oxygen [...] 90 124 0 6 min 0 sec 3/ 88/91 125 2 Recovery: 1 4 92 115 1 161/81 1.03 34% 3 4 98 96 0.5 *Som rate of perceived exertion (1-10 dyspnea scale) Reji, CHEST 2003; 123:1408 Walk Test Summary: Six Minute Walk Distance: 750 ft Six-minute Walk Work [distance (m) x body wt (kg)]: 82223 kg.m (normal >60,000kg.m) Oxygen required to maintain [...] Vitamin D deficiency, Osteopenia of multiple sites. Supervisor Epoxy Fabrication/Model: [employer] Discovery SL (S/N 94293) Facility LSC value of 0.022 for the [...] Haroon Lund M.D. MF: ALBERT Report ID: [id number] Reading Location: [id number] Procedure Note Haroon Lund MD - 12/27/2024 EXAM DESCRIPTION: DEXA AXIAL SKELETON BONE DENSITY 1 OR MORE SITES REASON FOR STUDY: 79 y/o year old M with given history of: vitamin d defiency Screening. Vitamin D deficiency, Osteopenia of multiple sites. Supervisor Epoxy Fabrication/Model: Game[employer] (S/N 85000) Facility LSC value of 0.022 for the [...] Haroon Lund M.D. MF: ALBERT Report ID: [id number] Reading Location: [place] [address] Bharati Zamora MD [facility] DXA PROCEDURES Final Result * eGFR (12/24/2024 [...] BLOOD ORDERABLES Final Resul t ALEXISTRISHA MARILYN ([place]) 1 [facility] [place] [address] * Vitamin D 25 hydroxy (12/24/2024 11:57 AM CDT) Vitamin D 25-OH 37 30 - 80 ng/mL Blood 12/24/2024 11:5 7 AM CDT 12/24/2024 12:02 PM CDT Bharati Zaomra MD LAB BLOOD ORDERABLES Final Resul t Performing Organization Address City/[facility]/ZIP Co de Phone Number ARACELI SANDERS ([place]) 1 [facility] [place] [address] * Basic metabolic panel (12/24/2024 11:57 AM CDT) Sodium 137 135 - 145 mmol/L Potassium, pl 3.9 3.3 - 4.9 mmol/L [facility] ([place]) Chloride 100 97 - 110 mmol/L [facility] ([place]) CO2 25 22 - 32 mmol/L [facility] ([facility]) Anion gap 12 2 - 15 mmol/L [facility] ([facility]) BUN 11 6 - 25 mg/dL [facility] ([facility]) Creatinine 1.18 0.80 - 1.30 [...] Calcium 8.5 8.5 - 10.3 mg/dL ARACELI [facility] ([place]) Blood 12/24/2024 11:5 7 AM CDT 12/24/2024 12:02 PM CDT us Bharati Zamora MD LAB BLOOD ORDERABLES Final Resul t Performing Organization Address City/[facility]/ZIP Co de Phone Number [facility] ([place]) 1 [facility] [place] [address] * Hepatitis C antibody Blood (08/19/2024 10:22 AM BARK TANNER) Hep C Ab Nonreactive Nonreactive Comment: Interpretive [...] last revised on 2019. Testing performed by: [facility], [address] [place] [address], [place] [address] Blood 08/19/2024 10:2 2 AM BARK TANNER 08/19/2024 5:19 PM BARK TANNER us Rufus Candelario MD LAB MICROBIOLOGY - GENERA L ORDERABLES Final Result Performing Organization Address City/[facility]/ZIP Co de Phone Number ARACELI [facility] ([place]) 1 [facility] [place] [address] from Last 3 Months or Most Recently Relevant to Health Maintenance Insurance MEDICARE [facility] MEDICARE Advance Directives For more information, please contact: [phone] * Full Code (Latest Code Status on File) Date Activated Date Inactivated Comments 12/10/2023 5:44 PM 12/16/2023 10:07 PM * Full Code Date Activated Date Inactivated Comments 10/17/2023 10:30 AM 10/18/2023 5:35 AM Care Teams Hunter Guide Relationship Specialty Start Date End Date Rufus Candelario MD [address] [place] [address] PCP - General Family Medicine 04/15/23
--- NOTE | 2025-03-09 08:49 | P.PNAN_ITS ---
Anes - Initial Pre Proc Eval Procedure: Operation Date: 03/09/25 10:00 Proposed Procedures p Cystoscopy, Right Ureteroscopy, Possible Right Retrograde Pyelogram, Possible Right Stone Extraction, Possible Right Stent Exchange, Possible Holmium Laser - Mariano Newton MD Date/Time: 03/09/25 08:49 Surgeon: Mariano Newton MD Pre Op Diagnosis: right ureteral stone Patient Data Age: 79 Gender: M Height: 1.83 m Weight: 78.75 kg Last Vital Signs Temp 36.5 C 03/09/25 08:15 Pulse 84 03/09/25 08:15 Resp 20 03/09/25 08:15 BP 121/70 03/09/25 08:15 Pulse Ox 89 L 03/09/25 08:15 O2 Del Method Room Air 03/09/25 08:15 Allergies Allergy/AdvReac Type Severity Reaction Status Date / Time No Known Allergies Allergy Verified 03/09/25 08:23 Home Medications ?Medication ?Instructions ?Recorded ?Confirmed ?Type albuterol sulfate 90 mcg/actuation 2 puff inhalation PRN 02/23/25 03/09/25 History aerosol inhaler (Ventolin HFA) allopurinol 100 mg tablet 100 mg PO DAILY 02/23/25 03/09/25 History amlodipine 10 mg tablet 10 mg PO DAILY 02/23/25 03/09/25 History duloxetine 60 mg capsule,delayed 60 mg PO DAILY 02/23/25 03/09/25 History release fluticasone fur. 200 mcg-umeclid 1 inh inhalation DAILY 02/23/25 03/09/25 History 62.5 mcg-vilant 25 mcg inhalat.powder (Trelegy Ellipta) gabapentin 600 mg tablet 600 mg PO TID 02/23/25 03/09/25 History hydrocodone 5 mg-acetaminophen 325 1 tablet PO Q12H PRN pain #14 tabs 02/23/25 03/03/25 Rx mg tablet ondansetron 4 mg disintegrating 4 mg PO Q8H PRN nausea and 02/23/25 03/03/25 Rx tablet vomiting #14 tabs oxycodone 20 mg tablet 20 mg PO Q6H PRN pain 02/23/25 03/09/25 History rosuvastatin 5 mg tablet 5 mg PO HS 02/23/25 03/09/25 History tamsulosin 0.4 mg capsule (Flomax) 0.4 mg PO DAILY 14 days #14 caps 02/23/25 03/09/25 Rx vitamin B complex 1 cap PO DAILY 02/23/25 03/09/25 History vitamin d 3 1 cap PO DAILY 02/23/25 03/09/25 History Patient hx anesthesia problems: none Family hx anesthesia problems: none Results Review: All pre-operative results and documents have been reviewed as part of the pre-operative evaluation. [facility] Past Medical History Medical History Chronic, continuous use of opioids On home O2 Gout HTN (hypertension) HLD (hyperlipidemia) Chronic respiratory failure COPD (chronic obstructive pulmonary disease) Surgical History Surgical History History of tonsillectomy History of lumbar surgery L4 fusion Social History Social History Smoking packs per day: 1.5 Smoking cigarettes per day: 30.0 Years smoked: 40 Smoking pack-years: 60.00 Smoking status: Former smoker Tobacco type: cigarettes Smoking end date: 10/07/01 Alcohol intake: current Drinks per week: 5 Substance use: never Substance use type: does not use Do You Feel Safe in your Home?: Yes Lack of Transportation: No Lack of Food: Never True Current Housing: I Have Housing Concerned About Future Housing: No Difficulty Paying Gas/Electric Bills: No Difficulty Paying for Meds: No Currently Unemployed: YES Education: Decline to Answer Difficulty w/ Childcare or Family Care: No Living arrangements: with family Spiritual care concerns: No Anes - Eval Final PreProcedure Day of Procedure 03/09/25 08:49 Patient weight: normal Heart: regular rate and rhythm Lungs: clear to auscultation Airway: Mallampati scale class II Neurological: alert and oriented Last oral intake: >/= 8 hours ASA classification: IV Emergent: no Anesthetic plan: proceed Anesthesia type and monitoring: general LMA and standard monitoring Results Review: All pre-operative results and documents have been reviewed as part of the pre- operative evaluation. Informed Consent: The patient's anesthetic plan and its attendant risks and benefits were discussed with the patient/family/POA. Questions were solicited and answers provided to the satisfaction of the patient/family/POA.
[2025-03-09] MEDS: LACTATED RINGERS 1,000 ML 30 ML IV CONT (08:50)
--- NOTE | 2025-03-09 08:52 | SUR.PREOP ---
Patient 89% on room air. Per pt this is his normal with his chronic COPD. This RN encouraged daughter, Edilia, to go home and get portable oxygen in the event that pt would need it on the way home. Pt and daughter verbalized understanding. Dr. Disla notified of encounter and O2 sat.
--- NOTE | 2025-03-09 08:59 | WPDANESEPPF ---
Anes - Initial Pre Proc Eval Procedure: Operation Date: 03/09/25 10:00 Proposed Procedures p Cystoscopy, Right Ureteroscopy, Possible Right Retrograde Pyelogram, Possible Right Stone Extraction, Possible Right Stent Exchange, Possible Holmium Laser - Mariano Newton MD Date/Time: 03/09/25 08:59 Surgeon: Mariano Newton MD Pre Op Diagnosis: right ureteral stone Patient Data Age: 79 Gender: M Height: 1.83 m Weight: 78.75 kg Last Vital Signs Temp 36.5 C 03/09/25 08:15 Pulse 84 03/09/25 08:15 Resp 20 03/09/25 08:15 BP 121/70 03/09/25 08:15 Pulse Ox 89 L 03/09/25 08:15 O2 Del Method Room Air 03/09/25 08:15 Allergies Allergy/AdvReac Type Severity Reaction Status Date / Time No Known Allergies Allergy Verified 03/09/25 08:23 Home Medications ?Medication ?Instructions ?Recorded ?Confirmed ?Type albuterol sulfate 90 mcg/actuation 2 puff inhalation PRN 02/23/25 03/09/25 History aerosol inhaler (Ventolin HFA) allopurinol 100 mg tablet 100 mg PO DAILY 02/23/25 03/09/25 History amlodipine 10 mg tablet 10 mg PO DAILY 02/23/25 03/09/25 History duloxetine 60 mg capsule,delayed 60 mg PO DAILY 02/23/25 03/09/25 History release fluticasone fur. 200 mcg-umeclid 1 inh inhalation DAILY 02/23/25 03/09/25 History 62.5 mcg-vilant 25 mcg inhalat.powder (Trelegy Ellipta) gabapentin 600 mg tablet 600 mg PO TID 02/23/25 03/09/25 History hydrocodone 5 mg-acetaminophen 325 1 tablet PO Q12H PRN pain #14 tabs 02/23/25 03/03/25 Rx mg tablet ondansetron 4 mg disintegrating 4 mg PO Q8H PRN nausea and 02/23/25 03/03/25 Rx tablet vomiting #14 tabs oxycodone 20 mg tablet 20 mg PO Q6H PRN pain 02/23/25 03/09/25 History rosuvastatin 5 mg tablet 5 mg PO HS 02/23/25 03/09/25 History tamsulosin 0.4 mg capsule (Flomax) 0.4 mg PO DAILY 14 days #14 caps 02/23/25 03/09/25 Rx vitamin B complex 1 cap PO DAILY 02/23/25 03/09/25 History vitamin d 3 1 cap PO DAILY 02/23/25 03/09/25 History Patient hx anesthesia problems: none Family hx anesthesia problems: none Results Review: All pre-operative results and documents have been reviewed as part of the pre-operative evaluation. [facility] Past Medical History Medical History Chronic, continuous use of opioids On home O2 Gout HTN (hypertension) HLD (hyperlipidemia) Chronic respiratory failure COPD (chronic obstructive pulmonary disease) Surgical History Surgical History History of tonsillectomy History of lumbar surgery L4 fusion Social History Social History Smoking packs per day: 1.5 Smoking cigarettes per day: 30.0 Years smoked: 40 Smoking pack-years: 60.00 Smoking status: Former smoker Tobacco type: cigarettes Smoking end date: 10/07/01 Alcohol intake: current Drinks per week: 5 Substance use: never Substance use type: does not use Do You Feel Safe in your Home?: Yes Lack of Transportation: No Lack of Food: Never True Current Housing: I Have Housing Concerned About Future Housing: No Difficulty Paying Gas/Electric Bills: No Difficulty Paying for Meds: No Currently Unemployed: YES Education: Decline to Answer Difficulty w/ Childcare or Family Care: No Living arrangements: with family Spiritual care concerns: No Anes - Eval Final PreProcedure Day of Procedure 03/09/25 08:59 Patient weight: normal Heart: regular rate and rhythm Lungs: clear to auscultation Airway: Mallampati scale class II Neurological: alert and oriented Last oral intake: >/= 8 hours ASA classification: IV Emergent: no Anesthetic plan: proceed Anesthesia type and monitoring: general LMA and standard monitoring Results Review: All pre-operative results and documents have been reviewed as part of the pre-operative evaluation. Informed Consent: The patient's anesthetic plan and its attendant risks and benefits were discussed with the patient/family/POA. Questions were solicited and answers provided to the satisfaction of the patient/family/POA.
--- NOTE | 2025-03-09 09:44 | WPDHPUPDATE1 ---
History and Physical Update Update Date/Time: 03/09/25 09:44 History and Physical has been reviewed, including an updated exam of the patient. There are NO changes in the patient's condition. Risks, benefits, and alternatives have been discussed and questions answered. Patient agrees to proceed with procedure.
[2025-03-09] MEDS: ceFAZolin 2 GM/D5W 50 ML 2 GM/50 ML BAG IVPB (10:42)
[2025-03-09] MEDS: LIDOCAINE 2% GEL UROJET 10 ML PKG MUCOUS MEM (11:01)
--- NOTE | 2025-03-09 11:06 | S_PTH ---
PATIENT: Norman Fry Jr. LOC: [facility] U#:[id number] AGE/SX: 79/M ROOM: RE03/09/[address]: Mariano Newton, : 1945 BED: DIS: 03/09/2025 SPEC #: [id number] RECD: 03/09/25 13:04 STATUS: DASH BERNAL #: [id number] RAMIREZ: 03/09/25 11:[address]: Aman,Mariano Ocampo DEPT: [facility] Surgical RECD BY: Fritz Toledo ENTERED: 03/09/25 13:05 SP TYPE: Surgical OTHR DR: Rufus Candelario, Tissues: A - Stone Procedures: Gross Exam Level 1 Crystalline Analysis
--- NOTE | 2025-03-09 11:17 | W.PM.PROC2 ---
Procedure Note - Detailed Date of Procedure 03/09/25 Pre-op Diagnosis right ureteral stone Post-op Diagnosis Same Procedure Performed Cystoscopy, right retrograde, right ureteroscopy with stone extraction, right stent exchange 4.8 Argentine contour Surgeon Mariano Newton MD Anesthesia General Description of Procedure Patient is taken to the operative suite correctly identified. Once anesthesia was obtained was placed in dorsal lithotomy position and prepped and draped usual sterile fashion. Twenty-two Argentine scope was inserted in the bladder. There were no tumors noted. The right ureteral stent was grasped and brought out the meatus. Sensor wire was passed through the stent. Ureteral access sheath was then placed. Mini flexible scope was inserted the stone was visualized the proximal ureter. Using escape basket were reviewed retrieved 1 piece. Inspection of the kidney then revealed no significant stone burden. Pyelogram was then performed confirm placement of the stent. 4.8 Argentine contour stent was then placed with the proximal end coiled in the renal pelvis and the distal in the bladder. Bladder was drained. 2% viscous lidocaine was inserted into the urethra and patient is taken recovery stable condition. Plan will be for stent removal in a week's time. This completes dictation. Please send a copy of op note to. Estimated Blood Loss 0 Drains Yes Packing No Pathology Yes Complications No immediate complications Condition Stable Disposition PACU
== END 2025-03-09 12:51 | disposition home or self-care (01) ==
PROVIDERS: PCP Hospitalist; Visit Provider Urology
PROC: (CPT 52352; principal; 2025-03-09 10:00)
DX: N20.1 Calculus of ureter (principal); E78.5 Hyperlipidemia, unspecified; I10 Essential (primary) hypertension; J44.9 Chronic obstructive pulmonary disease, unspecified; J96.10 Chronic respiratory failure, unspecified whether with hypoxia or hypercapnia; Z79.891 Long term (current) use of opiate analgesic; Z79.51 Long term (current) use of inhaled steroids; Z99.81 Dependence on supplemental oxygen; Z98.1 Arthrodesis status; Z87.891 Personal history of nicotine dependence
CPT/HCPCS: 52352; 74420; 82365; 88300; C1769; C1894; C2617; J0690; J2003; J2704; J3010; J7120; Q9966